=== PATIENT | female | born 1975 | race Caucasian/White ===

== ENCOUNTER 2017-11-05 05:19 | Emergency (ER) | payer OTHER ==
[~2017-11-05] VITALS: Ht 162.6 cm; Wt 57.6 kg
[~2017-11-05 05:19] MED LIST: AUGMENTIN 500-500 MG PO; LEVOFLOXACIN500 MG PO; LISINOPRIL-HCT1 EAC1 PO; METOPROLOL SUCC25 MG PO; OMEPRAZOLE20 MG PO; ZOFRAN ODT4 MG PO
--- NOTE | 2017-11-05 11:31 | EKG ---
[facility] [address] [facility] [place] [address] Signed Sinus tachycardia Otherwise normal ECG No previous ECGs available Confirmed by GOGO HILL MD ([id number]) on 11/05/2017 11:30:45 AM Electronically Signed By: GOGO HILL MD 11/05/17 1131 PATIENT NAME: RIVERA CAMILO CANDACE Electrocardiogram DATE OF : 75 PHYSICIAN: GOGO HILL MD REPORT #: [id number] REPORT IS CONFIDENTIAL AND NOT TO BE RELEASED WITHOUT AUTHORIZATION
== END 2017-11-05 09:49 | disposition short-term general hospital (02) ==
LOC: ED 05:19
PROC: 0T9B70Z Drainage of Bladder with Drainage Device, Via Natural or Artificial Opening (ICD-10-PCS; principal; 2017-11-05)
DX: S72.011A Unspecified intracapsular fracture of right femur, initial encounter for closed fracture (principal); F10.129 Alcohol abuse with intoxication, unspecified; I10 Essential (primary) hypertension; F17.200 Nicotine dependence, unspecified, uncomplicated; Z79.899 Other long term (current) drug therapy; W18.30XA Fall on same level, unspecified, initial encounter; Y90.8 Blood alcohol level of 240 mg/100 ml or more
CPT/HCPCS: 51702; 70450; 71045; 72125; 73501; 73502; 74177; 80053; 81001; 83690; 85025; 85610; 85730; 93005; 93010; 96374; 96375; 99285; G0480; J1170; J2060; J2405; J7030; Q9967

== ENCOUNTER 2019-03-06 06:15 | Day surgery (SDC) | payer OTHER ==
[~2019-03-06] VITALS: Ht 162.6 cm; Wt 62.1 kg
--- NOTE | ~2019-03-06 | OR ---
[facility] [address] [place], [place] [address] Draft DATE OF OPERATION: 03/06/2019 SURGEON: Antony Mathew MD PREOPERATIVE DIAGNOSIS: Bony mallet finger, right 5th. POSTOPERATIVE DIAGNOSIS: Bony mallet finger, right 5th. PROCEDURE: Open reduction and internal fixation of bony mallet finger, right 5th. ANESTHESIA: Michael block with some sedation. SPECIMENS AND COMPLICATIONS: There were no specimens or complications. WHAT WAS DONE: The patient was taken to the operating room. After Michael block was administered by the Anesthesia Service and the patient sedated, the right upper extremity was positioned, prepped and draped in a routine sterile fashion. Under biplanar fluoroscopic control, a single-ended 1.25 K-wire was drilled through the distal phalanx across the DIP joint and into the middle phalanx. This held the finger in good alignment and full extension. We then cut off the redundant part of the pin, bended over but left it outside the skin. We then made a zigzag incision over the dorsal aspect of the DIP joint. Skin was divided sharply. Subcutaneous tissue was bluntly spread. We elevated the extensor tendon off the bony fragment. We made sure the bony fragment was well reduced and then placed a single 1.8 mm anchor into the base of the distal phalanx and used the suture to advance the extensor tendon into the tip of the bone, which we had scarified with a small rongeur and a small curette. We then gently irrigated the wound and closed the wound in a standard fashion. Sterile dressings were applied, over which a bulky dressing was placed. The patient was awakened, taken to recovery room where she arrived in stable condition. Counts were correct and antibiotic protocols were followed. Antony Mathew MD PATIENT NAME: RIVERA CAMILO OPERATIVE REPORT DATE OF : 75 REPORT #: [id number] PHYSICIAN: ANTONY MATHEW MD PCP: JOURDAN MALHOTRA MD REPORT IS CONFIDENTIAL AND NOT TO BE RELEASED WITHOUT AUTHORIZATION [address] [place] [address] Draft [facility]/VLAD /[id number] Copies: ~ PATIENT NAME: RIVERA CAMILO OPERATIVE REPORT DATE OF : 75 REPORT #: [id number] PHYSICIAN: ANTONY MATHEW MD PCP: JOURDAN MALHOTRA MD REPORT IS CONFIDENTIAL AND NOT TO BE RELEASED WITHOUT AUTHORIZATION
[~2019-03-06 06:15] MED LIST changes: +ADVIL200 MG PO; +ATENOLOL50 MG PO; +CALCIUM500 MG PO; +ESCITALOPRAM OX10 MG PO; +FAMOTIDINE20 MG PO; +FOLIC ACID1 MG PO; +MULTIVITAMINS1 EAC8 PO; +OXYCODONE HCL5 MG PO; +VITAMIN B-1100 MG PO; +VITAMIN D32000 UNIT PO
--- NOTE | 2019-03-06 10:38 | NUR ---
03/06/19 Maureen ChapmanLupe 1029-PATIENT ARRIVED TO PACU ON 6L MASK AWAKE RR EVEN. PATIENT ABLE TO MOVE RIGHT HAND. RIGHT HAND ELEVATED ON PILLOW ICE APPLIED. PATIENTS FINGERS COOL PALPABLE RADIAL PULSE. PATIENT REPORTS HAS REYNAUDS DISEASE. DRESSING CDI TO 5TH FINGER 1035-PATIENT AWAKE ON RA 94% DENIES PAIN OR NAUSEA.
== END 2019-03-06 11:15 | disposition home or self-care (01) ==
LOC: DS 06:15 → OPS 06:15 → DS 09:00 → OPS 09:00
PROVIDERS: Orthopaedic Surgery
PROC: 0PHT34Z Insertion of Internal Fixation Device into Right Finger Phalanx, Percutaneous Approach (ICD-10-PCS; 2019-03-06)
PROC: 0LQ70ZZ Repair Right Hand Tendon, Open Approach (ICD-10-PCS; principal; 2019-03-06 09:00)
DX: M20.011 Mallet finger of right finger(s) (principal); F17.210 Nicotine dependence, cigarettes, uncomplicated; F32.9 Major depressive disorder, single episode, unspecified; F41.0 Panic disorder [episodic paroxysmal anxiety]; K21.9 Gastro-esophageal reflux disease without esophagitis; F41.9 Anxiety disorder, unspecified; I65.8 Occlusion and stenosis of other precerebral arteries; Z79.899 Other long term (current) drug therapy
CPT/HCPCS: 73140; C1713; J0690; J2405; J2704; J3010; J7120

== ENCOUNTER 2019-04-04 08:07 | Observation (INO) | payer OTHER ==
[~2019-04-04] VITALS: Ht 162.6 cm; Wt 62.1 kg
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
--- OUTSIDE RECORDS SUMMARY | ~2019-04-04 | XMS | Clinical Summary ---
Demographics + + + | Address | [address] | | | [place] [address] | + + + | Home Phone | | + + + | Preferred Language | Unknown | + + + | Marital Status | | + + + | Roman Catholic Affiliation | Unknown | + + + [...] Providers + +------+ + | Care Commercial Finance Manager Name | Role | Phone | + +------+ + PCP | Unavailable | + +------+ + Source Comments SAMUEL is fully live on both [facility] and [facility] Allergies Not on File Medications + + [...] | BCBS | [phone] | 09/26/19 | [phone] | [address] | PPO | | SHIELD | OUT OF | x | 06-Pre | 8 | [address] | | | | STATE | | sent | | [place], | | | | | | | | [place] | | | | | | | | [address] | | + +--------+ +--------+ + +------+ + +--------+ +--------+ + + | Guarantor Name | Accoun | Relation to | Date | Phone | Billing Address | | | t Type | Patient | of | | | | | | | | | | + +--------+ +--------+ + + | Ethel Gomez | Person | Self [birth year] | [address] | | | al/Fam | | 1976 | [phone] | [place] [address] | | | [place] | | | 4 (Home) | | | | | | | [phone] | | | | | | | [phone] | | | | | | | (Work) | | + +--------+ +--------+ + +
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
--- OUTSIDE RECORDS SUMMARY | ~2019-04-04 | XMS | Encounter Summary ---
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 She lives in [place], [place]. Family History: Notable for breast cancer [...] event of any recurrences. Sarina Chan M.D. [facility] / [id number] / [id number] / [phone] / cc: Antony Cowan M.D. [facility] [address] [place] [address] [address] [place], [place] [id number] signed by Interface, Care Transition Coordinator In at 12/12/2005 3:05 AM PDTdocumented in this encounter Plan of Treatment Not on filedocumented as of this encounter Visit Diagnoses Not on filedocumented in this encounter"
--- OUTSIDE RECORDS SUMMARY | ~2019-04-04 | XMS | Clinical Summary ---
Demographics + + + | Address | [address] | | | [place] [address] | + + + | Home Phone | | + + + | Preferred Language | Unknown | + + + | Marital Status | | + + + | Sabianist Affiliation | Unknown | + + + | Race | Unknown | + + + | Ethnic Group | Unknown | + + + Author + + + | Author | [facility] | | | and [place] | + + + | Organization | [facility] | | | and [place] | + + + | Address | Unknown | + + + | Phone | Unavailable | + + + Support + + + + + | Name | Relationship | Address | Phone | + + + + + | Ailyn Velasquez | ECON | [address] | | | | | [place] | | | | | [address] | | + + + + + | Venkatesh Gomez | ECON | Unknown | | + + + + + Care Team Providers + +------+ + | Care Technical Training Specialist Name | Role | Phone | [...] | JORGE - | | 10/18/ | [id number] | | Sn/AImplanted: Qty: 1 on | c | Hip | ZIMM | | 2027 | 662 | | 11/06/2017 by Bernabe, | | | | | | /N/A | | Ryan Rios MD | | | | | | /[id number] | | | | | | | | 08 | + +--------+--------+ +--------+--------+--------+ | Liner Cocr Dl Mob 40mm D - | Generi | Right: | JORGE - | | 07/25/ | [id number] | | Sn/AImplanted: Qty: 1 on | c | Hip | ZIMM | | 2027 | 462 | | 11/06/2017 by Bernabe, | | | | | | /N/A | | Ryan Rios MD | | | | | | /[id number] | | | | | | | | 0 | + +--------+--------+ +--------+--------+--------+ | Imp Hip Acet Lnr E-Ply | Generi | Right: | JORGE - | | 09/22/ | EP-200 | | [id number] - Sn/AImplanted: Qty: | c | Hip | ZIMM | | 2022 | 146 | | 1 on 11/06/2017 by | | | | | | /N/A | | Ryan Kidd MD | | | | | | /[id number] | | | | | | | [...] MD | | | | | | /[id number] | | | | | | | | 37 | + +--------+--------+ +--------+--------+--------+ | Imp Hip Fem Stem Actis Std | Generi | Right: | JJHCS DEPUY | | 10/24/ | [id number] | | [id number] - Sn/AImplanted: Qty: 1 [...] | [employer] | MODA | [id number] | | [phone] | | Medica | | MEDICAID HMO [...] Person | Self | [birth year] | [address] | | | al/Fam | | 1976 | [phone] | [place] [address] | | | [place] | | | 4 (Home) | | + +--------+ +--------+ + + Advance Directives Patient has advance care planning documents, and code status on file. For more information, please contact:[facility] [place] [address] + + + + + | Code [...]
--- OUTSIDE RECORDS SUMMARY | ~2019-04-04 | XMS | Clinical Summary ---
Demographics + + + | Address | [address] | | | [place] [address] | + + + | Home Phone | | + + + | Preferred Language | Unknown | + + + | Marital Status | | + + + | Latter Day Affiliation | Unknown | + + + | Race | Unknown | + + + | Ethnic Group | Unknown | + + + Author + + + | Author | [facility] | | | and [place] | + + + | Organization | [facility] | | | and [place] [...] [place] | | | | | [address] | | + + + + + | Venkatesh Gomez | ECON | Unknown | | + + + + + Care Team Providers + +------+ + | Care Photo Mask Inspector Name | Role | Phone | + [...] | JORGE - | | 10/18/ | [id number] | | Sn/AImplanted: Qty: 1 on | c | Hip | ZIMM | | 2027 | 662 | | 11/06/2017 by Bernabe, | | | | | | /N/A | | Ryan Rios MD | | | | | | /[id number] | | | | | | | | 08 | + +--------+--------+ +--------+--------+--------+ | Liner Cocr Dl Mob 40mm D - | Generi | Right: | JORGE - | | 07/25/ | [id number] | | Sn/AImplanted: Qty: 1 on | c | Hip | ZIMM | | 2027 | 462 | | 11/06/2017 by Bernabe, | | | | | | /N/A | | Ryan Rios MD | | | | | | /[id number] | | | | | | | | 0 | + +--------+--------+ +--------+--------+--------+ | Imp Hip Acet Lnr E-Ply | Generi | Right: | JORGE - | | 09/22/ | EP-200 | | [id number] - Sn/AImplanted: Qty: | c | Hip | ZIMM | | 2022 | 146 | | 1 on 11/06/2017 by | | | | | | /N/A | | Ryan Kidd MD | | | | | | /[id number] | | | | | | | [...] MD | | | | | | /[id number] | | | | | | | | 37 | + +--------+--------+ +--------+--------+--------+ | Imp Hip Fem Stem Actis Std | Generi | Right: | JJHCS DEPUY | | 10/24/ | [id number] | | Sz4 - Sn/AImplanted: Qty: 1 [...] | [employer] | [employer] | [id number] | | [phone] | | [employer] | | MEDICAID HMO [...] Person | Self | [birth year] | [address] | | | al/Fam | | 1976 | [phone] | [place] [address] | | | [place] | | | 4 (Home) | | + +--------+ +--------+ + + Advance Directives Patient has advance care planning documents, and code status on file. For more information, please contact:[facility] [place] [address] + + + + + | Code [...]
--- OUTSIDE RECORDS SUMMARY | ~2019-04-04 | XMS | Clinical Summary ---
Demographics + + + | Address | [address] | | | [place] [address] | + + + | Home Phone | | + + + | Preferred Language | Unknown | + + + | Marital Status | | + + + | Hinduism Affiliation | Unknown | + + + [...] Team Providers + +------+ + | Care Senior Net Engineer Name | Role | Phone | + +------+ + PCP | Unavailable | + +------+ + Source Comments SAMUEL is fully live on both [facility] and [facility] InPatient.[facility] Allergies Not on File Medications + + [...] | BCBS | xxxxxxxxxxx | 09/26/19 | [phone] | [address] | PPO | | SHIELD | OUT OF | x | 06-Pre | 8 | [address] | | | | STATE | | sent | | [place], | | | | | | | | [place] | | | | | | | | [phone] | | + +--------+ +--------+ + +------+ + +--------+ +--------+ + + | Guarantor Name | Accoun | Relation to | Date | Phone | Billing Address | | | t Type | Patient | of | | | | | | | | | | + +--------+ +--------+ + + | Ethel Gomez | Person | Self | [birth year] | [address] | | | al/Fam | | 1976 | [phone] | [place] [address] | | | [place] | | | 4 (Home) | | | | | | | [phone] | | | | | | | [phone] | | | | | | | (Work) | | + +--------+ +--------+ + +
--- OUTSIDE RECORDS SUMMARY | ~2019-04-04 | XMS | Encounter Summary ---
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 She lives in [place], [place]. Family History: Notable for breast cancer [...] event of any recurrences. Sarina Chan M.D. [facility] / [id number] / [id number] / [id number] / cc: Antony Cowan M.D. [facility], [facility] [address] [place] [address] [address] [place], [place] [id number] signed by Interface, Teaching Assistant In at 12/12/2005 3:05 AM PDTdocumented in this encounter Plan of Treatment Not on filedocumented as of this encounter Visit Diagnoses Not on filedocumented in this encounter"
--- OUTSIDE RECORDS SUMMARY | ~2019-04-04 | XMS | Encounter Summary ---
Demographics + + + | Address | [address] | | | [place] [address] | + + + | Home Phone | | + + + | Preferred Language | Unknown | + + + | Marital Status | | + + + | Nondenominational Affiliation | Unknown | + + + | Race | White | + + + | Ethnic Group | Not or | + + + Author + + + | Author | [facility] | + + + | Organization | [facility] | + + + | Address | Unknown | + + + | Phone | Unavailable | + + + Support + + +---------+ + | Name | Relationship | Address | Phone | + + +---------+ + | Missy Quinonez | ECON | Unknown | | + + +---------+ + Care Team Providers + +------+ + | Care Gameplay Engineer Name | Role | Phone | [...] | 2005 | Visit | [facility] | [address] | (Primary Dx) | | | | [address] [place], | | | | | [address] | [place] [address] | | | | | [facility] | [phone] | | | | | [place], [place] | | | | | | [address] | | | | | | [phone] | | | +--------+---------+ + + + [...] Griffin - 03/18/2006 11:50 AM PDT NEW ELEVATOR ATTENDANT VISIT Ethel Gomez is a 30 y.o. [...] This was performed by Dr. Delaney in [place]. She has had pain for 10 years. 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 She does exercise. She drinks 1 alcoholic [...]
--- OUTSIDE RECORDS SUMMARY | ~2019-04-04 | XMS | Encounter Summary ---
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 She lives in [place], [place]. Family History: Notable for breast cancer [...] event of any recurrences. Sarina Chan M.D. [facility] / [id number] / [id number] / [id number] / cc: Antony Cowan M.D. [facility], [place] [facility] [address] [place] [address] [address] [place], [place] [id number] signed by Interface, Retort Condenser Attendant In at 12/12/2005 3:05 AM PDTdocumented in this encounter Plan of Treatment Not on filedocumented as of this encounter Visit Diagnoses Not on filedocumented in this encounter"
--- OUTSIDE RECORDS SUMMARY | ~2019-04-04 | XMS | Clinical Summary ---
Demographics + + + | Address | [address] | | | [place] [address] | + + + | Home Phone | | + + + | Preferred Language | Unknown | + + + | Marital Status | | + + + | Sikh Affiliation | Unknown | + + + [...] Team Providers + +------+ + | Care Certified Meeting Professional Name | Role | Phone | + +------+ + PCP | Unavailable | + +------+ + Source Comments SAMUEL is fully live on both [facility] and [facility] InPatient.[facility] Allergies Not on File Medications + + [...] | BCBS | xxxxxxxxxxx | 09/26/19 | [phone] | [address] | PPO | | SHIELD | OUT OF | x | 06-Pre | 8 | [phone] | | | | STATE | | sent | | [place], | | | | | | | | [place] | | | | | | | | [phone] | | + +--------+ +--------+ + +------+ + +--------+ +--------+ + + | Guarantor Name | Accoun | Relation to | Date | Phone | Billing Address | | | t Type | Patient | of | | | | | | | | | | + +--------+ +--------+ + + | Ethel Gomez | Person | Self | [birth year] | [address] | | | al/Fam | | 1976 | [phone] | [place] [address] | | | [place] | | | 4 (Home) | | | | | | | [phone] | | | | | | | [phone] | | | | | | | (Work) | | + +--------+ +--------+ + +
--- OUTSIDE RECORDS SUMMARY | ~2019-04-04 | XMS | Encounter Summary ---
Demographics + + + | Address | [address] | | | [place] [address] | + + + | Home Phone [...] + + + | Author | [facility] | + + + | Organization | [facility] | + + + | Address | Unknown | + + + | Phone | Unavailable | + + + Support + + +---------+ + | Name | Relationship | Address | Phone | + + +---------+ + | Missy Qunionez | ECON | Unknown | | + + +---------+ + Care Team Providers + +------+ + | Care Schedule Announcer Name | Role | Phone | + [...] | 2005 | Visit | [facility] | [address] | (Primary Dx) | | | | [address] [place], | | | | | [address] | [place] [address] | | | | | [facility] | [phone] | | | | | [place], [place] | | | | | | [address] | | | | | | [phone] | | | +--------+---------+ + + + [...] Griffin - 03/18/2006 11:50 AM PDT NEW EARLY CHILDHOOD EDUCATOR AIDE VISIT Ethel Gomez is a 30 y.o. [...] This was performed by Dr. Delaney in [place]. She has had pain for 10 years. 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 She does exercise. She drinks 1 alcoholic [...]
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
--- NOTE | 2019-04-04 11:35 | NUR ---
IVF STARTED. DILAUDID 0.6MG IV GIVEN FOR PAIN, SBA INTO BATHROOM TO VOID 400ML DARK YELLOW URINE. BACK TO BED WITH CALL LIGHT IN EASY REACH. FRIEND AT BEDSIDE.
--- NOTE | 2019-04-04 16:51 | NUR ---
patient has been complaining of a painful neck, especially when turning head to the left. Up to the restroom with help from daughter and myself. Some dizzyness when up, plan to use bedside commode next time.
--- NOTE | 2019-04-04 16:54 | NUR ---
recently awoke from a long nap, about 2 hours. caregiver in room in the bed with patient. vital signs done. tv on.
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
--- NOTE | 2019-04-04 17:59 | EKG ---
[facility] [address] [facility] [place] [address] Signed Normal sinus rhythm Normal ECG When compared with ECG of 27-FEB-2019 08:42, Vent. rate has increased BY 44 BPM Nonspecific T wave abnormality now evident in Inferior leads QT has lengthened Confirmed by GOGO HILL MD ([id number]) on 04/04/2019 5:59:15 PM Electronically Signed By: GOGO HILL MD 04/04/19 1759 PATIENT NAME: RIVERA CAMILO CANDACE Electrocardiogram DATE OF : 75 PHYSICIAN: GOGO HILL MD REPORT #: [id number] REPORT IS CONFIDENTIAL AND NOT TO BE RELEASED WITHOUT AUTHORIZATION
--- NOTE | 2019-04-04 18:16 | NUR ---
VITALS/I&Os RECORDED, GOT PT FRESH HOT BROTH
--- NOTE | 2019-04-04 18:22 | NUR ---
Has been very painful and hurts more with deep breathing. Has been walking to bathroom with help but now more unsteady, bedside commode next to bed now. calls when needs to get up. Alert and oriented.
--- NOTE | 2019-04-04 19:19 | NUR ---
CHARGE NURSE REPORT RECEIVED FROM ROSA. PT IN BED, TV ON.
--- NOTE | 2019-04-04 19:30 | NUR ---
RECEIVED REPORT FROM DAY SHIFT RN. PATIENT IS RESTING IN BED WATCHING TV. PATIENT RATES PAIN AT A 6/10. PATIENT IS REQUESTING PRN PAIN MEDICATION WHEN AVAILABLE. NO FURTHER NEEDS NOTED. CALL LIGHT IN REACH.
--- NOTE | 2019-04-04 20:15 | NUR ---
PATIENT ASSESMENT COMPLETED. PATIENT RATES PAIN AT A 6/10. PATIENT GIVEN PRN PAIN MEDICATION PER ORDER. PATIENTS IV INFUSING PER ORDER. BROTH GIVEN PER REQUEST. NO FURTHER NEEDS NOTED. CALL LIGHT IN REACH.
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
--- NOTE | 2019-04-05 00:34 | NUR ---
PT CALLED. WITH MIMINAL ASSISTANCE, PT AMBULATE TO BATHROOM, C/O RIGHT RIB PAIN. MOVED VERY SLOWLY, REMINDED TO TAKE DEEP BREATHS, NOT TO HOLD HER BREATH D/T PAIN. LIFTED LEGS BACK INTO BED, SHE ADJUSTED SELF ONCE IN BED, WITH INCREASED PAIN COMPLAINTS. IV INFUSING PER ORDER.
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
--- NOTE | 2019-04-05 03:01 | NUR ---
PATIENT CALLED IN TEARS AND REQUESTED PAIN MEDICATION. PATIENT RATES PAIN AT A 10/10 IN HER LEFT UPPER CHEST AND POINTS TO HER STERNAL AREA. PATIENT GIVEN PRN PAIN MEDICATION PER ORDER. PATIENT THEM BEGAN TO FEEL NAUSEOUS BUT DID NOT HAVE ANY EMESIS. PRN IV PAIN MEDICATION WAS RUN ON PUMP IN 20ML SALINE OVER 5 MINUTES. PATIENT GIVEN PRN NAUSEA MEDICATION. PATIENT IS NOWW RESTING IN BED COMFORTABLY. PATIENT DENIES ANY FURTHER NEEDS. CALL LIGHT IN REACH.
--- NOTE | 2019-04-05 03:59 | NUR ---
PATIENT IS RESTING IN BED WITH EYES CLOSED, RR 16. CALL LIGHT IN REACH.
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
--- NOTE | 2019-04-05 05:24 | NUR ---
PATIENT ASSISTED TO THE RESTROOM A SBA TO THE BR. PATIENT WAS ABLE TO VOID. PATIENT IS NOW BACK IN BED RESTING. PATIENT IS CRYING AND COMPLAINS OF 10/10 PAIN IN HER STERNAL AREA. PATIENT GIVEN PRN PAIN MEDICATION PER ORDER. PATIENT IS VERY ANXIOUS. PRN ANXIETY MEDICATION PER ORDER. PATIENTS VITALS TAKEN AND RECORDED. PATIENTS INTAKE AND OUPUT RECORDED. PATIENT IS AAOX3. NO FURTHER NEEDS NOTED. CALL LIGHT IN REACH.
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
--- NOTE | 2019-04-05 07:38 | NUR ---
DR AVILA IN EARLY THIS MORNING AND DISCHARGE ORDER NOTED. PT AWAKE AT THIS TIME, SBA INTO BATHROOM TO VOID, NEEDS CONSTANT REASSURANCE AND INSTRUCTION ON SPLINTING FOR PAIN IN R RIBS AND STERNUM. USING IS WELL, REMAINS ON ROOM AIR. GOOD FLUID INTAKE.
--- NOTE | 2019-04-05 08:00 | NUR ---
PATIENT RESTING IN BED. ICE WATER GIVEN. CALL LIGHT WITHIN REACH. NO OTHER NEEDS AT THIS TIME
[2019-04-05] MEDS ORDERED: ATENOLOL50 MG PO (08:24)
[2019-04-05] MEDS ORDERED: PEPCID20 MG PO (08:24)
--- NOTE | 2019-04-05 08:25 | NUR ---
MED REC COMPLETE
[2019-04-05] MEDS ORDERED: PERCOCET 10-321 EACH PO (08:54)
[2019-04-05] MEDS ORDERED: ADVIL200 MG PO (08:56)
[2019-04-05] MEDS ORDERED: MIRALAX17 GM PO (08:57)
--- NOTE | 2019-04-05 09:47 | NUR ---
PATIENT RESTING IN BED. VITAL SIGNS AND I&O DONE. CALL LIGHT WITHIN REACH. NO OTHER NEEDS AT THIS TIME
--- NOTE | 2019-04-05 10:01 | NUR ---
PT IS AWAKE, SBA INTO BATHROOM TO VOID, BREAKFAST ORDERED, A CUP OF PUDDING WITH PAIN MEDICATION JUST NOW, DOING WELL USING INCENTIVE SPIROMETER WITH ENCOURAGEMENT. PHARMACY IN AND SPOKE WITH PT ABOUT MEDICATIONS, AGAIN STATES TO ME SHE HAS NO QUESTIONS. SHE IS CALLING FRIEND FOR RIDE HOME AFTER BREAKFAST.
--- NOTE | 2019-04-05 11:54 | NUR ---
PT IS MORE AWAKE NOW, MEDICATED FOR PAIN WITH PERCOCET. USING IS. HAS A FRIEND COMING TO [facility]PUTY [facility] [employer] PERSCRIPTION BEFORE PICKING HER UP TO GO HOME. REVIEWED DISCHARGE INSTRUCTIONS FOR FOR MEDS AND FOLLOWUP APPOINTMENT. VERBALIZES UNDERSTANDING. DENIES ANY QUESTIONS OR FURTHER CONCERNS.
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
--- NOTE | 2019-04-05 13:00 | NUR ---
SPOKE WITH PATIENT IN THE ROOM. PT LIVES WITH , HE IS ON HIS WAY HOME FROM [place]. SHE STATES SHE HAS GOOD FRIENDS WHO WILL TAKE HER HOME AND HELP HER. OFFERED A VISIT FROM [facility] FOR A[facility]D SERVICES. PATIENT DOES NOT FEEL SHE NEEDS THIS. DISCUSSED TO UNDERSTAND DISCHARGE INSTRUCTIONS SUCH MEDS AND SIDE EFFECTS, FOLLOW UP APPOINTMENTS AND DIAGNOSIS. DISCUSSED TO UNDERSTAND WHAT SHE IS SUPPOSED TO WATCH FOR AND WHO TO CALL IF SHE HAS PROBLEMS. SHE UNDERSTANDS TO CALL HER PCP OR COME TO CLINIC OR ED IF IT IS SERIOUS. WE DISCUSSED IMPORTANCE OF USING IS AND CDB. DISCUSSED CONSTIPATING EFFECTS OF PAIN MEDICATIONS AND TO BE AWARE OF BOWEL FUNCTION. PATIENT STATES UNDERSTANDING AND DENIES FUTHER QUESTIONS.
--- NOTE | 2019-04-05 13:15 | NUR ---
PATIENT SITTING UP IN BED. VITAL SIGNS AND I&O DONE. BODY LOTION PROVIDED. CALL LIGHT WITHIN REACH. NO OTHER NEEDS AT THIS TIME
--- NOTE | 2019-04-05 14:33 | NUR ---
MADE A QUICK VISIT WITH PT-SHE WAS DEFINATELY IN SOMED DISCOMFORT. GAVE ENCOURAGEMENT AND A BLESSING. WILL FOLLOW NEEDED
--- NOTE | 2019-04-05 14:49 | NUR ---
PT IS FEELING MUCH BETTER, UP TO SINK TO WASH FACE, MINIMAL ASSIST, USING IS INSTRUCTED, ANXIETY MUCH IMPROVED, MEDICATED AT THIS TIME FOR PAIN. STATES IS LEAVING [place] AND WILL BE HERE TO PICK HER UP.
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
--- NOTE | 2019-04-05 16:40 | NUR ---
PT IN BETTER SPIRITS, HERE TO TAKE PT HOME. AGAIN STATES SHE UNDERSTANDS MEDS AND FOLLOWUP APPOINTMENT. DC HOME AT THIS TIME.
== END 2019-04-05 16:30 | disposition home or self-care (01) ==
LOC: ED 08:07 → MS 08:08
PROVIDERS: ADMIT Colon & Rectal Surgery
DX: S22.41XA Multiple fractures of ribs, right side, initial encounter for closed fracture (principal); S22.21XA Fracture of manubrium, initial encounter for closed fracture; V48.5XXA Car driver injured in noncollision transport accident in traffic accident, initial encounter; I10 Essential (primary) hypertension; F17.200 Nicotine dependence, unspecified, uncomplicated; R56.9 Unspecified convulsions; F10.10 Alcohol abuse, uncomplicated; Z98.890 Other specified postprocedural states; Y92.410 Unspecified street and highway as the place of occurrence of the external cause
CPT/HCPCS: 29130; 36415; 70450; 71045; 71260; 72125; 73130; 74177; 80053; 81001; 82150; 82550; 83690; 83735; 84100; 85025; 86850; 86900; 86901; 93005; 93010; 94760; 96375; 96376; 99285-25; G0378; G0480; J1170; J1885; J2405; J2550; J3010; J7030; J7121; Q9967

== ENCOUNTER → 2019-04-17 | Emergency (ER) | payer OTHER ==
[~2019-04-17] VITALS: Ht 162.6 cm; Wt 62.1 kg
[~2019-04-17] MED LIST changes: +MIRALAX17 GM PO; +PEPCID20 MG PO; +PERCOCET 10-321 EACH PO
--- OUTSIDE RECORDS SUMMARY | ~2019-04-17 | XMS | Clinical Summary ---
Demographics + + + | Address | [address] | | | [place] [address] | + + + | Home Phone | | + + + | Preferred Language | Unknown | + + + | Marital Status | | + + + | Worship Affiliation | Unknown | + + + | Race | White | + + + | Ethnic Group | Not or | + + + Author + + + | Author | [facility] | + + + | Organization | [facility] | + + + | Address | Unknown | + + + | Phone | Unavailable | + + + Support + + +---------+ + | Name | Relationship | Address | Phone | + + +---------+ + | Missy Quinonez | ECON | Unknown | | + + +---------+ + Care Team Providers + +------+ + | Care Peoplesoft Business Analyst Name | Role | Phone | + +------+ + PCP | Unavailable | + +------+ + Source Comments SAMUEL is fully live on both [facility] and [facility] Allergies Not on File Medications + + + +---------+------+------+-------+ | Medication | Sig | Dispensed | Refills | Star | End | Statu | | | | | | t | Date | s | | | | | | Date | | | + + + +---------+------+------+-------+ | RESTORIL OR | 1 tab per bed hour | | 0 | | | Activ | | | pm | | | | | e | + + + +---------+------+------+-------+ | VICODIN OR | 360mg 1-2 tab every | | 0 | | | Activ | | | 4 hours prn | | | | | e | + + + +---------+------+------+-------+ | DEPO-PROVERA 150 | inject 1 milliliter | 4 | 0 | 02/26 | | Activ | | MG/ML IM | (150mg) by | | | 08/16 | | e | | SYRINGEIndications: | intramuscular route | | | 06 | | | | Endometriosis | every 3 months | | | | | | + + + +---------+------+------+-------+ | | None Entered | | 0 | | | Activ | | MEDROXYPROGESTERONE | | | | | | e | | (CONTRACEPTIVE) 150 | | | | | | | | MG/ML IM SUSP | | | | | | | + + + +---------+------+------+-------+ Active Problems Not on file Immunizations + + + + | Name | Administration Dates | Next Due | + + + + | Medroxyprogesterone | 03/18/2006 | 06/03/2006 | | Acetate | | | | (depo-provera) | | | + + + + Social History + [...] recent travel history available. | + + Last Filed Vital Signs + + + [...] | | + + + + + Plan of Treatment + + + + + | Health Maintenance | Due Date | Last Done | Comments | + + + + + | Influenza (Flu) | | | | | vaccination (#1) | 9 | | | + + + + + | Pneumococcal | Aged Out | | No longer eligible | | vaccination | | | based on patient's | | | | | age to complete this | | | | | topic | + + + + + Results Not on filefrom Last 3 Months Insurance + +--------+ +--------+ + +------+ | Payer | Benefi | Subscriber | Effect | Phone | Address | Type | | | t Plan | ID | fátima | | | | | | / | | Dates | | | | | | Group | | | | | | + +--------+ +--------+ + +------+ | BLUE CROSS BLUE | BCBS | [phone] | 09/26/19 | [phone] | [address] | PPO | | SHIELD | OUT OF | x | 06-Pre | 8 | [address] | | | | STATE | | sent | | [place], | | | | | | | | [place] | | | | | | | | [address] | | + +--------+ +--------+ + +------+ + +--------+ +--------+ + + | Guarantor Name | Accoun | Relation to | Date | Phone | Billing Address | | | t Type | Patient | of | | | | | | | | | | + +--------+ +--------+ + + | Ethel Gomez | Person | Self | [birth year] | [address] | | | al/Fam | | 1976 | [phone] | [place] [address] | | | [place] | | | 4 (Home) | | | | | | | [phone] | | | | | | | [phone] | | | | | | | (Work) | | + +--------+ +--------+ + +
--- OUTSIDE RECORDS SUMMARY | ~2019-04-17 | XMS | Encounter Summary ---
Demographics + + + | Address | [address] | | | [place] [address] | + + + | Home Phone | | + + + | Preferred Language | Unknown | + + + | Marital Status | | + + + | Druze Affiliation | Unknown | + + + | Race | White | + + + | Ethnic Group | Not or | + + + Author + + + | Author | [facility] | + + + | Organization | [facility] | + + + | Address | Unknown | + + + | Phone | Unavailable | + + + Support + + +---------+ + | Name | Relationship | Address | Phone | + + +---------+ + | Missy Quinonez | ECON | Unknown | | + + +---------+ + Care Team Providers + +------+ + | Care Threading Machine Setter Name | Role | Phone | + [...] Anthony Hoff MD | Endometriosis | | 2005 | Visit | [facility] | [address] | (Primary Dx) | | | | [address] | [address] [place], | | | | | [address] | [place] [address] | | | | | [facility] | [phone] | | | | | [place], [place] | | | | | | [address] | | | | | | [phone] | | | +--------+---------+ + + + [...] Reeves - 03/18/2006 11:50 AM PDT NEW THREADING MACHINE SETTER VISIT Ethel Gomez is a 30 y.o. [...] This was performed by Dr. Delaney in [place]. She has had pain for 10 years. [...] with children. 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 She does exercise. She drinks 1 alcoholic [...]
--- OUTSIDE RECORDS SUMMARY | ~2019-04-17 | XMS | Encounter Summary ---
Demographics + + + | Address | [address] | | | [place] [address] | + + + | Home Phone | | + + + | Preferred Language | Unknown | + + + | Marital Status | | + + + | Restorationism Affiliation | Unknown | + + + | Race | White | + + + | Ethnic Group | Not or | + + + Author + + + | Author | [facility] | + + + | Organization | [facility] | + + + | Address | Unknown | + + + | Phone | Unavailable | + + + Support + + +---------+ + | Name | Relationship | Address | Phone | + + +---------+ + | Missy Quinonez | ECON | Unknown | | + + +---------+ + Care Team Providers + +------+ + | Care Filler Feeder Name | Role | Phone | + [...] | 2005 | Visit | [facility] | [address] | (Primary Dx) | | | | [address] | [address] [place], | | | | | [address] | [place] [address] | | | | | [facility] | [phone] | | | | | [place], [place] | | | | | | [address] | | | | | | [phone] | | | +--------+---------+ + + + [...] Reeves - 03/18/2006 11:50 AM PDT NEW ENGINE REPAIRER SERVICE VISIT Ethel Gomez is a 30 y.o. [...] This was performed by Dr. Delaney in [place]. She has had pain for 10 years. 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 She does exercise. She drinks 1 alcoholic [...]
--- OUTSIDE RECORDS SUMMARY | ~2019-04-17 | XMS | Encounter Summary ---
Demographics + + + | Address | [address] | | | [place] [address] | + + + | Home Phone | | + + + | Preferred Language | Unknown | + + + | Marital Status | | + + + | Scientologist Affiliation | Unknown | + + + | Race | White | + + + | Ethnic Group | Not or | + + + Author + + + | Organization | Unknown | + + + | Address | Unknown | + + + | Phone | Unavailable | + + + Support + + +---------+ + | Name | Relationship | Address | Phone | + + +---------+ + | Missy Quinonez | ECON | Unknown | | + + +---------+ + Care Team Providers + +------+ + | Care Data Modeling Specialist Name | Role | Phone | + +------+ + PCP | Unavailable | + +------+ + Encounter Details +--------+ + + + + | Date | Type | Department | Care Team | Description | +--------+ + + + + | 03/06/ | Office | | Note, Outpatient | Progress Note | | 2002 | Visit-Trans | | Clinic | | | | cribed | | | | +--------+ + + + [...] documented as of this encounter Progress Notes Interface, Dry Wall Plasterer In - 12/12/2005 3:05 AM PDTClinic Date: 03/06/2003 Clinic: Referring Physician: Antony Cowan M.D. CONSULT NOTE Identification/Chief Complaint: This is a 27-year-old with chronic recurrent breast cysts. History of Present Illness: Ethel was referred by Dr. Antony Cowan for evaluation of possible infections after breast augmentation. Ethel underwent a breast augmentation with saline implants placed in submuscular plane in September 2001. She has had chronic problem since that time with development of cyst which developed in a very superficial plane progressing to the point of bleeding and draining serosanguinous fluid. She has had cysts removed. She has undergone ultrasound and aspiration of cysts. No infections have ever been documented. She complains currently of pain around the area of a prior cyst, though she denies any open wounds at this time. Past Medical History: Noncontributory. Past Surgical History: Significant for a skin graft to her left knee, foot trauma in 1992, biopsy of a cyst in 1995 which was benign, and a breast augmentation in 2001. Review of Systems: Positive for headaches, difficulty sleeping, and significant stress and anxiety. Negative in all other systems questioned. Allergies: She has no known drug allergies. Medications: She takes Tylenol and Motrin as needed for pain. Social History: She is a nonsmoker and does drink alcohol 1 to 2 times per week. 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 She lives in [place], [place]. Family History: Notable for breast cancer in maternal grandmother diagnosed 6 months ago and currently being treated with radiation. Lupus in her aunt, and fibrocystic disease in her mother. Physical Examination General: Ethel is attractive and well-appearing young woman. Chest: Breasts: Focused examination of the chest reveals an excellent result after submuscular breast augmentation with well healed incisions. There are no open wounds on the breast at this time. There is a slight area of hyperpigmentation on the right breast at the 3 o'clock position just medial to the areola. On the left breast, is an area of slight concavity in the skin at the 9 o'clock position just medial to the left areola. The implants are soft and mobile. Limon class I bilaterally. Palpation reveals no discrete masses. Her scars are perioral incisions which are well healed. There is no inframammary crease, rashes, or skin lesions. The axilla are free from skin lesions. The groin is free from skin lesions. Assessment and Plan: Ethel has an interesting problem of recurrent skin cyst after breast augmentation. It does not appear that these are representing an infection of the implant. In fact at this time, she has an excellent aesthetic result with no evidence of infection whatsoever. She does have a family history of fibrocystic disease. Her mother having a history of this. She also has a significant history of breast cancer. Finally, she herself has a history of benign cyst having been excised prior to her breast augmentation. It seems most likely that Ethel is continuing to have fibrocystic disease which is presenting in a very superficial manner. It is also possible that she has endometriosis, so she denies any outbreaks corresponding to her menstrual periods. The fact that she has bloody drainage is suggestive of this possibility. I have recommended to Ethel that we obtain a biopsy of one of her cysts when she does have an outbreak as she has not had any pathology done on her cyst since 1995. She will contact me immediately if she does develop a new lesion on her breast so that we can schedule her to come in and undergo a local biopsy. Meanwhile, I have reassured her that she does not appear to have an implant infection and in fact the 2 diagnoses are probably unrelated. I think it is highly unlikely that she has any sort of allergic reaction to her implants, and we did not discuss this as a possibility. She will contact me for followup in the event of any recurrences. Sarina Chan M.D. [facility] / [id number] / [id number] / [id number] / cc: Antony Cowan M.D. [facility], [facility] [address] [place] [address] [address] [place], [place] [id number] signed by Interface, Dry Wall Plasterer In at 12/12/2005 3:05 AM PDTdocumented in this encounter Plan of Treatment Not on filedocumented as of this encounter Visit Diagnoses Not on filedocumented in this encounter"
--- OUTSIDE RECORDS SUMMARY | ~2019-04-17 | XMS | Clinical Summary ---
Demographics + + + | Address | [address] | | | [place] [address] | + + + | Home Phone | | + + + | Preferred Language | Unknown | + + + | Marital Status | | + + + | Adventist Affiliation | Unknown | + + + | Race | Unknown | + + + | Ethnic Group | Unknown | + + + Author + + + | Author | [facility] | | | and Shawn[place] | + + + | Organization | [facility] | | | and [...] [place] | | | | | [address] | | + + + + + | Venkatesh Gomez | ECON | Unknown | | + + + + + Care Team Providers + +------+ + | Care News Video Editor Name | Role | Phone | + [...] | JORGE - | | 10/18/ | [id number] | | Sn/AImplanted: Qty: 1 on | c | Hip | ZIMM | | 2027 | 662 | | 11/06/2017 by Bernabe, | | | | | | /N/A | | Ryan Rios MD | | | | | | /[id number] | | | | | | | | 08 | + +--------+--------+ +--------+--------+--------+ | Liner Cocr Dl Mob 40mm D - | Generi | Right: | JORGE - | | 07/25/ | [id number] | | Sn/AImplanted: Qty: 1 on | c | Hip | ZIMM | | 2027 | 462 | | 11/06/2017 by Bernabe, | | | | | | /N/A | | Ryan Rios MD | | | | | | /[id number] | | | | | | | | 0 | + +--------+--------+ +--------+--------+--------+ | Imp Hip Acet Lnr E-Ply | Generi | Right: | JORGE - | | 09/22/ | EP-200 | | [id number] - Sn/AImplanted: Qty: | c | Hip | ZIMM | | 2022 | 146 | | 1 on 11/06/2017 by | | | | | | /N/A | | Ryan Kidd MD | | | | | | /[id number] | | | | | | | [...] MD | | | | | | /[id number] | | | | | | | | 37 | + +--------+--------+ +--------+--------+--------+ | Imp Hip Fem Stem Actis Std | Generi | Right: | JJHCS DEPUY | | 10/24/ | [id number] | | [id number] - Sn/AImplanted: Qty: 1 [...] | [employer] | MODA | [id number] | | [phone] | | Medica | | MEDICAID HMO [...] Person | Self | [birth year] | [address] | | | al/Fam | | 1976 | [phone] | [place] [address] | | | [place] | | | 4 (Home) | | + +--------+ +--------+ + + Advance Directives Patient has advance care planning documents, and code status on file. For more information, please contact:[facility] [place] [address] + + + + + | Code [...]
--- OUTSIDE RECORDS SUMMARY | ~2019-04-17 | XMS | Encounter Summary ---
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 She lives in [place], [place]. Family History: Notable for breast cancer [...] event of any recurrences. Sarina Chan M.D. [facility] / [id number] / [id number] / [id number] / cc: Antony Cowan M.D. [facility], [facility] [address] [place] [address] [address] [place], [place] [id number] signed by Interface, Clinic Licensed Practical Nurse In at 12/12/2005 3:05 AM PDTdocumented in this encounter Plan of Treatment Not on filedocumented as of this encounter Visit Diagnoses Not on filedocumented in this encounter"
--- OUTSIDE RECORDS SUMMARY | ~2019-04-17 | XMS | Clinical Summary ---
Demographics + + + | Address | [address] | | | [place] [address] | + + + | Home Phone | | + + + | Preferred Language | Unknown | + + + | Marital Status | | + + + | Hindu Affiliation | Unknown | + + + | Race | Unknown | + + + | Ethnic Group | Unknown | + + + Author + + + | Author | [facility] | | | and [place] | + + + | Organization | [facility] | | | and [place] [...] [place] | | | | | [address] | | + + + + + | Venkatesh Gomez | ECON | Unknown | | + + + + + Care Team Providers + +------+ + | Care Pull Over Name | Role | Phone | + [...] | JORGE - | | 10/18/ | [id number] | | Sn/AImplanted: Qty: 1 on | c | Hip | ZIMM | | 2027 | 662 | | 11/06/2017 by Bernabe, | | | | | | /N/A | | Ryan Rios MD | | | | | | /[id number] | | | | | | | | 08 | + +--------+--------+ +--------+--------+--------+ | Liner Cocr Dl Mob 40mm D - | Generi | Right: | JORGE - | | 07/25/ | [id number] | | Sn/AImplanted: Qty: 1 on | c | Hip | ZIMM | | 2027 | 462 | | 11/06/2017 by Bernabe, | | | | | | /N/A | | Ryan Rios MD | | | | | | /[id number] | | | | | | | | 0 | + +--------+--------+ +--------+--------+--------+ | Imp Hip Acet Lnr E-Ply | Generi | Right: | JORGE - | | 09/22/ | EP-200 | | [id number] - Sn/AImplanted: Qty: | c | Hip | ZIMM | | 2022 | 146 | | 1 on 11/06/2017 by | | | | | | /N/A | | Ryan Kidd MD | | | | | | /[id number] | | | | | | | [...] MD | | | | | | /[id number] | | | | | | | | 37 | + +--------+--------+ +--------+--------+--------+ | Imp Hip Fem Stem Actis Std | Generi | Right: | JJHCS DEPUY | | 10/24/ | [id number] | | [id number] - Sn/AImplanted: Qty: 1 [...] | [employer] | MODA | [id number] | | [phone] | | Medica | | MEDICAID HMO [...] Person | Self | [birth year] | | [address] [address] | | | al/Fam | | 1976 | [phone] | [place] [address] | | | [place] | | | 4 (Home) | | + +--------+ +--------+ + + Advance Directives Patient has advance care planning documents, and code status on file. For more information, please contact:[facility] [place] [address] + + + + + | Code [...]
--- OUTSIDE RECORDS SUMMARY | ~2019-04-17 | XMS | Clinical Summary ---
Demographics + + + | Address | [address] | | | [place] [address] | + + + | Home Phone | | + + + | Preferred Language | Unknown | + + + | Marital Status | | + + + | Voodoo Affiliation | Unknown | + + + [...] Team Providers + +------+ + | Care Rough Rice Tender Name | Role | Phone | + +------+ + PCP | Unavailable | + +------+ + Source Comments SAMUEL is fully live on both [facility] and [facility] Allergies Not on File Medications + + [...] | BCBS | xxxxxxxxxxx | 09/26/19 | [phone] | [address] | PPO | | SHIELD | OUT OF | x | 06-Pre | 8 | [address] | | | | STATE | | sent | | [place], | | | | | | | | [place] | | | | | | | | [address] | | + +--------+ +--------+ + +------+ + +--------+ +--------+ + + | Guarantor Name | Accoun | Relation to | Date | Phone | Billing Address | | | t Type | Patient | of | | | | | | | | | | + +--------+ +--------+ + + | Ethel Gomez | Person | Self | [birth year] | | [address] | | | al/Fam | | 1976 | [phone] | [place] [address] | | | elmer | | | 4 (Home) | | | | | | | [phone] | | | | | | | [phone] | | | | | | | (Work) | | + +--------+ +--------+ + +
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
== END ==
LOC: ED 03:21
PROC: 0HQEXZZ Repair Left Lower Arm Skin, External Approach (ICD-10-PCS; principal; 2019-04-17)
DX: S51.812A Laceration without foreign body of left forearm, initial encounter (principal); I10 Essential (primary) hypertension; F17.200 Nicotine dependence, unspecified, uncomplicated; Z79.899 Other long term (current) drug therapy; W26.0XXA Contact with knife, initial encounter
CPT/HCPCS: 12002; 99283-25

== ENCOUNTER 2019-11-19 18:30 | Emergency (ER) | payer OTHER ==
[~2019-11-19] VITALS: Ht 162.6 cm; Wt 62.1 kg
--- OUTSIDE RECORDS SUMMARY | ~2019-11-19 | XMS | Encounter Summary ---
Demographics + + + | Address | [address] | | | [place] [address] | + + + | Home Phone | | + + + | Preferred Language | Unknown | + + + | Marital Status | | + + + | Denominational Affiliation | Unknown | + + + | Race | Unknown | + + + | Ethnic Group | Unknown | + + + Author + + + | Author | [facility] [place] | | | and [place] | + + + | Organization | [facility] | | | and [place] | + + + | Address | Unknown | + + + | Phone | Unavailable | + + + Support + + +---------+ + | Name | Relationship | Address | Phone | + + +---------+ + | Venkatesh Gomez | ECON | Unknown | | + + +---------+ + Care Team Providers + +------+ + | Care Commercial Attache Name | Role | Phone | + +------+ + | Yoandy Resendez MD | PCP | | + +------+ + Encounter Details +--------+ + + + + | Date | Type | Department | Care Team | Description | +--------+ + + + + | 11/07/ | Imaging | [facility] | Provider, | | | 2018 | Exam | [facility] | [address] | | | | | IMAGING [address] | [address] | | | | | [place] | [place] [address] | | | | | [place] [address] | | | | | | [phone] | | | +--------+ + + + + Social History + +-------+ +--------+------+ | Tobacco Use | Types | Packs/Day | Years | Date | | | | | Used | | + +-------+ +--------+------+ | Current Every Day | | | | | | Smoker | | | | | + +-------+ +--------+------+ + + +---------+ + | Alcohol Use | Drinks/Week | oz/Week | Comments | + + +---------+ + | Yes | | | alcohol abuse | + + +---------+ + + + + | Sex Assigned at | Date Recorded | | | | + + + | Not on file | | + + + + + + + | Job Start Date | Occupation | Industry | + + + + | Not on file | Not on file | Not on file | + + + + + + + + | Travel History | Travel Start | Travel End | + + + + + + | No recent travel history available. | + + documented as of this encounter Plan of Treatment Not on filedocumented as of this encounter Procedures + +--------+ + + + | Procedure Name | Priori | Date/Time | Associated Diagnosis | Comments | | | ty | | | | + +--------+ + + + | CT ABDOMEN PELVIS W | Routin | 11/05/2017 | | Results for this | | CONTRAST | e | 7:05 AM | | procedure are in the | | | | PDT | | results section. | + +--------+ + + + documented in this encounter Results CT Abdomen Pelvis w Contrast (11/05/2017 7:05 AM PDT) + + | Specimen | + + | | + + + + + | Narrative | Performed At | + + + | External films for comparison only | [facility] | | | | | No results will be in the chart. | | + + + + +---------+ + + | Performing | Address | City/State/Zipcode | Phone Number | | Organization | | | | + +---------+ + + | [facility] | | | | + +---------+ + + documented in this encounter Visit Diagnoses Not on filedocumented in this encounter"
--- OUTSIDE RECORDS SUMMARY | ~2019-11-19 | XMS | Encounter Summary ---
Demographics + + + | Address | [address] | | | [place] [address] | + + + | Home Phone | | + + + | Preferred Language | Unknown | + + + | Marital Status | | + + + | Anabaptism Affiliation | Unknown | + + + | Race | Unknown | + + + | Ethnic Group | Unknown | + + + Author + + + | Author | [facility] [place] | | | and [place] | + + + | Organization | [facility] [place] | | | and [place] | [...] Team Providers + +------+ + | Care Research Coordinator Name | Role | Phone | + +------+ + | Yoandy Resendez MD | PCP | | + +------+ + Encounter Details +--------+ + + + + | Date | Type | Department | Care Team | Description | +--------+ + + + + | 09/24/ | Hospital | [facility] | Leonard Jean Baptiste | Right hip pain; | | 2019 | Encounter | [facility] | [address] | Status post total | | | | [address] | [address] [place] | hip replacement, | | | | [place] | [place] [address] | right | | | | [address] | [phone] | | | | | [phone] | | | +--------+ + + + + Social History + +-------+ +--------+------+ | Tobacco Use | Types | Packs/Day | Years | Date | | | | | Used | | + +-------+ +--------+------+ | Current Every Day | | | | | | Smoker | | | | | + +-------+ +--------+------+ + +---+---+---+ | Smokeless Tobacco: | | | | | Current User | | | | + +---+---+---+ + + +---------+ + | Alcohol Use [...] + + documented as of this encounter Functional Status + + + + | Functional Status | Response | Date of Assessment | + + + + | Are you deaf or do you have serious | No | 11/11/2017 | | difficulty hearing? | | | + + + + | Are you blind or do you have serious | No | 11/11/2017 | | difficulty seeing, even when wearing | | | | glasses? | | | + + + + | Do you have serious difficulty walking or | No | 11/11/2017 | | climbing stairs? (5 years old or older) | | | + + + + | Do you have difficulty dressing or bathing? | No | 11/11/2017 | | (5 years old or older) | | | + + + + | Because of a physical, mental, or emotional | No | 11/11/2017 | | condition, do you have difficulty doing | | | | errands alone such as visiting a doctor's | | | | office or shopping? [15 years old or | | | | older)] | | | + + + + + + + + | Cognitive Status | Response | Date of Assessment | + + + + | Because of a physical, mental, or emotional | No | 11/11/2017 | | condition, do you have serious difficulty | | | | concentrating, remembering, or making | | | | decisions? (5 years old or older) | | | + + + + documented as of this encounter Medications at Time of Discharge + + + +---------+ + + | Medication | Sig | Dispensed | Refills | Start | End Date | | | | | | Date | | + + + +---------+ + + | acetaminophen | Take 2 tablets by | 120 | 1 | 11/12/19 | | | (TYLENOL) 325 mg | mouth every 4 hours | tablet | | 18 | | | tablet | as needed for Pain | | | | | | | or Fever. | | | | | + + + +---------+ + + | cefadroxil | TAKE 1 TABLE IN THE | 2 | 0 | 12/30/19 | | | (DURICEF) 500 mg | MORNING AND 1 TABLET | capsule | | 18 | | | capsule | IN THE EVENING. (12 | | | | | | | HOURS APART | | | | | + + + +---------+ + + | MELOXICAM PO | Take by mouth. | | 0 | | | + + + +---------+ + + | omeprazole | Take 10 mg by mouth | | 0 | | | | (PRILOSEC) 10 mg | every morning | | | | | | capsule | (before breakfast). | | | | | + + + +---------+ + + | traMADol (ULTRAM) | Take 1 tablet by | 50 | 0 | 09/25/19 | | | 50 mg tablet | mouth every 6 hours | tablet | | 20 | 0 | | | as needed for Pain. | | | | | + + + +---------+ + + documented as of this encounter Plan of Treatment Not on filedocumented as of this encounter Procedures + +--------+ + + + | Procedure Name | Priori | Date/Time | Associated Diagnosis | Comments | | | ty | | | | + +--------+ + + + | XR HIP RIGHT 2-3 | Routin | 09/25/2019 | Right hip pain | Results for this | | VIEWS | e | 1:20 PM | Status post total | procedure are in the | | | | PDT | hip replacement, | results section. | | | | | right | | + +--------+ + + + documented in this encounter Results XR Hip Right 2-3 Views (09/25/2019 1:20 PM PDT) + + | Specimen | + + | | + + + + + | Impressions | Performed At | + + + | Intact right hip arthroplasty. Dictated and Signed by: Venkatesh Wheeler [facility] | | MD Justin Electronically signed: 09/25/2019 1:53 PM | | + + + + + + | Narrative | Performed At | + + + | XR HIP RIGHT 2-3 VIEWS 09/25/2019 1:20 PM HISTORY: RIGHT HIP | [facility] | | PAIN- H/O OF RIGHT TOTAL HIP ARTHROPLASTY DOS 11/06/17. COMPARISON: | | | Multiple priors. FINDINGS: There is hardware for right hip | | | arthroplasty that is intact with no evidence for loosening. Bone | | | mineralization is normal. Visualized pelvis demonstrates no acute | | | findings. Soft tissue structures are unremarkable. | | + + + + + | Procedure Note | + + | Caleb, Rad Results In - 09/25/2019 1:57 PM PDT XR HIP RIGHT 2-3 VIEWS 09/25/2019 1:20 | | PMHISTORY: RIGHT HIP PAIN- H/O OF RIGHT TOTAL HIP ARTHROPLASTY DOS 11/06/17.COMPARISON: | | Multiple priors.FINDINGS:There is hardware for right hip arthroplasty that is intact | | with no evidence forloosening. Bone mineralization is normal. Visualized pelvis | | demonstrates noacute findings. Soft tissue structures are unremarkable.IMPRESSION: | | Intact right hip arthroplasty. Dictated and Signed by: Venkatesh Anderson MD Electronically | | signed: 09/25/2019 1:53 PM | |There is hardware for right hip arthroplasty that is intact with no evidence for | |loosening. Bone mineralization is normal. Visualized pelvis demonstrates no | |acute findings. Soft tissue structures are unremarkable. | | | |IMPRESSION: | |Intact right hip arthroplasty. | | | |Dictated and Signed by: Venkatesh Anderson MD | | Electronically signed: 09/25/2019 1:53 PM | + + + +---------+ + + | Performing | Address | City/State/Zipcode | Phone Number | | Organization | | | | + +---------+ + + | [facility] | | | | + +---------+ + + documented in this encounter Visit Diagnoses + + | Diagnosis | + + | Right hip pain Pain in joint, pelvic region and thigh | + + | Status post total hip replacement, right | + + documented in this encounter"
--- OUTSIDE RECORDS SUMMARY | ~2019-11-19 | XMS | Encounter Summary ---
Demographics + + + | Address | [address] | | | [place] [address] | + + + | Home Phone | | + + + | Preferred Language | Unknown | + + + | Marital Status | | + + + | Orthodox Affiliation | Unknown | + + + | Race | Unknown | + + + | Ethnic Group | Unknown | + + + Author + + + | Author | [facility] [place] | | | and [place] | + + + | Organization | [facility] | | | and [place] [...] Team Providers + +------+ + | Care Patron Attendant Name | Role | Phone | + [...] | | [address] | [place] [address] | | | | | [place] [address] | | | | | | [phone] | | | +--------+ + + + [...] XR HIP RIGHT 2-3 | Routin | 11/05/2017 | | Results for this | | VIEWS | e | 6:30 AM | | procedure are in the | | | | PDT | | results section. | + +--------+ + + + documented in this encounter Results XR Hip Right 2-3 Views (11/05/2017 6:30 AM PDT) + + | Specimen | [...]
--- OUTSIDE RECORDS SUMMARY | ~2019-11-19 | XMS | Encounter Summary ---
Demographics + + + | Address | [address] | | | [place] [address] | + + + | Home Phone | | + + + | Preferred Language | Unknown | + + + | Marital Status | | + + + | Jehovah'S Witness Affiliation | Unknown | + + + | Race | White | + + + | Ethnic Group | Not or | + + + Author + + + | Author | [facility] | + + + | Organization | [facility] | + + + | Address | Unknown | + + + | Phone | Unavailable | + + + Support + + +---------+ + | Name | Relationship | Address | Phone | + + +---------+ + | Missy Quinonez | ECON | Unknown | | + + +---------+ + Care Team Providers + +------+ + | Care Otr Driver Name | Role | Phone | + +------+ + | Dina Alvarez MD | PCP | | + +------+ + Reason for Visit + + + | Reason | Comments | + + + | Consultation | endometriosis surgery 2004/ 2004 Pt. had a | | | hysterectomy Pt. has left sided pelvis pain | + + + Encounter Details +--------+---------+ + + + | Date | Type | Department | Care Team | Description | +--------+---------+ + + + | 03/18/ | Office | [facility] | Anthony Hoff MD | Endometriosis | | 2006 | Visit | [facility] | [address] | (Primary Dx) | | | | [facility] [place], | | | | | [address] | [place] [address] | | | | | [facility], [facility] floor | [phone] | | | | | [place], [place] | | | | | | [address] | | | | | | [phone] | | | +--------+---------+ + + + Social History + +-------+ +--------+------+ | Tobacco Use | Types | Packs/Day | Years | Date | | | | | Used | | + +-------+ +--------+------+ | Never Assessed | | | | | + +-------+ +--------+------+ + + + | Sex Assigned at [...] + + documented as of this encounter Last Filed Vital Signs + + + + + | Vital Sign | Reading | Time Taken | Comments | + + + + + | Blood Pressure | 92/58 | 03/18/2006 11:10 AM | | | | | PDT | | + + + + + | Pulse | - | - | | + + + + + | Temperature | - | - | | + + + + + | Respiratory Rate | - | - | | + + + + + | Oxygen Saturation | - | - | | + + + + + | Inhaled Oxygen | - | - | | | Concentration | | | | + + + + + | Weight | 54.9 kg (121 lb) | 03/18/2006 11:10 AM | | | | | PDT | | + + + + + | Height | 165.1 cm (5' 5") | 03/18/2006 11:10 AM | | | | | PDT | | + + + + + | Body Mass Index | 20.14 | 03/18/2006 11:10 AM | | | | | PDT | | + + + + + documented in this encounter Anthony Reeves - 03/18/2006 11:50 AM PDT NEW VICE PRESIDENT OF HUMAN RESOURCES VISIT Ethel Gomez is a 30 y.o. female T1 P0 SAB1 TAB1 L1 Mult0 Ect0 who presents for ev aluation of pelvic pain and history of endometriosis. In 01/29 had a laparoscopy for pelvic pain. In the right cul-de-sac, endometriosis was found . SHe experienced little improvement in pain with the treatment of this area of endometriosi s. In 05/01 she was advised to undergo a TVH for adenomyosis. This diagnosis was confirmed by pathology, according to the patient. She has not had a significant improvement in pain since that surgery. This was performed by Dr. Delaney in [place]. She has had pain for 10 years. Initially her pain was mostly dysmenorrhea and dyspareunia. It then became constant, which is what is happening currently. Now, pain is worse with sex a nd for a short period of time afterwards. No increase with bowel movement or urination. Wors e in last 2 months. Radiates down left leg. She was placed on combined oral contraceptives in past with no response. She is taking 2 vi codin tablets daily to manage. She is unsure if is still ovulating. DMPA in past caused some depression, but she understands the rationale for elimination of s timulation of endometriosis tissue as a therapeutic goal. Referring Provider: Dina Alvarez Primary Care Provider: DINA ALVAREZ MD, MD No past medical history on file. Past Surgical History: HX BREAST AUGMENTATION 1982 HX PELVIC LAPAROSCOPY 2004 Comment: cautery of endo HX TOTAL VAGINAL HYSTERECTOMY 2004 Comment: adenomyosis No family history on file GYNECOLOGIC HISTORY: No LMP date recorded. Reason: Hysterectomy. Age at Menarche: 10 years old. Menses: N/A Menopause: N/A Sexual Activity: Patient is sexually active with a male partner. She has not had a new sex ual partner in the last year. Number of lifetime sexual partners is more than 5. Contraception: nothing. Pap Smear History: Date of last pap smear was uncertain. Positive history of abnormal pap smears. Sexually Transmitted Infections: No history. Sexual/Physical Abuse: No history of abuse Obstetric History: Number of NSVDs is 1. Number of C-Sections is 0. Current outpatient prescriptions: RESTORIL OR 1 tab per bed hour pm VICODIN OR 360mg 1-2 tab every 4 hours prn DEPO-PROVERA 150 MG/ML IM SYRINGE inject 1 milliliter (150mg) by intramuscular route every 3 months MEDROXYPROGESTERONE (CONTRACEPTIVE) 150 MG/ML IM SUSP None Entered ALLERGIES: Review of patient's allergies indicates not on file. SOCIAL HISTORY AND HABITS: Patient is , and lives with partner and with children. 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 She does exercise. She drinks 1 alcoholic beverages per day. She does not use tobacco. She does not use illicit drugs. REVIEW OF SYSTEMS: Abdominal or pelvic pain: yes as above Constipation / diarrhea / blood in stool: no Heartburn / trouble swallowing: no Urine leakage: no Vaginal / vulvar itching, irritation, discharge: no Breast lumps / nipple discharge: no Chest pain: no Shortness of breath: no Pain with sexual intercourse: no Visual / hearing problems: no Weight loss, fever, chills sweats: no Headaches- migraine or tension: no Numbness / tingling / weakness of extremities: no Joint / muscle pain: no Depression, anxiety, irritability, trouble sleeping: no Hot flashes / vaginal dryness: no Other concerns: none PHYSICAL EXAM: BP 92/58 | Ht 5' 5" (1.65m) | Wt 121 lbs (54.9kg) | LMP Hysterectomy Body Mass Index is 20.14 kg/(m^2). GENERAL PHYSICAL EXAM: General: This is a well appearing, white female in no apparent distress. Skin: Warm, dry and no rashes or lesions. HEENT: Normocephalic. Sclera anicteric. Extraocular muscles intact. Neck: Supple. No thyromegaly. No cervical or supraclavicular lymphadenopathy. Heart: Regular rate. No murmur, gallops, rubs. Lungs: Clear to auscultation bilaterally. Abdomen: Soft. Non-tender. No mass. No hepatosplenomegaly. Musculoskeletal: Normal. Extremities: No edema. No inguinal lymphadenopathy. Neurological: Normal PELVIC EXAM: External Genitalia: Normal contour. No lesions. Urethral Meatus: Normal in appearance. Vagina: Well estrogenized. Well rugated. No lesions. Cervix: absent Uterus: absent Adnexa/Parametria: No mass. Tender in left lower quadrant. No parametrial thickening. Rectum: No rectal or posterior cul de sac mass. Anus and Perineum: No lesions. Other Exam Findings: None. IN OFFICE LABORATORY FINDINGS: N/A ASSESSMENT: This is a 30 y.o. female T1 P0 SAB1 TAB1 L1 Mult0 Ect0 who presents toda y for pelvic pain with a history of endometriosis. Because of the failure to respond to surgery in the past, I strongly recommended avoiding s urgery. Depo Provera ordered. I also reviewed the distinct possibility of other sources of pain (gut, bladder, abdominal wall, etc.) Patient was agreeable to a trial of medical management. Will return to clinic in 2 months to review response. PLAN: (See orders smartset) Orders Placed This Encounter: RESTORIL OR VICODIN OR DEPO-PROVERA 150 MG/ML IM SYRINGE MEDROXYPROGESTERONE (CONTRACEPTIVE) 150 MG/ML IM SUSP. documented in this encounte r Plan of Treatment Not on filedocumented as of this encounter Visit Diagnoses + + | Diagnosis | + + | Endometriosis - Primary Endometriosis, site unspecified | + + documented in this encounter
--- OUTSIDE RECORDS SUMMARY | ~2019-11-19 | XMS | Encounter Summary ---
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 [facility] | | | | | | [facility] | | | | | | CENTER - | | | | | | LABORATORY | | + + + + + + | Globulin | 3.7 | 2.1 - 3.8 g/dL | [facility] | | | | | | [facility] | | | | | | [facility] | | | | | | CENTER - | | | | | | LABORATORY | | + + + + + + | Albumin/Ludy | 0.9 | 0.8 - 2.0 | [facility] | | | bulin Ratio | | | [facility] | | | | | | [facility] | | | | | | CENTER - | | | | | | LABORATORY | | + + + + + + | BUN/Creatin | 10.2 | | [facility] | | | ine Ratio | | | [facility] | | | | | | [facility] | | | | | | CENTER - | | | | | | LABORATORY | | + + + + + + + + | Specimen | + + | Blood | + + + + + + + | Performing | Address | City/State/Zipcode | Phone Number | | Organization | | | | + + + + + | [facility] | [address] | [place] | [phone] | | [facility] | | [address] | | | - LABORATORY | | | | + + + + + Extra Lavender Top Tube (11/09/2017 6:29 AM PDT) + +-------+ + + + | Component | Value | Ref Range | Performed | Pathologist | | | | | At | Signature | + +-------+ + + + | Extra | Done | | [facility] | | | Lavender | | | [facility] | | | Top Tube | | | MEDICAL | | | | | | CENTER - | | | | | | LABORATORY | | + +-------+ + + + + + | Specimen | + + | Blood | + + + + + + + | Performing | Address | City/State/Zipcode | Phone Number | | Organization | | | | + + + + + | [facility] | [address] | [place] | [phone] | | [facility] | | [address] | | | - LABORATORY | | | | + + + + + Phosphorus (11/09/2017 6:29 AM PDT) + +-------+ + + + | Component | Value | Ref Range | Performed | Pathologist | | | | | At | Signature | + +-------+ + + + | Phosphorus | 3.5 | 2.5 - 4.6 mg/dL | [facility] | | | | | | [facility] | | | | | | MEDICAL | | | | | | CENTER - | | | | | | LABORATORY | | + +-------+ + + + + + | Specimen | + + | Blood | + + + + + + + | Performing | Address | City/State/Zipcode | Phone Number | | Organization | | | | + + + + + | [facility] | [address] | [place] | [phone] | | [facility] | | [address] | | | - LABORATORY | | | | + + + + + Magnesium (11/09/2017 6:29 AM PDT) + +-------+ + + + | Component | Value | Ref Range | Performed | Pathologist | | | | | At | Signature | + +-------+ + + + | Magnesium | 1.9 | 1.8 - 2.5 mg/dL | [facility] | | | | | | [facility] | | | | | | MEDICAL | | | | | | CENTER - | | | | | | LABORATORY | | + +-------+ + + + + + | Specimen | + + | Blood | + + + + + + + | Performing | Address | City/State/Zipcode | Phone Number | | Organization | | | | + + + + + | [facility] | [address] | [place] | [phone] | | [facility] | | [address] | | | - LABORATORY | | | | + + + + + Comprehensive Metabolic Panel (11/09/2017 6:29 AM PDT) + + + + + + | Component | Value | Ref Range | Performed | Pathologist | | | | | At | Signature | + + + + + + | Na | 133 (L) | 136 - 149 | [facility] | | | | | mmol/L | [facility] | | | | | | MEDICAL | | | | | | CENTER - | | | | | | LABORATORY | | + + + + + + | K | 3.1 (L) | 3.5 - 5.1 | [facility] | | | | | mmol/L | [facility] | | | | | | MEDICAL | | | | | | CENTER - | | | | | | LABORATORY | | + + + + + + | Cl | 97 (L) | 98 - 109 mmol/L | [facility] | | | | | | [facility] | | | | | | MEDICAL | | | | | | CENTER - | | | | | | LABORATORY | | + + + + + + | CO2 | 28 | 24 - 31 mmol/L | [facility] | | | | | | [facility] | | | | | | MEDICAL | | | | | | CENTER - | | | | | | LABORATORY | | + + + + + + | Anion Gap | 8 | 3 - 16 mmol/L | [facility] | | | | | | [facility] | | | | | | MEDICAL | | | | | | CENTER - | | | | | | LABORATORY | | + + + + + + | Glucose | 114 (H) | 70 - 109 mg/dL | [facility] | | | | | | [facility] | | | | | | MEDICAL | | | | | | CENTER - | | | | | | LABORATORY | | + + + + + + | BUN | 8 | 7 - 18 mg/dL | [facility] | | | | | | [facility] | | | | | | [facility]ICAL | | | | | | CENTER - | | | | | | LABORATORY | | + + + + + + | Creatinine | 0.51 (L) | 0.60 - 1.30 | [facility] | | | | | mg/dL | [facility] | | | | | | MEDICAL | | | | | | CENTER - | | | | | | LABORATORY | | + + + + + + | eGFR if not | >60Comment: GLOMERULAR | >=60 | [facility] | | | | FILTRATION | mL/min/1.73m2 | [facility] | | | MONEGASQUE | RATE,ESTIMATED | | MEDICAL | | | | mL/min/1.75k8Pamw than | | CENTER - | | | | 60 Chronic kidney | | LABORATORY | | | | disease,if found over a | | | | | | 3-month period.Less than | | | | | | 15 Kidney failureFor | | | | | | | | | | | | Americans,multiply the | | | | | | calculated GFR by 1.21. | | | | | | | | | | + + + + + + | Calcium | 9.4 | 8.3 - 10.5 | [facility] | | | | | mg/dL | [facility] | | [facility] | | | [facility] | | | | | | C[facility] - | | | | | | LABORATORY | | + + + + + + | Albumin | 3.8 | 3.2 - 5.0 g/dL | [facility] | | | | | | [facility] | | | | | | MEDICAL | | | | | | CENTER - | | | | | | LABORATORY | | + + + + + + | Bilirubin | 0.7 | 0.1 - 1.5 mg/dL | [facility] | | | Total | | | [facility] | | | | | | MEDICAL | | | | | | CENTER - | | | | | | LABORATORY | | + + + + + + | Total | 7.5 | 6.0 - 7.8 g/dL | [facility] | | | Protein | | | [facility] | | | | | | MEDICAL | | | | | | CENTER - | | | | | | LABORATORY | | + + + + + + | AST | 50 (H) | 10 - 42 U/L | [facility] | | | | | | [facility] | | | | | | MEDICAL | | | | | | CENTER - | | | | | | LABORATORY | | + + + + + + | ALT | 30 | 6 - 45 U/L | [facility] | | | | | | [facility] | | | | | | MEDICAL | | | | | | CENTER - | | | | | | LABORATORY | | + + + + + + | Alkaline | 98 | 40 - 110 U/L | [facility] | | | Phosphatase | | | [facility] | | | | | | MEDICAL | | | | | | CENTER - | | | | | | LABORATORY | | + + + + + + | Globulin | 3.7 | 2.1 - 3.8 g/dL | [facility] | | | | | | [facility] | | | | | | MEDICAL | | | | | | CENTER - | | | | | | LABORATORY | | + + + + + + | Albumin/Ludy | 1.0 | 0.8 - 2.0 | [facility] | | | bulin Ratio | | | [facility] | | | | | | MEDICAL | | | | | | CENTER - | | | | | | LABORATORY | | + + + + + + | BUN/Creatin | 15.7 | | [facility] | | | ine Ratio | | | [facility] | | | | | | MEDICAL | | | | | | CENTER - | | | | | | LABORATORY | | + + + + + + + + | Specimen | + + | Blood | + + + + + + + | Performing | Address | City/State/Zipcode | Phone Number | | Organization | | | | + + + + + | [facility] | [address] | [place] | [phone] | | [facility] | | [address] | | | - LABORATORY | | | | + + + + + Phosphorus (11/08/2017 5:23 AM PDT) + +---------+ + + + | Component | Value | Ref Range | Performed | Pathologist | | | | | At | Signature | + +---------+ + + + | Phosphorus | 1.2 (L) | 2.5 - 4.6 mg/dL | [facility] | | | | | | [facility] | | | | | [facility] | | | | | | C[facility] - | | | | | | LABORATORY | | + +---------+ + + + + + | Specimen | + + | Blood | + + + + + + + | Performing | Address | City/State/Zipcode | Phone Number | | Organization | | | | + + + + + | [facility] | [address] | [place] | [phone] | | [facility] | | [address] | | | - LABORATORY | | | | + + + + + Magnesium (11/08/2017 5:23 AM PDT) + +---------+ + + + | Component | Value | Ref Range | Performed | Pathologist | | | | | At | Signature | + +---------+ + + + | Magnesium | 1.5 (L) | 1.8 - 2.5 mg/dL | [facility] | | | | | | [facility] | | | | | | MEDICAL | | | | | | CENTER - | | | | | | LABORATORY | | + +---------+ + + + + + | Specimen | + + | Blood | + + + + + + + | Performing | Address | City/State/Zipcode | Phone Number | | Organization | | | | + + + + + | [facility] | [address] | [place] | [phone] | | [facility] | | [address] | | | - LABORATORY | | | | + + + + + TSH (11/08/2017 5:23 AM PDT) + + + + + + | Component | Value | Ref Range | Performed | Pathologist | | | | | At | Signature | + + + + + + | TSH | 2.58Comment: This is a | 0.45 - 5.33 | [facility] | | | | third generation TSH | uIU/mL | [facility] | | | | test. | | MEDICAL | | | | | | CENTER - | | | | | | LABORATORY | | + + + + + + + + | Specimen | + + | Blood | + + + + + + + | Performing | Address | City/State/Zipcode | Phone Number | | Organization | | | | + + + + + | [facility] | [address] | [place] | [phone] | | [facility] | | [address] | | | - LABORATORY | | | | + + + + + Ferritin (11/08/2017 5:23 AM PDT) + +---------+ + + + | Component | Value | Ref Range | Performed | Pathologist | | | | | At | Signature | + +---------+ + + + | FERRITIN | 453 (H) | 11 - 307 ng/mL | [facility] | | | | | [facility] | | | | | | MEDICAL | | | | | | CENTER - | | | | | | LABORATORY | | + +---------+ + + + + + | Specimen | + + | Blood | + + + + + + + | Performing | Address | City/State/Zipcode | Phone Number | | Organization | | | | + + + + + | [facility] | [address] | [place] | [phone] | | [facility] | | [address] | | | - LABORATORY | | | | + + + + + Iron and Transferrin (11/08/2017 5:23 AM PDT) + + + + + + | Component | Value | Ref Range | Performed | Pathologist | | | | | At | Signature | + + + + + + | Iron | 13 (L) | 40 - 150 ug/dL | [facility] | | | | | | [facility] | | | | | | MEDICAL | | | | | | CENTER - | | | | | | LABORATORY | | + + + + + + | TRANSFERRIN | 182.2 (L) | 240.0 - 480.0 | [facility] | | | | | mg/dL | [facility] | | | | | | MEDICAL | | | | | | CENTER - | | | | | | LABORATORY | | + + + + + + | TIBC | 255 | 235 - 425 ug/dL | [facility] | | | | | | [facility] | | | | | | MEDICAL | | | | | | CENTER - | | | | | | LABORATORY | | + + + + + + | % | 5.1 (L) | 20.0 - 55.0 % | [facility] | | | SATURATION | | | [facility] | | | | | | MEDICAL | | | | | | CENTER - | | | | | | LABORATORY | | + + + + + + + + | Specimen | + + | Blood | + + + + + + + | Performing | Address | City/State/Zipcode | Phone Number | | Organization | | | | + + + + + | [facility] | [address] | [place] | [phone] | | [facility] | | [address] | | | - LABORATORY | | | | + + + + + CBC with Differential (11/08/2017 5:23 AM PDT) + + + + + + | Component | Value | Ref Range | Performed | Pathologist | | | | | At | Signature | + + + + + + | WBC | 7.4 | 4.0 - 11.0 K/uL | [facility] | | | | | | [facility] | | | | | | MEDICAL | | | | | | CENTER - | | | | | | LABORATORY | | + + + + + + | RBC | 2.87 (L) | 3.70 - 5.20 | [facility] | | | | | M/uL | [facility] | | | | | | MEDICAL | | | | | | CENTER - | | | | | | LABORATORY | | + + + + + + | Hemoglobin | 10.1 (L) | 11.5 - 16.0 | [facility] | | | | | g/dL | [facility] | | | | | | MEDICAL | | | | | | CENTER - | | | | | | LABORATORY | | + + + + + + | Hematocrit | 29.4 (L) | 34.0 - 47.0 % | [facility] | | | | | | [facility] | | | | | | MEDICAL | | | | | | CENTER - | | | | | | LABORATORY | | + + + + + + | MCV | 102.1 (H) | 83.0 - 101.0 fL | [facility] | | | | | | [facility] | | | | | | MEDICAL | | | | | | CENTER - | | | | | | LABORATORY | | + + + + + + | MCH | 35.0 | 28.0 - 35.0 pg | [facility] | | | | | | [facility] | | | | | | MEDICAL | | | | | | CENTER - | | | | | | LABORATORY | | + + + + + + | MCHC | 34.3 | 32.0 - 36.0 | [facility] | | | | | g/dL | [facility] | | | | | | MEDICAL | | | | | | CENTER - | | | | | | LABORATORY | | + + + + + + | RDW-CV | 15.1 (H) | <15.0 % | [facility] | | | | | | [facility] | | | | | | MEDICAL | | | | | | CENTER - | | | | | | LABORATORY | | + + + + + + | Platelet | 105 (L) | 140 - 440 K/uL | [facility] | | | Count | | | [facility] | | | | | | MEDICAL | | | | | | CENTER - | | | | | | LABORATORY | | + + + + + + | MPV | 8.8 | fL | [facility] | | | | | | [facility] | | | | | | MEDICAL | | | | | | CENTER - | | | | | | LABORATORY | | + + + + + + | % | 72.3 | 45.0 - 82.0 % | [facility] | | | Neutrophils | | | [facility] | | | | | | MEDICAL | | | | | | CENTER - | | | | | | LABORATORY | | + + + + + + | % | 18.4 (L) | 20.0 - 45.0 % | [facility] | | | Lymphocytes | | | [facility] | | | | | | MEDICAL | | | | | | CENTER - | | | | | | LABORATORY | | + + + + + + | % Monocytes | 8.4 | 4.0 - 12.0 % | [facility] | | | | | | [facility] | | | | | | MEDICAL | | | | | | CENTER - | | | | | | LABORATORY | | + + + + + + | % | 0.7 | 0.0 - 5.0 % | [facility] | | | Eosinophils | | | [facility] | | | | | | MEDICAL | | | | | | CENTER - | | | | | | LABORATORY | | + + + + + + | % Basophils | 0.2 | 0.0 - 1.0 % | [facility] | | | | | | [facility] | | | | | | MEDICAL | | | | | | CENTER - | | | | | | LABORATORY | | + + + + + + | Absolute | 5.40 | 1.80 - 8.50 | [facility] | | | Neutrophils | | K/uL | [facility] | | | | | | MEDICAL | | | | | | CENTER - | | | | | | LABORATORY | | + + + + + + | Absolute | 1.40 | 0.60 - 3.20 | [facility] | | | Lymphocytes | | K/uL | [facility] | | | | | | MEDICAL | | | | | | CENTER - | | | | | | LABORATORY | | + + + + + + | Absolute | 0.60 | 0.00 - 1.00 | [facility] | | | Monocytes | | K/uL | [facility] | | | | | | MEDICAL | | | | | | CENTER - | | | | | | LABORATORY | | + + + + + + | Absolute | 0.10 | 0.00 - 0.40 | [facility] | | | Eosinophils | | K/uL | [facility] | | | | | | MEDICAL | | | | | | CENTER - | | | | | | LABORATORY | | + + + + + + | Absolute | 0.00 | 0.00 - 0.10 | [facility] | | | Basophils | | K/uL | [facility] | | | | | | MEDICAL | | | | | | CENTER - | | | | | | LABORATORY | | + + + + + + + + | Specimen | + + | Blood | + + + + + + + | Performing | Address | City/State/Zipcode | Phone Number | | Organization | | | | + + + + + | [facility] | [address] | [place] | [phone] | | [facility] | | [address] | | | - LABORATORY | | | | + + + + + Comprehensive Metabolic Panel (11/08/2017 5:23 AM PDT) + + + + + + | Component | Value | Ref Range | Performed | Pathologist | | | | | At | Signature | + + + + + + | Na | 136 | 136 - 149 | [facility] | | | | | mmol/L | [facility] | | | | | | MEDICAL | | | | | | CENTER - | | | | | | LABORATORY | | + + + + + + | K | 3.0 (L) | 3.5 - 5.1 | [facility] | | | | | mmol/L | [facility] | | | | | | MEDICAL | | | | | | CENTER - | | | | | | LABORATORY | | + + + + + + | Cl | 97 (L) | 98 - 109 mmol/L | [facility] | | | | | | [facility] | | | | | | MEDICAL | | | | | | CENTER - | | | | | | LABORATORY | | + + + + + + | CO2 | 29 | 24 - 31 mmol/L | [facility] | | | | | | [facility] | | | | | | MEDICAL | | | | | | CENTER - | | | | | | LABORATORY | | + + + + + + | Anion Gap | 10 | 3 - 16 mmol/L | [facility] | | | | | | [facility] | | | | | | MEDICAL | | | | | | CENTER - | | | | | | LABORATORY | | + + + + + + | Glucose | 114 (H) | 70 - 109 mg/dL | [facility] | | | | | | [facility] | | | | | | MEDICAL | | | | | | CENTER - | | | | | | LABORATORY | | + + + + + + | BUN | 5 (L) | 7 - 18 mg/dL | [facility] | | | | | | [facility] | | | | | | MEDICAL | | | | | | CENTER - | | | | | | LABORATORY | | + + + + + + | Creatinine | 0.50 (L) | 0.60 - 1.30 | [facility] | | | | | mg/dL | [facility] | | | | | | MEDICAL | | | | | | CENTER - | | | | | | LABORATORY | | + + + + + + | eGFR if not | >60Comment: GLOMERULAR | >=60 | [facility] | | | | FILTRATION | mL/min/1.73m2 | [facility] | | | MONEGASQUE | RATE,ESTIMATED | | MEDICAL | | | | mL/min/1.13c9Valc than | | CENTER - | | | | 60 Chronic kidney | | LABORATORY | | | | disease,if found over a | | | | | | 3-month period.Less than | | | | | | 15 Kidney failureFor | | | | | | | | | | | | Americans,multiply the | | | | | | calculated GFR by 1.21. | | | | | | | | | | + + + + + + | Calcium | 8.7 | 8.3 - 10.5 | [facility] | | | | | mg/dL | [facility] | | | | | | MEDICAL | | | | | | CENTER - | | | | | | LABORATORY | | + + + + + + | Albumin | 3.8 | 3.2 - 5.0 g/dL | [facility] | | | | | | [facility] | | | | | | MEDICAL | | | | | | CENTER - | | | | | | LABORATORY | | + + + + + + | Bilirubin | 0.7 | 0.1 - 1.5 mg/dL | [facility] | | | Total | | | [facility] | | | | | | MEDICAL | | | | | | CENTER - | | | | | | LABORATORY | | + + + + + + | Total | 7.3 | 6.0 - 7.8 g/dL | [facility] | | | Protein | | | [facility] | | | | | | MEDICAL | | | | | | CENTER - | | | | | | LABORATORY | | + + + + + + | AST | 54 (H) | 10 - 42 U/L | [facility] | | | | | | [facility] | | | | | | MEDICAL | | | | | | CENTER - | | | | | | LABORATORY | | + + + + + + | ALT | 29 | 6 - 45 U/L | [facility] | | | | | | [facility] | | | | | | [facility]ICAL | | | | | | CENTER - | | | | | | LABORATORY | | + + + + + + | Alkaline | 93 | 40 - 110 U/L | [facility] | | | Phosphatase | | | [facility] | | | | | | MEDICAL | | | | | | CENTER - | | | | | | LABORATORY | | + + + + + + | Globulin | 3.5 | 2.1 - 3.8 g/dL | [facility] | | | | | | [facility] | | | | | | MEDICAL | | | | | | CENTER - | | | | | | LABORATORY | | + + + + + + | Albumin/Ludy | 1.1 | 0.8 - 2.0 | [facility] | | | bulin Ratio | | | [facility] | | | | | | MEDICAL | | | | | | CENTER - | | | | | | LABORATORY | | + + + + + + | BUN/Creatin | 10.0 | | [facility] | | | ine Ratio | | | [facility] | | | | | | MEDICAL | | | | | | CENTER - | | | | | | LABORATORY | | + + + + + + + + | Specimen | + + | Blood | + + + + + + + | Performing | Address | City/State/Zipcode | Phone Number | | Organization | | | | + + + + + | [facility] | [address] | [place] | [phone] | | [facility] | | [address] | | | - LABORATORY | | | | + + + + + Phosphorus (11/07/2017 5:46 AM PDT) + + + + + + | Component | Value | Ref Range | Performed | Pathologist | | | | | At | Signature | + + + + + + | Phosphorus | 0.9 (LL)Comment: | 2.5 - 4.6 mg/dL | [facility] | | | | Critical Result called | | [facility] | | | | to and read back by William | | [facility] | | | | Luis Armando on 11/07/2017 at | | CENTER - | | | | 6:43 by Gisella Grady | | LABORATORY | | | | [place]. | | | | + + + + + + + + | Specimen | + + | Blood | + + + + + + + | Performing | Address | City/State/Zipcode | Phone Number | | Organization | | | | + + + + + | [facility] | [address] | [place] | [phone] | | [facility] | | [address] | | | - LABORATORY | | | | + + + + + CBC with Differential (11/07/2017 5:46 AM PDT) + + + + + + | Component | Value | Ref Range | Performed | Pathologist | | | | | At | Signature | + + + + + + | WBC | 5.5 | 4.0 - 11.0 K/uL | [facility] | | | | | | [facility] | | | | | | MEDICAL | | | | | | CENTER - | | | | | | LABORATORY | | + + + + + + | RBC | 3.00 (L) | 3.70 - 5.20 | [facility] | | | | | M/uL | [facility] | | | | | | MEDICAL | | | | | | CENTER - | | | | | | LABORATORY | | + + + + + + | Hemoglobin | 10.0 (L) | 11.5 - 16.0 | [facility] | | | | | g/dL | [facility] | | | | | | MEDICAL | | | | | | CENTER - | | | | | | LABORATORY | | + + + + + + | Hematocrit | 30.3 (L) | 34.0 - 47.0 % | [facility] | | | | | | [facility] | | | | | | MEDICAL | | | | | | CENTER - | | | | | | LABORATORY | | + + + + + + | MCV | 101.0 | 83.0 - 101.0 fL | [facility] | | | | | | [facility] | | | | | | MEDICAL | | | | | | CENTER - | | | | | | LABORATORY | | + + + + + + | MCH | 33.3 | 28.0 - 35.0 pg | [facility] | | | | | | [facility] | | | | | | MEDICAL | | | | | | CENTER - | | | | | | LABORATORY | | + + + + + + | MCHC | 32.9 | 32.0 - 36.0 | [facility] | | | | | g/dL | [facility] | | | | | | [facility] | | | | | | [facility] - | | | | | | LABORATORY | | + + + + + + | RDW-CV | 15.1 (H) | <15.0 % | [facility] | | | | | | [facility] | | | | | | [facility] | | | | [facility] | [facility] - | | | | | | LABORATORY | | + + + + + + | Platelet | 76 (L) | 140 - 440 K/uL | [facility] | | | Count | | | [facility] | | | | | | [facility] | | | | | | [facility] - | | | | | | LABORATORY | | + + + + + + | MPV | 8.4 | fL | [facility] | | | | | | [facility] | | | | | | [facility] | | | | | | [facility] - | | | | | | LABORATORY | | + + + + + + | % | 79.6 | 45.0 - 82.0 % | [facility] | | | Neutrophils | | | [facility] | | | | | | [facility] | | | | | | [facility] - | | | | | | LABORATORY | | + + + + + + | % | 13.3 (L) | 20.0 - 45.0 % | [facility] | | | Lymphocytes | | | [facility] | | | | | | [facility] | | | | | | [facility] - | | | | | | LABORATORY | | + + + + + + | % Monocytes | 6.7 | 4.0 - 12.0 % | [facility] | | | | | | [facility] | | | | | | [facility] | | | | | | [facility] - | | | | | | LABORATORY | | + + + + + + | % | 0.2 | 0.0 - 5.0 % | [facility] | | | Eosinophils | | | [facility] | | | | | | [facility] | | | | | | [facility] - | | | | | | LABORATORY | | + + + + + + | % Basophils | 0.2 | 0.0 - 1.0 % | [facility] | | | | | | [facility] | | | | | | [facility] | | | | | | [facility] - | | | | | | LABORATORY | | + + + + + + | Absolute | 4.40 | 1.80 - 8.50 | [facility] | | | Neutrophils | | K/uL | [facility] | | | | | | [facility] | | | | | | CENTER - | | | | | | LABORATORY | | + + + + + + | Absolute | 0.70 | 0.60 - 3.20 | [facility] | | | Lymphocytes | | K/uL | [facility] | | | | | | [facility] | | | | | | CENTER - | | | | | | LABORATORY | | + + + + + + | Absolute | 0.40 | 0.00 - 1.00 | [facility] | | | Monocytes | | K/uL | [facility] | | | | | | [facility] | | | | | | CENTER - | | | | | | LABORATORY | | + + + + + + | Absolute | 0.00 | 0.00 - 0.40 | [facility] | | | Eosinophils | | K/uL | [facility] | | | | | | [facility] | | | | | | [facility] - | | | | | | LABORATORY | | + + + + + + | Absolute | 0.00 | 0.00 - 0.10 | [facility] | | | Basophils | | K/uL | [facility] | | | | | | [facility] | | | | | | [facility] - | | | | | | LABORATORY | | + + + + + + + + | Specimen | + + | Blood | + + + + + + + | Performing | Address | City/State/Zipcode | Phone Number | | Organization | | | | + + + + + | [facility] | [address] | [place] | [phone] | | [facility] | | [id number] | | | - LABORATORY | | | | + + + + + Comprehensive Metabolic Panel (11/07/2017 5:46 AM PDT) + + + + + + | Component | Value | Ref Range | Performed | Pathologist | | | | | At | Signature | + + + + + + | Na | 134 (L) | 136 - 149 | [facility] | | | | | mmol/L | [facility] | | | | | | [facility] | | | | | | CENTER - | | | | | | LABORATORY | | + + + + + + | K | 3.6 | 3.5 - 5.1 | [facility] | | | | | mmol/L | [facility] | | | | | | [facility] | | | | | | [facility] - | | | | | | LABORATORY | | + + + + + + | Cl | 97 (L) | 98 - 109 mmol/L | [facility] | | | | | | [facility] | | | | | | [facility] | | | | | | [facility] - | | | | | | LABORATORY | | + + + + + + | CO2 | 29 | 24 - 31 mmol/L | [facility] | | | | | | [facility] | | | | | | [facility] | | | | | | [facility] - | | | | | | LABORATORY | | + + + + + + | Anion Gap | 8 | 3 - 16 mmol/L | [facility] | | | | | | [facility] | | | | | | [facility] | | | | | | [facility] - | | | | | | LABORATORY | | + + + + + + | Glucose | 124 (H) | 70 - 109 mg/dL | [facility] | | | | | | [facility] | | | | | | [facility] | | | | | | [facility] - | | | | | | LABORATORY | | + + + + + + | BUN | 4 (L) | 7 - 18 mg/dL | [facility] | | | [facility] | [facility] | | | | [facility] - | | | | | | LAB[facility]ATORY | | + + + + + + | Creatinine | 0.50 (L) | 0.60 - 1.30 | [facility] | | | | | mg/dL | [facility] | | | | | | [facility] | | | | | | [facility] - | | | | | | LABORATORY | | + + + + + + | eGFR if not | >60Comment: GLOMERULAR | >=60 | [facility] | | | | FILTRATION | mL/min/1.73m2 | [facility] | | | MONEGASQUE | RATE,ESTIMATED | | MEDICAL | | | | mL/min/1.00q1Xyer than | | CENTER - | | | | 60 Chronic kidney | | LABORATORY | | | | disease,if found over a | | | | | | 3-month period.Less than | | | | | | 15 Kidney failureFor | | | | | | | | | | | | Americans,multiply the | | | | | | calculated GFR by 1.21. | | | | | | | | | | + + + + + + | Calcium | 8.2 (L) | 8.3 - 10.5 | [facility] | | | | | mg/dL | [facility] | | | | | | MEDICAL | | | | | | CENTER - | | | | | | LABORATORY | | + + + + + + | Albumin | 3.5 | 3.2 - 5.0 g/dL | [facility] | | | | | | [facility] | | | | | | [facility] | | | | | | [facility] - | | | | | | LABORATORY | | + + + + + + | Bilirubin | 0.7 | 0.1 - 1.5 mg/dL | [facility] | | | Total | | | [facility] | | | | | | [facility] | | | | | | [facility] - | | | | | | LABORATORY | | + + + + + + | Total | 6.3 | 6.0 - 7.8 g/dL | [facility] | | | Protein | | | [facility] | | | | | | [facility] | | | | | | [facility] - | | | | | | LABORATORY | | + + + + + + | AST | 54 (H) | 10 - 42 U/L | [facility] | | | | | | [facility] | | [facility] | | | [facility] | | | | | | [facility] - | | | | | | LABORATORY | | + + + + + + | ALT | 29 | 6 - 45 U/L | [facility] | | | | | | [facility] | | | | | | [facility] | | | | | | [facility] - | | | | | | LABORATORY | | + + + + + + | Alkaline | 82 | 40 - 110 U/L | [facility] | | | Phosphatase | | | [facility] | | | | | | [facility] | | | | | | CENTER - | | | | | | LABORATORY | | + + + + + + | Globulin | 2.8 | 2.1 - 3.8 g/dL | [facility] | | | | | | [facility] | | | | | | [facility] | | | | | | [facility] - | | | | | | LABORATORY | | + + + + + + | Albumin/Ludy | 1.3 | 0.8 - 2.0 | [facility] | | | bulin Ratio | | | [facility] | | | | | | [facility] | | | | | | CENTER - | | | | | | LABORATORY | | + + + + + + | BUN/Creatin | 8.0 | | [facility] | | | ine Ratio | | | [facility] | | | | | | [facility] | | | | | | CENTER - | | | | | | LABORATORY | | + + + + + + + + | Specimen | + + | Blood | + + + + + + + | Performing | Address | City/State/Zipcode | Phone Number | | Organization | | | | + + + + + | [facility] | [address] | [place] | [phone] | | [facility] | | [address] | | | - LABORATORY | | | | + + + + + Extra Lavender Top Tube (11/06/2017 2:06 PM PDT) + +-------+ + + + | Component | Value | Ref Range | Performed | Pathologist | | | | | At | Signature | + +-------+ + + + | Extra | Done | | [facility] | | | Lavender | | | [facility] | | | Top Tube | | | MEDICAL | | | | | | CENTER - | | | | | | LABORATORY | | + +-------+ + + + + + | Specimen | + + | Blood | + + + + + + + | Performing | Address | City/State/Zipcode | Phone Number | | Organization | | | | + + + + + | [facility] | [address] | [place] | [phone] | | [facility] | | [address] | | | - LABORATORY | | | | + + + + + Phosphorus (11/06/2017 2:06 PM PDT) + +---------+ + + + | Component | Value | Ref Range | Performed | Pathologist | | | | | At | Signature | + +---------+ + + + | Phosphorus | 2.0 (L) | 2.5 - 4.6 mg/dL | [facility] | | | [facility] | | [facility] | | | | | | [facility] - | | | | | | LABORATORY | | + +---------+ + + + + + | Specimen | + + | Blood | + + + + + + + | Performing | Address | City/State/Zipcode | Phone Number | | Organization | | | | + + + + + | [facility] | [address] | [place] | [phone] | | [facility] | | [address] | | | - LABORATORY | | | | + + + + + Basic Metabolic Panel (11/06/2017 2:06 PM PDT) + + + + + + | Component | Value | Ref Range | Performed | Pathologist | | | | | At | Signature | + + + + + + | Na | 127 (L) | 136 - 149 | [facility] | | | | | mmol/L | [facility] | | | | | | MEDICAL | | | | | | CENTER - | | | | | | LABORATORY | | + + + + + + | K | 3.3 (L) | 3.5 - 5.1 | [facility] | | | | | mmol/L | [facility] | | | | | | MEDICAL | | | | | | CENTER - | | | | | | LABORATORY | | + + + + + + | Cl | 89 (L) | 98 - 109 mmol/L | [facility] | | | | | | [facility] | | | | | | MEDICAL | | | | | | CENTER - | | | | | | LABORATORY | | + + + + + + | CO2 | 28 | 24 - 31 mmol/L | [facility] | | | | | | [facility] | | | | | | MEDICAL | | | | | | CENTER - | | | | | | LABORATORY | | + + + + + + | Anion Gap | 10 | 3 - 16 mmol/L | [facility] | | | | | | [facility] | | | | | | [facility] | | | | | | CENTER - | | | | | | LABORATORY | | + + + + + + | Glucose | 159 (H) | 70 - 109 mg/dL | [facility] | | | | | | [facility] | | | | | | [facility] | | | | | | CENTER - | | | | | | LABORATORY | | + + + + + + | BUN | 5 (L) | 7 - 18 mg/dL | [facility] | | | | | | [facility] | | | | | | [facility] | | | | | | CENTER - | | | | | | LABORATORY | | + + + + + + | Creatinine | 0.47 (L) | 0.60 - 1.30 | [facility] | | | | | mg/dL | [facility] | | | | | | MEDICAL | | | | | | CENTER - | | | | | | LABORATORY | | + + + + + + | eGFR if not | >60Comment: GLOMERULAR | >=60 | [facility] | | | | FILTRATION | mL/min/1.73m2 | [facility] | | | MONEGASQUE | RATE,ESTIMATED | | MEDICAL | | | | mL/min/1.41g9Mzea than | | CENTER - | | | | 60 Chronic kidney | | LABORATORY | | | | disease,if found over a | | | | | | 3-month period.Less than | | | | | | 15 Kidney failureFor | | | | | | | | | | | | Americans,multiply the | | | | | | calculated GFR by 1.21. | | | | | | | | | | + + + + + + | Calcium | 8.0 (L) | 8.3 - 10.5 | [facility] | | | | | mg/dL | [facility] | | | | | | MEDICAL | | | | | | CENTER - | | | | | | LABORATORY | | + + + + + + | BUN/Creatin | 10.6 | | [facility] | | | ine Ratio | | | [facility] | | | | | | [facility]ICAL | | | | | | CENTER - | | | | | | LABORATORY | | + + + + + + + + | Specimen | + + | Blood | + + + + + + + | Performing | Address | City/State/Zipcode | Phone Number | | Organization | | | | + + + + + | [facility] | [address] | [place] | [phone] | | [facility] | | [address] | | | - LABORATORY | | | | + + + + + XR Pelvis 1 or 2 Vw (11/06/2017 12:24 PM PDT) + + | Specimen | + + | | + + + + + | Narrative | Performed At | + + + | SINGLE AP PELVIS 11/06/2017 12:06 PM CLINICAL HISTORY: R DRU for | [facility] | | fracture COMPARISON: RADIOGRAPHY FROM THE PREVIOUS DAY | | | FINDINGS: Right total hip arthroplasty hardware is now present, and | | | appears well seated. No fracture or subluxation is evident. The | | | left hip joint, pubic symphysis and SI joints are maintained. Skin | | | chris project lateral to the right hip. IMPRESSION - 1. | | | SATISFACTORY APPEARANCE STATUS POST RIGHT TOTAL HIP ARTHROPLASTY. | | | Dictated and Signed by: Melecio Chaudhry MD Electronically signed: | | | 11/06/2017 1:12 PM | | + + + + + | Procedure Note | + + | Caleb, Rad Results In - 11/06/2017 1:15 PM PDT SINGLE AP PELVIS 11/06/2017 12:06 PM | | | | CLINICAL HISTORY: R DRU for fracture | | | | COMPARISON: RADIOGRAPHY FROM THE PREVIOUS DAY | | | | FINDINGS: Right total hip arthroplasty hardware is now present, and appears well | | seated. No fracture or subluxation is evident. The left hip joint, pubic | | symphysis and SI joints are maintained. Skin chris project lateral to the | | right hip. | | | | IMPRESSION - | | 1. SATISFACTORY APPEARANCE STATUS POST RIGHT TOTAL HIP ARTHROPLASTY. | | | | Dictated and Signed by: Melecio Chaudhry MD | | Electronically signed: 11/06/2017 1:12 PM | + + + +---------+ + + | Performing | Address | City/State/Zipcode | Phone Number | | Organization | | | | + +---------+ + + | [facility] | | | | + +---------+ + + LIAT Regan Sunil Meagan Ceja (11/06/2017 11:29 AM PDT) + + | Specimen | + + | | + + + + + | Narrative | Performed At | + + + | This exam has been auto-finalized and the interpretation may exist | [facility] | | elsewhere in the chart. | | + + + + +---------+ + + | Performing | Address | City/State/Zipcode | Phone Number | | Organization | | | | + +---------+ + + | [facility] | | | | + +---------+ + + Magnesium (11/06/2017 6:19 AM PDT) + +---------+ + + + | Component | Value | Ref Range | Performed | Pathologist | | | | | At | Signature | + +---------+ + + + | Magnesium | 1.2 (L) | 1.8 - 2.5 mg/dL | [facility] | | | | | | [facility] | | | | | | [facility]ICAL | | | | | | CENTER - | | | | | | LABORATORY | | + +---------+ + + + + + | Specimen | + + | Blood | + + + + + + + | Performing | Address | City/State/Zipcode | Phone Number | | Organization | | | | + + + + + | [facility] | [address] | [place] | [phone] | | [facility] | | [address] | | | - LABORATORY | | | | + + + + + Protime LORRIE (11/06/2017 6:19 AM PDT) + + + + + + | Component | Value | Ref Range | Performed | Pathologist | | | | | At | Signature | + + + + + + | Prothrombin | 11.1 (L) | 11.3 - 13.9 | [facility] | | | Time | | seconds | [facility] | | | | | | MEDICAL | | | | | | CENTER - | | | | | | LABORATORY | | + + + + + + | INR | 0.81 (L)Comment: Usual | 0.90 - 1.10 | [facility] | | | | Oral Anticoagulation | | [facility] | | | | Range: 2.0 - | | MEDICAL | | | | 3.0High Level Oral | | CENTER - | | | | Anticoagulation Range: | | LABORATORY | | | | 2.5 - 3.5 | | | | + + + + + + + + | Specimen | + + | Blood | + + + + + + + | Performing | Address | City/State/Zipcode | Phone Number | | Organization | | | | + + + + + | [facility] | [address] | [place] | [phone] | | [facility] | | [address] | | | - LABORATORY | | | | + + + + + CBC with Differential (11/06/2017 6:19 AM PDT) + + + + + + | Component | Value | Ref Range | Performed | Pathologist | | | | | At | Signature | + + + + + + | WBC | 4.3 | 4.0 - 11.0 K/uL | [facility] | | | | | | [facility] | | | | | | [facility] | | | | | | CENTER - | | | | | | LABORATORY | | + + + + + + | RBC | 3.54 (L) | 3.70 - 5.20 | [facility] | | | | | M/uL | [facility] | | | | | | MEDICAL | | | | | | CENTER - | | | | | | LABORATORY | | + + + + + + | Hemoglobin | 11.9 | 11.5 - 16.0 | [facility] | | | | | g/dL | [facility] | | | | | | MEDICAL | | | | | | CENTER - | | | | | | LABORATORY | | + + + + + + | Hematocrit | 35.7 | 34.0 - 47.0 % | [facility] | | | | | | [facility] | | | | | | [facility]ICAL | | | | | | CENTER - | | | | | | LABORATORY | | + + + + + + | MCV | 100.8 | 83.0 - 101.0 fL | [facility] | | | | | | [facility] | | | | | | [facility]ICAL | | | | | | CENTER - | | | | | | LABORATORY | | + + + + + + | MCH | 33.6 | 28.0 - 35.0 pg | [facility] | | | | | | [facility] | | | | | | MEDICAL | | | | | | CENTER - | | | | | | LABORATORY | | + + + + + + | MCHC | 33.3 | 32.0 - 36.0 | [facility] | | | | | g/dL | [facility] | | | | | | MEDICAL | | | | | | CENTER - | | | | | | LABORATORY | | + + + + + + | RDW-CV | 15.3 (H) | <15.0 % | [facility] | | | | | | [facility] | | | | | | [facility]ICAL | | | | | | CENTER - | | | | | | LABORATORY | | + + + + + + | Platelet | 101 (L) | 140 - 440 K/uL | [facility] | | | Count | | | [facility] | | | | | | MEDICAL | | | | | | CENTER - | | | | | | LABORATORY | | + + + + + + | MPV | 7.2 | fL | [facility] | | | | | | [facility] | | | | | | [facility]ICAL | | | | | | CENTER - | | | | | | LABORATORY | | + + + + + + | % | 64.5 | 45.0 - 82.0 % | [facility] | | | Neutrophils | | | [facility] | | | | | | MEDICAL | | | | | | CENTER - | | | | | | LABORATORY | | + + + + + + | % | 25.9 | 20.0 - 45.0 % | [facility] | | | Lymphocytes | | | [facility] | | | | | | MEDICAL | | | | | | CENTER - | | | | | | LABORATORY | | + + + + + + | % Monocytes | 8.1 | 4.0 - 12.0 % | [facility] | | | | | | [facility] | | | | | | [facility]ICAL | | | | | | CENTER - | | | | | | LABORATORY | | + + + + + + | % | 1.0 | 0.0 - 5.0 % | [facility] | | | Eosinophils | | | [facility] | | | | | | MEDICAL | | | | | | CENTER - | | | | | | LABORATORY | | + + + + + + | % Basophils | 0.5 | 0.0 - 1.0 % | [facility] | | | | | | [facility] | | | | | | MEDICAL | | | | | | CENTER - | | | | | | LABORATORY | | + + + + + + | Absolute | 2.70 | 1.80 - 8.50 | [facility] | | | Neutrophils | | K/uL | [facility] | | | | | | MEDICAL | | | | | | CENTER - | | | | | | LABORATORY | | + + + + + + | Absolute | 1.10 | 0.60 - 3.20 | [facility] | | | Lymphocytes | | K/uL | [facility] | | | | | | MEDICAL | | | | | | CENTER - | | | | | | LABORATORY | | + + + + + + | Absolute | 0.30 | 0.00 - 1.00 | [facility] | | | Monocytes | | K/uL | [facility] | | | | | | MEDICAL | | | | | | CENTER - | | | | | | LABORATORY | | + + + + + + | Absolute | 0.00 | 0.00 - 0.40 | [facility] | | | Eosinophils | | K/uL | [facility] | | | | | | MEDICAL | | | | | | CENTER - | | | | | | LABORATORY | | + + + + + + | Absolute | 0.00 | 0.00 - 0.10 | [facility] | | | Basophils | | K/uL | [facility] | | | | | | MEDICAL | | | | | | CENTER - | | | | | | LABORATORY | | + + + + + + + + | Specimen | + + | Blood | + + + + + + + | Performing | Address | City/State/Zipcode | Phone Number | | Organization | | | | + + + + + | [facility] | [address] | [place] | [phone] | | [facility] | | [address] | | | - LABORATORY | | | | + + + + + Comprehensive Metabolic Panel (11/06/2017 6:19 AM PDT) + + + + + + | Component | Value | Ref Range | Performed | Pathologist | | | | | At | Signature | + + + + + + | Na | 129 (L) | 136 - 149 | [facility] | | | | | mmol/L | [facility] | | | | | | MEDICAL | | | | | | CENTER - | | | | | | LABORATORY | | + + + + + + | K | 3.4 (L) | 3.5 - 5.1 | [facility] | | | | | mmol/L | [facility] | | | | | | MEDICAL | | | | | | CENTER - | | | | | | LABORATORY | | + + + + + + | Cl | 87 (L) | 98 - 109 mmol/L | [facility] | | | | | | [facility] | | | | | | MEDICAL | | | | | | CENTER - | | | | | | LABORATORY | | + + + + + + | CO2 | 30 | 24 - 31 mmol/L | [facility] | | | | | | [facility] | | | | | | MEDICAL | | | | | | CENTER - | | | | | | LABORATORY | | + + + + + + | Anion Gap | 12 | 3 - 16 mmol/L | [facility] | | | | | | [facility] | | | | | | [facility]ICAL | | | | | | CENTER - | | | | | | LABORATORY | | + + + + + + | Glucose | 111 (H) | 70 - 109 mg/dL | [facility] | | | | | | [facility] | | | | | | [facility]ICAL | | | | | | CENTER - | | | | | | LABORATORY | | + + + + + + | BUN | 5 (L) | 7 - 18 mg/dL | [facility] | | | | | | [facility] | | | | | | [facility]ICAL | | | | | | CENTER - | | | | | | LABORATORY | | + + + + + + | Creatinine | 0.53 (L) | 0.60 - 1.30 | [facility] | | | | | mg/dL | [facility] | | | | | | MEDICAL | | | | | | CENTER - | | | | | | LABORATORY | | + + + + + + | eGFR if not | >60Comment: GLOMERULAR | >=60 | [facility] | | | | FILTRATION | mL/min/1.73m2 | [facility] | | | MONEGASQUE | RATE,ESTIMATED | | MEDICAL | | | | mL/min/1.26f6Ufat than | | CENTER - | | | | 60 Chronic kidney | | LABORATORY | | | | disease,if found over a | | | | | | 3-month period.Less than | | | | | | 15 Kidney failureFor | | | | | | | | | | | | Americans,multiply the | | | | | | calculated GFR by 1.21. | | | | | | | | | | + + + + + + | Calcium | 8.5 | 8.3 - 10.5 | [facility] | | | | | mg/dL | [facility] | | | | | | MEDICAL | | | | | | CENTER - | | | | | | LABORATORY | | + + + + + + | Albumin | 4.1 | 3.2 - 5.0 g/dL | [facility] | | | | | | [facility] | | | | | | MEDICAL | | | | | | CENTER - | | | | | | LABORATORY | | + + + + + + | Bilirubin | 1.0 | 0.1 - 1.5 mg/dL | [facility] | | | Total | | | [facility] | | | | | | MEDICAL | | | | | | CENTER - | | | | | | LABORATORY | | + + + + + + | Total | 7.3 | 6.0 - 7.8 g/dL | [facility] | | | Protein | | | [facility] | | | | | | [facility]ICAL | | | | | | CENTER - | | | | | | LABORATORY | | + + + + + + | AST | 62 (H) | 10 - 42 U/L | [facility] | | | | | | [facility] | | | | | | MEDICAL | | | | | | CENTER - | | | | | | LABORATORY | | + + + + + + | ALT | 32 | 6 - 45 U/L | [facility] | | | | | | [facility] | | | | | | MEDICAL | | | | | | CENTER - | | | | | | LABORATORY | | + + + + + + | Alkaline | 107 | 40 - 110 U/L | [facility] | | | Phosphatase | | | [facility] | | | | | | MEDICAL | | | | | | CENTER - | | | | | | LABORATORY | | + + + + + + | Globulin | 3.2 | 2.1 - 3.8 g/dL | [facility] | | | | | | [facility] | | | | | | MEDICAL | | | | | | CENTER - | | | | | | LABORATORY | | + + + + + + | Albumin/Ludy | 1.3 | 0.8 - 2.0 | [facility] | | | bulin Ratio | | | [facility] | | | | | | MEDICAL | | | | | | CENTER - | | | | | | LABORATORY | | + + + + + + | BUN/Creatin | 9.4 | | [facility] | | | ine Ratio | | | [facility] | | | | | | MEDICAL | | | | | | CENTER - | | | | | | LABORATORY | | + + + + + + + + | Specimen | + + | Blood | + + + + + + + | Performing | Address | City/State/Zipcode | Phone Number | | Organization | | | | + + + + + | [facility] | [address] | [place], [place] | [phone] | | [facility] | | [address] | | | - LABORATORY | | | | + + + + + CT Chest wo Contrast (11/05/2017 4:29 PM PDT) + + | Specimen | + + | | + + + + + | Narrative | Performed At | + + + | UNENHANCED CHEST CT 11/05/2017 4:18 PM CLINICAL HISTORY: broken | [facility] | | ribs and difficulty breathing COMPARISON: Chest radiography and | | | abdominal CT from earlier in the day TECHNIQUE: Axial unenhanced | | | images are performed through the chest, along with multiplanar | | | reformations. FINDINGS: The mediastinum has an unremarkable | | | unenhanced appearance. No pathologic lymph node enlargement is | | | evident. There is no pleural or pericardial effusion or | | | pneumothorax. Mild dependent density and bandlike opacity in the | | | lower lungs is consistent with atelectasis. No consolidation, | | | nodule or airway abnormality is evident. Bilateral breast implants | | | are present and demonstrate smooth contour without overt evidence of | | | rupture. Several healed/healing bilateral rib fractures are | | | present. A nondisplaced left posterior 10th rib fracture | | | demonstrates early changes of healing. Healed fracture of the | | | sternal body is suggested as well. Vertebral height and alignment | | | are maintained. There is high attenuation material throughout the | | | imaged gallbladder, potentially reflecting vicarious excretion of | | | previously administered IV contrast. Hypoattenuation of the imaged | | | liver suggests fatty infiltration. Imaged upper abdomen is | | | otherwise unremarkable. IMPRESSION - 1. HEALING/HEALED RIB | | | FRACTURES WITHOUT PNEUMOTHORAX, PLEURAL EFFUSION OR OTHER EVIDENCE OF | | | ACUTE INTRATHORACIC DISEASE. 2. PROBABLE VICARIOUS EXCRETION OF | | | IV CONTRAST INTO THE GALLBLADDER. 3. HYPOATTENUATION OF THE | | | IMAGED LIVER SUGGESTING FATTY INFILTRATION. Preliminary results of | | | this study were reported by the [facility] radiologist on October | | | 2017 at 1718 hours. Dictated and Signed by: Melecio Chaudhry MD | | | Electronically signed: 11/05/2017 9:28 PM | | + + + + + | Procedure Note | + + | Caleb, Rad Results In - 11/05/2017 9:31 PM PDT UNENHANCED CHEST CT 11/05/2017 4:18 PM | | | | CLINICAL HISTORY: broken ribs and difficulty breathing | | | | COMPARISON: Chest radiography and abdominal CT from earlier in the day | | | | TECHNIQUE: Axial unenhanced images are performed through the chest, along with | | multiplanar reformations. | | | | FINDINGS: The mediastinum has an unremarkable unenhanced appearance. No | | pathologic lymph node enlargement is evident. There is no pleural or | | pericardial effusion or pneumothorax. Mild dependent density and bandlike | | opacity in the lower lungs is consistent with atelectasis. No consolidation, | | nodule or airway abnormality is evident. Bilateral breast implants are present | | and demonstrate smooth contour without overt evidence of rupture. Several | | healed/healing bilateral rib fractures are present. A nondisplaced left | | posterior 10th rib fracture demonstrates early changes of healing. Healed | | fracture of the sternal body is suggested as well. Vertebral height and | | alignment are maintained. There is high attenuation material throughout the | | imaged gallbladder, potentially reflecting vicarious excretion of previously | | administered IV contrast. Hypoattenuation of the imaged liver suggests fatty | | infiltration. Imaged upper abdomen is otherwise unremarkable. | | | | IMPRESSION - | | 1. HEALING/HEALED RIB FRACTURES WITHOUT PNEUMOTHORAX, PLEURAL EFFUSION OR OTHER | | EVIDENCE OF ACUTE INTRATHORACIC DISEASE. | | | | 2. PROBABLE VICARIOUS EXCRETION OF IV CONTRAST INTO THE GALLBLADDER. | | | | 3. HYPOATTENUATION OF THE IMAGED LIVER SUGGESTING FATTY INFILTRATION. | | | | Preliminary results of this study were reported by the [facility] | | radiologist on November 05, 2017 at 1718 hours. | | | | Dictated and Signed by: Melecio Chaudhry MD | | Electronically signed: 11/05/2017 9:28 PM | + + + +---------+ + + | Performing | Address | City/State/Zipcode | Phone Number | | Organization | | | | + +---------+ + + | [facility] | | | | + +---------+ + + Urinalysis with Microscopic with Culture if Indicated (11/05/2017 1:20 PM PDT) + + + + + + | Component | Value | Ref Range | Performed | Pathologist | | | | | At | Signature | + + + + + + | Color, | Straw | Light Yellow, | [facility] | | | Urine | | Yellow, Straw | [facility] | | | | | | MEDICAL | | | | | | CENTER - | | | | | | LABORATORY | | + + + + + + | Clarity | Clear | Clear | [facility] | | | | | | [facility] | | | | | | MEDICAL | | | | | | CENTER - | | | | | | LABORATORY | | + + + + + + | pH, Urine | 6.0 | 5.0 - 8.0 | [facility] | | | | | | [facility] | | | | | | MEDICAL | | | | | | CENTER - | | | | | | LABORATORY | | + + + + + + | Specific | 1.021 | 1.001 - 1.030 | [facility] | | | [place], | | | [facility] | | | Urine | | | MEDICAL | | | | | | CENTER - | | | | | | LABORATORY | | + + + + + + | Protein, | Negative | Negative | [facility] | | | Urine | | | [facility] | | | | | | MEDICAL | | | | | | CENTER - | | | | | | LABORATORY | | + + + + + + | Blood, | Negative | Negative | [facility] | | | Urine | | | [facility] | | | | | | MEDICAL | | | | | | CENTER - | | | | | | LABORATORY | | + + + + + + | Glucose, | Negative | Negative | [facility] | | | Urine | | | [facility] | | | | | | MEDICAL | | | | | | CENTER - | | | | | | LABORATORY | | + + + + + + | Ketones, | 20 mg/dL (A) | Negative | [facility] | | | Urine | | | [facility] | | | | | | MEDICAL | | | | | | CENTER - | | | | | | LABORATORY | | + + + + + + | Bilirubin, | Negative | Negative | [facility] | | | Urine | | | [facility] | | | | | | [facility] | | | | | | [facility] - | | | | | | LABORATORY | | + + + + + + | Nitrite, | Negative | Negative | [facility] | | | Urine | | | [facility] | | | | | | [facility] | | | | | | CENTER - | | | | | | LABORATORY | | + + + + + + | Leukocyte | Negative | Negative | [facility] | | | Esterase, | | | [facility] | | | Urine | | | MEDICAL | | | | | | CENTER - | | | | | | LABORATORY | | + + + + + + | Urobilinoge | Negative | 0.2 mg/dL, 1.0 | [facility] | | | n, Urine | | mg/dL, Negative | [facility] | | | | | | [facility]ICAL | | | | | | CENTER - | | | | | | LABORATORY | | + + + + + + | White Blood | 0-2 | 0 - 2 /HPF | [facility] | | | Cells, | | | [facility] | | | Urine | | | MEDICAL | | | | | | CENTER - | | | | | | LABORATORY | | + + + + + + | Red Blood | 0-2 | 0 - 2 /HPF | [facility] | | | Cells, | | | [facility] | | | Urine | | | MEDICAL | | | | | | CENTER - | | | | | | LABORATORY | | + + + + + + | Squamous | 0-2 | 0 - 2 /LPF | [facility] | | | Epithelial | | | [facility] | | | Cells, | | | MEDICAL | | | Urine | | | CENTER - | | | | | | LABORATORY | | + + + + + + | Bacteria, | Negative | Negative /HPF | [facility] | | | Urine | | | [facility] | | | | | | MEDICAL | | | | | | CENTER - | | | | | | LABORATORY | | + + + + + + | Amorphous | Few (A) | None Seen /HPF | [facility] | | | Crystals, | | | [facility] | | | Urine | | | MEDICAL | | | | | | CENTER - | | | | | | LABORATORY | | + + + + + + | Urine | Urine Culture Not | | [facility] | | | Comment | Indicated | | [facility] | | | | | | MEDICAL | | | | | | CENTER - | | | | | | LABORATORY | | + + + + + + + + | Specimen | + + | Urine - Urine | | specimen obtained by | | single | | catheterization of | | bladder (specimen) | + + + + + + + | Performing | Address | City/State/Zipcode | Phone Number | | Organization | | | | + + + + + | [facility] | [address] | [place] | [phone] | | [facility] | | [id number] | | | - LABORATORY | | | | + + + + + Drugs of Abuse, Screen, Urine (11/05/2017 1:20 PM PDT) + + + + + + | Component | Value | Ref Range | Performed | Pathologist | | | | | At | Signature | + + + + + + | Amphetamine | Negative | Negative | [facility] | | | Screen, | | | [facility] | | | [facility] | | | | | | CENTER - | | | | | | LABORATORY | | + + + + + + | Barbiturate | Negative | Negative | [facility] | | | s Screen, | | | [facility] | | | Urine | | | MEDICAL | | | | | | CENTER - | | | | | | LABORATORY | | + + + + + + | Benzodiazep | Negative | Negative | [facility] | | | rober | | | [facility] | | | Screen, | | | MEDICAL | | | Urine | | | CENTER - | | | | | | LABORATORY | | + + + + + + | Cannabinoid | Negative | Negative | [facility] | | | s Screen, | | | [facility] | | | Urine | | | MEDICAL | | | | | | CENTER - | | | | | | LABORATORY | | + + + + + + | Cocaine | Negative | Negative | [facility] | | | Screen, | | | [facility] | | | Urine | | | MEDICAL | | | | | | CENTER - | | | | | | LABORATORY | | + + + + + + | Methadone | Negative | Negative | [facility] | | | Screen, | | | [facility] | | | Urine | | | MEDICAL | | | | | | CENTER - | | | | | | LABORATORY | | + + + + + + | Opiates | Positive (A) | Negative | [facility] | | | Screen, | | | [facility] | | | Urine | | | MEDICAL | | | | | | CENTER - | | | | | | LABORATORY | | + + + + + + + + | Specimen | + + | Urine - Urine | | specimen obtained by | | single | | catheterization of | | bladder (specimen) | + + + + + + + | Performing | Address | City/State/Zipcode | Phone Number | | Organization | | | | + + + + + | [facility] | [address] | [place] | [phone] | | [facility] | | [address] | | | - LABORATORY | | | | + + + + + , Urine, Qual (11/05/2017 1:20 PM PDT) + + + + + + | Component | Value | Ref Range | Performed | Pathologist | | | | | At | Signature | + + + + + + | HCG | Negative | Negative | [facility] | | | Qualitative | | | [facility] | | | , Urine | | | MEDICAL | | | | | | CENTER - | | | | | | LABORATORY | | + + + + + + + + | Specimen | + + | Urine - Urine | | specimen obtained by | | single | | catheterization of | | bladder (specimen) | + + + + + + + | Performing | Address | City/State/Zipcode | Phone Number | | Organization | | | | + + + + + | [facility] | [address] | [place] | [phone] | | [facility] | | [address] | | | - LABORATORY | | | | + + + + + ECG 12 lead (11/05/2017 12:44 PM PDT) + + + + + + | Component | Value | Ref Range | Performed | Pathologist | | | | | At | Signature | + + + + + + | VENTRICULAR | 105 | BPM | [facility] | | | RATE EKG | | | | | + + + + + + | ATRIAL RATE | 105 | BPM | [facility] | | + + + + + + | P-R | 194 | ms | [facility] | | | INTERVAL | | | | | + + + + + + | QRS | 86 | ms | [facility] | | | DURATION | | | | | + + + + + + | Q-T | 350 | ms | [facility] | | | INTERVAL | | | | | + + + + + + | Q-T | 462 | ms | [facility] | | | INTERVAL | | | | | | (CORRECTED) | | | | | + + + + + + | P WAVE AXIS | 78 | degrees | [facility] | | + + + + + + | QRS AXIS | 77 | degrees | [facility] | | + + + + + + | T AXIS | 78 | degrees | [facility] | | + + + + + + | INTERPRETAT | Sinus | | [facility] | | | ION TEXT | tachycardiaOtherwise | | | | | | normal ECGNo previous | | | | | | ECGs availableConfirmed | | | | | | by FARRUKH FINN MD | | | | | | ([id number]) on 11/06/2017 | | | | | | 8:53:18 AM | | | | + + + + + + + + | Specimen | + + | | + + + + + | Narrative | Performed At | + + + | | | + + + + +---------+ + + | Performing | Address | City/State/Zipcode | Phone Number | | Organization | | | | + +---------+ + + | [facility] | | | | + +---------+ + + Extra Lavender Top Tube (11/05/2017 12:34 PM PDT) + +-------+ + + + | Component | Value | Ref Range | Performed | Pathologist | | | | | At | Signature | + +-------+ + + + | Extra | Done | | [facility] | | | Lavender | | | [facility] | | | Top Tube | | | MEDICAL | | | | | | CENTER - | | | | | | LABORATORY | | + +-------+ + + + + + | Specimen | + + | Blood | + + + + + + + | Performing | Address | City/State/Zipcode | Phone Number | | Organization | | | | + + + + + | [facility] | [address] | [place] | [phone] | | [facility] | | [address] | | | - LABORATORY | | | | + + + + + Ethanol (11/05/2017 12:34 PM PDT) + +-------+ + + + | Component | Value | Ref Range | Performed | Pathologist | | | | | At | Signature | + +-------+ + + + | ALCOHOL, | 151 | <400 mg/dL | [facility] | | | SERUM/PLASM | | | [facility] | | | A | | | MEDICAL | | | | | | CENTER - | | | | | | LABORATORY | | + +-------+ + + + + + | Specimen | + + | Blood | + + + + + + + | Performing | Address | City/State/Zipcode | Phone Number | | Organization | | | | + + + + + | [facility] | [address] | [place] | [phone] | | [facility] | | [address] | | | - LABORATORY | | | | + + + + + Troponin I (11/05/2017 12:34 PM PDT) + + + + + + | Component | Value | Ref Range | Performed | Pathologist | | | | | At | Signature | + + + + + + | Troponin I | 0.01Comment: Reference | <0.06 ng/mL | [facility] | | | | Ranges:0.00-0.06 = | | [facility] | | | | NORMAL>0.06 = | | MEDICAL | | | | SUSPICIOUS FOR | | CENTER - | | | | MYOCARDIAL DAMAGE NOTE: | | LABORATORY | | | | Values greater than 0.50 | | | | | | ng/mL have been shown | | | | | | to be strongly | | | | | | associated with acute | | | | | | myocardial infarction. | | | | | | The [employer] | | | | | | Cardiology (ACC) | | | | | | recommends a decision | | | | | | limit of 0.06 ng/mL for | | | | | | this assay. Results | | | | | | greater than 0.06 can | | | | | | reflect a pre-infarct | | | | | | acute coronary syndrome, | | | | | | but can also reflect | | | | | | myocardial necrosis or | | | | | | injury that is not due | | | | | | to coronary artery | | | | | | disease. Some of these | | | | | | causes are sepsis, | | | | | | hypocolemia, atrial | | | | | | fibrillation, heart | | | | | | failure, pulmonary | | | | | | embolism, myocarditis, | | | | | | myocardial contusion, | | | | | | and renal failure. The | | | | | | diagnosis of myocardial | | | | | | infarction should be | | | | | | based on a combination | | | | | | of the patient's | | | | | | clinical presentation | | | | | | and the clinical | | | | | | laboratory test results | | | | | | (especially serial | | | | | | troponin levels). | | | | + + + + + + + + | Specimen | + + | Blood | + + + + + + + | Performing | Address | City/State/Zipcode | Phone Number | | Organization | | | | + + + + + | [facility] | [address] | [place] | [phone] | | [facility] | | [address] | | | - LABORATORY | | | | + + + + + Type and Screen (11/05/2017 12:33 PM PDT) + + + + + + | Component | Value | Ref Range | Performed | Pathologist | | | | | At | Signature | + + + + + + | ABO | A | | [facility] | | | | | | [facility] | | | | | | MEDICAL | | | | | | CENTER - | | | | | | BLOOD BANK | | + + + + + + | Rh Type | Positive | | [facility] | | | | | | [facility] | | | | | | MEDICAL | | | | | | CENTER - | | | | | | BLOOD BANK | | + + + + + + | Antibody | Negative | | [facility] | | | Screen | | | [facility] | | | | | | MEDICAL | | | | | | CENTER - | | | | | | BLOOD BANK | | + + + + + + + + | Specimen | + + | Blood | + + + + + + + | Performing | Address | City/State/Zipcode | Phone Number | | Organization | | | | + + + + + | [facility] | [address] | [place] | | | [facility] | | [address] | | | - BLOOD BANK | | | | + + + + + XR Chest 1 Vw (11/05/2017 8:50 AM PDT) + + | Specimen | [...] | | | + +---------+ + + CT Abdomen Pelvis w Contrast (11/05/2017 7:05 [...] | | | + +---------+ + + CT Head wo Contrast (11/05/2017 7:00 AM PDT) + + | Specimen | [...] | | | + +---------+ + + CT Cervical Spine wo Contrast (11/05/2017 6:55 AM PDT) + + | Specimen | [...] | | | + +---------+ + + XR Hip Right 2-3 Views (11/05/2017 6:30 [...] | | | + +---------+ + + LABS - EXTERNAL SCAN (11/05/2017 12:00 AM PDT) + + + | Narrative | Performed At | + + + | Ordered by an | | | unspecified provider. | | + + + IMAGING REPORT - EXTERNAL SCAN (11/05/2017 12:00 AM PDT) + + + | Narrative | Performed At | + + + | Ordered by an | | | unspecified provider. | | + + + IMAGING REPORT - EXTERNAL SCAN (11/05/2017 12:00 AM PDT) + + + | Narrative | Performed At | + + + | Ordered by an | | | unspecified provider. | | + + + IMAGING REPORT - EXTERNAL SCAN (11/05/2017 12:00 AM PDT) + + + | Narrative | Performed At | + + + | Ordered by an | | | unspecified provider. | | + + + ECG - EXTERNAL SCAN (11/05/2017 12:00 AM PDT) + + + | Narrative | Performed At | + + + | Ordered by an | | | unspecified provider. | | + + + documented in this encounter Visit Diagnoses Not on filedocumented in this encounter Administered Medications + +--------+ +--------+------+------+ | Medication Order | MAR | Action | Dose | Rate | Site | | | Action | Date | | | | + +--------+ +--------+------+------+ | acetaminophen (TYLENOL) tablet | Given | 11/11/19 | 650 mg | | | | 650 mg 650 mg, Oral, EVERY 4 | | 18 9:03 | | | | | HOURS PRN, Pain, Fever, Starting | | AM PDT | | | | | 11/06/17 at 1300, | | | | | | | Post-op/Phase II | | | | | | + +--------+ +--------+------+------+ +---+---+ | | | +---+---+ + +-------+ +--------+---+---+ | aluminum & magnesium | Given | 11/11/19 | 30 mLs | | | | hydroxide-simethicone (MAALOX | | 18 8:14 | | | | | PLUS REGULAR STRENGTH) 200-200-20 | | PM PDT | | | | | mg/5 mL suspension 30 mL 30 mL, | | | | | | | Oral, EVERY 6 HOURS PRN, | | | | | | | Indigestion, Starting 11/06/17 | | | | | | | at 1300, Shake well., | | | | | | | Post-op/Phase II | | | | | | + +-------+ +--------+---+---+ +-------+ +--------+---+---+ | Given | 11/09/19 | 30 mLs | | | | | 18 12:43 | | | | | | PM PDT | | | | +-------+ +--------+---+---+ +---+---+ | | | +---+---+ + +-------+ +--------+---+---+ | aspirin tablet 325 mg 325 mg, | Given | 11/12/19 | 325 mg | | | | Oral, DAILY, First dose on Sun | | 18 8:04 | | | | | 11/06/17 at 1330 | | AM PDT | | | | + +-------+ +--------+---+---+ +-------+ +--------+---+---+ | Given | 11/11/19 | 325 mg | | | | | 18 9:03 | | | | | | AM PDT | | | | +-------+ +--------+---+---+ | Given | 11/10/19 | 325 mg | | | | | 18 9:05 | | | | | | AM PDT | | | | +-------+ +--------+---+---+ +---+---+ | | | +---+---+ + +-------+ +--------+---+ + | bupivacaine (liposomal) | Given | 11/07/19 | 20 mLs | | Hip-Righ | | (EXPAREL) 1.3% injection PRN, | | 18 11:20 | | | t | | Starting 11/06/17 at 1125, | | AM PDT | | | | | Intra-op | | | | | | + +-------+ +--------+---+ + +---+---+ | | | +---+---+ + +-------+ +--------+---+---+ | docusate sodium (COLACE) | Given | 11/09/19 | 100 mg | | | | capsule 100 mg 100 mg, Oral, 2 | | 18 12:44 | | | | | TIMES DAILY PRN, Constipation, | | PM PDT | | | | | Starting 11/06/17 at 1300, | | | | | | | First line agent for | | | | | | | constipation, Post-op/Phase II | | | | | | + +-------+ +--------+---+---+ +-------+ +--------+---+---+ | Given | 11/08/19 | 100 mg | | | | | 18 9:19 | | | | | | PM PDT | | | | +-------+ +--------+---+---+ | Given | 11/07/19 | 100 mg | | | | | 18 10:30 | | | | | | PM PDT | | | | +-------+ +--------+---+---+ +---+---+ | | | +---+---+ + +-------+ + +---+ + | ketorolac (TORADOL) 30 mg, | Given | 11/07/19 | 60.3 mLs | | Hip-Righ | | EPINEPHrine 0.3 mL in ropivacaine | | 18 10:50 | | | t | | (NAROPIN) 59 mL OpTesia mixture | | AM PDT | | | | | PRN, Starting 11/06/17 at | | | | | | | 1105, Intra-op | | | | | | + +-------+ + +---+ + +---+---+ | | | +---+---+ + +-------+ +-------+---+---+ | ketorolac (TORADOL) tablet 10 | Given | 11/12/19 | 10 mg | | | | mg 10 mg, Oral, EVERY 4 HOURS | | 18 6:11 | | | | | PRN, Pain, Starting Jyothi 11/10/17 | | AM PDT | | | | | at 1245, For 5 days | | | | | | + +-------+ +-------+---+---+ +-------+ +-------+---+---+ | Given | 11/12/19 | 10 mg | | | | | 18 2:04 | | | | | | AM PDT | | | | +-------+ +-------+---+---+ | Given | 11/11/19 | 10 mg | | | | | 18 8:13 | | | | | | PM PDT | | | | +-------+ +-------+---+---+ +---+---+ | | | +---+---+ + +-------+ +--------+---+---+ | lactulose liquid 30 mL 30 mL, | Given | 11/10/19 | 30 mLs | | | | Oral, DAILY PRN, Constipation, | | 18 5:07 | | | | | Starting 11/06/17 at 1300, If | | AM PDT | | | | | docusate, senna, and polyethylene | | | | | | | glycol ineffective x 24 hours or | | | | | | | not ordered, Post-op/Phase II | | | | | | + +-------+ +--------+---+---+ +---+---+ | | | +---+---+ + +-------+ +--------+---+---+ | magnesium oxide (MAG-OX) tablet | Given | 11/12/19 | 400 mg | | | | 400 mg 400 mg, Oral, DAILY, | | 18 8:03 | | | | | First dose on 11/07/17 at 1730 | | AM PDT | | | | + +-------+ +--------+---+---+ +-------+ +--------+---+---+ | Given | 11/11/19 | 400 mg | | | | | 18 9:03 | | | | | | AM PDT | | | | +-------+ +--------+---+---+ | Given | 11/10/19 | 400 mg | | | | | 18 9:05 | | | | | | AM PDT | | | | +-------+ +--------+---+---+ +---+---+ | | | +---+---+ + +-------+ +------+---+---+ | ondansetron (ZOFRAN ODT) | Given | 11/12/19 | 4 mg | | | | disintegrating tablet 4 mg 4 mg, | | 18 11:06 | | | | | Oral, EVERY 6 HOURS PRN, Nausea, | | AM PDT | | | | | Vomiting, Starting 11/06/17 | | | | | | | at 1300, First line agent, | | | | | | | Post-op/Phase II | | | | | | + +-------+ +------+---+---+ +-------+ +------+---+---+ | Given | 11/11/19 | 4 mg | | | | | 18 8:13 | | | | | | PM PDT | | | | +-------+ +------+---+---+ | Given | 11/11/19 | 4 mg | | | | | 18 4:59 | | | | | | AM PDT | | | | +-------+ +------+---+---+ +---+---+ | | | +---+---+ + +-------+ +-------+---+---+ | oxyCODONE (ROXICODONE) tablet | Given | 11/12/19 | 20 mg | | | | 5-20 mg 5-20 mg, Oral, EVERY 3 | | 18 11:01 | | | | | HOURS PRN, Pain, Starting Sun | | AM PDT | | | | | 11/06/17 at 1300, First dose must | | | | | | | be the lowest dose, can titrate | | | | | | | to effective dose by repeat of | | | | | | | lowest dose every 60 minutes prn | | | | | | | pain, may not exceed maximum dose | | | | | | | ordered per interval. Use Pasero | | | | | | | Sedation Scale., Post-op/Phase | | | | | | | II | | | | | | + +-------+ +-------+---+---+ +-------+ +-------+---+---+ | Given | 11/12/19 | 20 mg | | | | | 18 8:03 | | | | | | AM PDT | | | | +-------+ +-------+---+---+ | Given | 11/12/19 | 20 mg | | | | | 18 5:03 | | | | | | AM PDT | | | | +-------+ +-------+---+---+ +---+---+ | | | +---+---+ + +-------+ +-------+---+---+ | pantoprazole (PROTONIX) DR | Given | 11/12/19 | 40 mg | | | | tablet 40 mg 40 mg, Oral, DAILY | | 18 6:11 | | | | | BEFORE BREAKFAST, First dose on | | AM PDT | | | | | 11/06/17 at 1330, Do not cut | | | | | | | or crush., Post-op/Phase II | | | | | | + +-------+ +-------+---+---+ +-------+ +-------+---+---+ | Given | 11/11/19 | 40 mg | | | | | 18 6:04 | | | | | | AM PDT | | | | +-------+ +-------+---+---+ | Given | 11/10/19 | 40 mg | | | | | 18 5:04 | | | | | | AM PDT | | | | +-------+ +-------+---+---+ +---+---+ | | | +---+---+ + +-------+ +------+---+---+ | polyethylene glycol (MIRALAX) | Given | 11/09/19 | 17 g | | | | powder 17 g 17 g, Oral, DAILY | | 18 6:06 | | | | | PRN, Constipation, Starting Sun | | PM PDT | | | | | 11/06/17 at 1300, If docusate and | | | | | | | senna ineffective or not ordered, | | | | | | | Post-op/Phase II | | | | | | + +-------+ +------+---+---+ +---+---+ | | | +---+---+ + +-------+ +--------+---+---+ | senna (SENOKOT) tablet 8.6 mg | Given | 11/09/19 | 8.6 mg | | | | 8.6 mg, Oral, 2 TIMES DAILY PRN, | | 18 8:38 | | | | | Constipation, Starting Sun | | PM PDT | | | | | 11/06/17 at 1300, If docusate | | | | | | | ineffective or not ordered, | | | | | | | Post-op/Phase II | | | | | | + +-------+ +--------+---+---+ +-------+ +--------+---+---+ | Given | 11/09/19 | 8.6 mg | | | | | 18 12:43 | | | | | | PM PDT | | | | +-------+ +--------+---+---+ | Given | 11/08/19 | 8.6 mg | | | | | 18 9:19 | | | | | | PM PDT | | | | +-------+ +--------+---+---+ +---+---+ | | | +---+---+ + +-------+ +--------+---+ + | sodium chloride bacteriostatic | Given | 11/07/19 | 30 mLs | | Hip-Righ | | 0.9% injection PRN, Starting Sun | | 18 11:20 | | | t | | 11/06/17 at 1125, Intra-op | | AM PDT | | | | + +-------+ +--------+---+ + +---+---+ | | | +---+---+ + +-------+ +------+---+---+ | tiZANidine (ZANAFLEX) tablet 4 | Given | 11/12/19 | 4 mg | | | | mg 4 mg, Oral, EVERY 6 HOURS | | 18 11:01 | | | | | PRN, Muscle spasms, Starting Wed | | AM PDT | | | | | 11/09/17 at 1701 | | | | | | + +-------+ +------+---+---+ +-------+ +------+---+---+ | Given | 11/12/19 | 4 mg | | | | | 18 5:03 | | | | | | AM PDT | | | | +-------+ +------+---+---+ | Given | 11/11/19 | 4 mg | | | | | 18 10:56 | | | | | | PM PDT | | | | +-------+ +------+---+---+ +---+---+ | | | +---+---+ + +-------+ +-------+---+---+ | tobramycin powder PRN, | Given | 11/07/19 | 1.2 g | | | | Starting 11/06/17 at 1120, | | 18 11:20 | | | | | Intra-op | | AM PDT | | | | + +-------+ +-------+---+---+ +---+---+ | | | +---+---+ + +-------+ +-----+---+ + | vancomycin injection PRN, | Given | 11/07/19 | 1 g | | Hip-Righ | | Starting 11/06/17 at 1120, | | 18 11:20 | | | t | | Intra-op | | AM PDT | | | | + +-------+ +-----+---+ + +---+---+ | | | +---+---+ documented in this encounter
--- OUTSIDE RECORDS SUMMARY | ~2019-11-19 | XMS | Encounter Summary ---
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
--- OUTSIDE RECORDS SUMMARY | ~2019-11-19 | XMS | Encounter Summary ---
Demographics + + + | Address | [address] | | | [place] [address] | + + + | Home Phone | | + + + | Preferred Language | Unknown | + + + | Marital Status | | + + + | Baptist Affiliation | Unknown | + + + | Race | Unknown | + + + | Ethnic Group | Unknown | + + + Author + + + | Author | [facility] [place] | | | and [place] | + + + | Organization | [facility] [place] | | | and [place] [...] Providers + +------+ + | Care Research Geologist Name | Role | Phone | + +------+ + | Yoandy Resendez MD | PCP | | + +------+ + Reason for Visit + + + | Reason | Comments | + + + | Medication Refill | | + + + Encounter Details +--------+--------+ + + + | Date | Type | Department | Care Team | Description | +--------+--------+ + + + | 10/05/ | Refill | [facility] | Leonard Jean Baptiste | Medication Refill | | 2019 | | ORTHOPEDIC SURGERY | [address] | | | | | [address] [facility] | [facility] | | | | | [place], [place] | [place] [address] | | | | | [address] | [phone] | | | | | [phone] | | | +--------+--------+ + + + Social History + +-------+ [...] filedocumented as of this encounter Visit Diagnoses Not on filedocumented in this encounter"
--- OUTSIDE RECORDS SUMMARY | ~2019-11-19 | XMS | Encounter Summary ---
Demographics + + + | Address | [address] | | | [place] [address] | + + + | Home Phone | | + + + | Preferred Language | Unknown | + + + | Marital Status | | + + + | Amish Affiliation | Unknown | + + + | Race | Unknown | + + + | Ethnic Group | Unknown | + + + Author + + + | Author | [facility] [place] | | | and [place] | + + + | Organization | [facility] | | | and [place] | + + + | Address | Unknown | + + + | Phone | Unavailable | + + + Support + + +---------+ + | Name | Relationship | Address | Phone | + + +---------+ + | Venkaetsh Gomez | ECON | Unknown | | + + +---------+ + Care Team Providers + +------+ + | Care Heavy Forger Name | Role | Phone | + +------+ + | Yoandy Resendez MD | PCP | | + +------+ + Encounter Details +--------+ + + + + | Date | Type | Department | Care Team | Description | +--------+ + + + + | 09/24/ | Orders Only | [facility] | Leonard Jean Baptiste | Right hip pain | | 2019 | | ORTHOPEDIC SURGERY | [address] | (Primary Dx); Status | | | | [address] | [address] [place] | post total hip | | | | [place], [place] | [place] [address] | replacement, right | | | | [address] | [phone] | | | | | [phone] | | | +--------+ + + + [...] Not on filedocumented as of this encounter Results XR Hip Right 2-3 [...] | + + | Right hip pain - Primary Pain in joint, pelvic region and thigh | + + | Status post total hip replacement, right | + + documented in this encounter"
--- OUTSIDE RECORDS SUMMARY | ~2019-11-19 | XMS | Encounter Summary ---
Demographics + + + | Address | [address] | | | [place] [address] | + + + | Home Phone | | + + + | Preferred Language | Unknown | + + + | Marital Status | | + + + | Lutheran Affiliation | Unknown | + + + | Race | Unknown | + + + | Ethnic Group | Unknown | + + + Author + + + | Author | [facility] [place] | | | and [place] | + + + | Organization | [facility] [place] | | | and [place] [...] Team Providers + +------+ + | Care Inspector Fabric Name | Role | Phone | + [...] post total hip | | | | [place], [place] | [place] [address] | replacement, right | | | | [address] | [phone] | | | | | [phone] | | | +--------+ + + + [...]
--- OUTSIDE RECORDS SUMMARY | ~2019-11-19 | XMS | Encounter Summary ---
Demographics + + + | Address | [address] | | | [place] [address] | + + + | Home Phone | | + + + | Preferred Language | Unknown | + + + | Marital Status | | + + + | Latter-Day Affiliation | Unknown | + + + | Race | Unknown | + + + | Ethnic Group | Unknown | + + + Author + + + | Author | [facility] [place] | | | and [place] | + + + | Organization | [facility] [place] | | | and [...] Team Providers + +------+ + | Care Paper Cup Machine Operator Name | Role | Phone | [...] Description | +--------+--------+ + + + | 12/29/ | Refill | [facility] [place] | Leonard Jean Baptiste | Medication Refill | | 2018 | | ORTHOPEDIC SURGERY | [address] | | | | | [address] [facility] | [address] [place] | | | | | [place], [place] | [place] [address] | | | | | [address] | [phone] | | | | | [phone] | | | +--------+--------+ + + + [...]
--- OUTSIDE RECORDS SUMMARY | ~2019-11-19 | XMS | Encounter Summary ---
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 Post-op/Phase II | | | | | | + +-------+ +--------+---+---+ +-------+ +--------+---+---+ | Given | 11/09/19 | 100 mg | | | | | 18 8:38 | | | | | | PM PDT | | | | +-------+ +--------+---+---+ | Given | 11/09/19 | 100 mg | | | | | 18 2:38 | | | | | | PM PDT | | | | +-------+ +--------+---+---+ +---+---+ | | | +---+---+ + +-------+ +--------+---+ + | heparin 5,000 units/mL | Given | 11/06/19 | 5,000 | | Abdomen- | | injection 5,000 Units 5,000 | | 18 1:07 | Units | | LLQ | | Units, Subcutaneous, ONCE, Sat | | PM PDT | | | | | 11/05/17 at 1215, For 1 dose, | | | | | | | Pre-op | | | | | | + +-------+ +--------+---+ + +---+---+ | | | +---+---+ + +-------+ +--------+---+---+ | HYDROmorphone (DILAUDID) | Given | 11/08/19 | 0.4 mg | | | | injection 0.2-0.4 mg 0.2-0.4 mg, | | 18 1:37 | | | | | Intravenous, EVERY 1 HOUR PRN, | | AM PDT | | | | | Pain, Starting 11/06/17 at | | | | | | | 1300, If oral route not an | | | | | | | option. Slow IV push, not faster | | | | | | | than 0.3mg/minute. First dose | | | | | | | must be lowest dose, titrate to | | | | | | | effective dose by repeat of | | | | | | | lowest dose every 30 minutes prn | | | | | | | pain, may not exceed maximum dose | | | | | | | ordered per interval. Use Pasero | | | | | | | Sedation Scale., Post-op/Phase | | | | | | | II | | | | | | + +-------+ +--------+---+---+ +-------+ +--------+---+---+ | Given | 11/07/19 | 0.4 mg | | | | | 18 9:14 | | | | | | PM PDT | | | | +-------+ +--------+---+---+ | Given | 11/07/19 | 0.4 mg | | | | | 18 5:29 | | | | | | PM PDT | | | | +-------+ +--------+---+---+ +---+---+ | | | +---+---+ + +-------+ +------+---+---+ | HYDROmorphone (DILAUDID) | Given | 11/07/19 | 1 mg | | | | injection 0.25-1 mg 0.25-1 mg, | | 18 6:00 | | | | | Intravenous, EVERY 2 HOURS PRN, | | AM PDT | | | | | Pain, Starting 11/05/17 at | | | | | | | 1154, Use IV morphine first if | | | | | | | ordered. Slow IV push, not faster | | | | | | | than 0.25 mg/minute. If | | | | | | | ineffective or not tolerated and | | | | | | | unable to take oral opioid - | | | | | | | contact MD., Pre-op | | | | | | + +-------+ +------+---+---+ +-------+ +--------+---+---+ | Given | 11/07/19 | 1 mg | | | | | 18 3:38 | | | | | | AM PDT | | | | +-------+ +--------+---+---+ | Given | 11/07/19 | 0.5 mg | | | | | 18 12:57 | | | | | | AM PDT | | | | +-------+ +--------+---+---+ +---+---+ | | | +---+---+ + +-------+ +-------+---+---+ | ketorolac (TORADOL) injection | Given | 11/07/19 | 15 mg | | | | 15 mg 15 mg, Intravenous, ONCE, | | 18 2:23 | | | | | 11/06/17 at 1330, For 1 dose, | | PM PDT | | | | | If urine output is less than | | | | | | | 240ml/8 hours (30ml/hr) or if | | | | | | | signs of bleeding, contact MD and | | | | | | | hold., Post-op/Phase II | | | | | [...] +-------+---+---+ +---+---+ | | | +---+---+ + +---------+ +---+-------+---+ | lactated ringers (LR) infusion | New Bag | 11/07/19 | | 100 | | | at 100 mL/hr, Intravenous, | | 18 1:15 | | mL/hr | | | CONTINUOUS, Starting 11/06/17 | | PM PDT | | | | | at 1330, Post-op/Phase II | | | | | | + +---------+ +---+-------+---+ +---+---+ | | | +---+---+ + +-------+ [...] | | +---+---+ + +-------+ +------+---+---+ | LORazepam (ATIVAN) injection | Given | 11/07/19 | 1 mg | | | | 1-4 mg 1-4 mg, Intravenous, PRN, | | 18 6:22 | | | | | Withdrawal Symptoms, Starting | | AM PDT | | | | | 11/05/17 at 1805, CIWA less | | | | | | | than 9: No dose, reassess in 4 | | | | | | | hours CIWA 9-14: Give 1 mg, | | | | | | | reassess in 2 hours CIWA 15-20: | | | | | | | Give 2 mg, reassess in 1 hour | | | | | | | CIWA 21-25: Give 3 mg, reassess | | | | | | | in 30 minutes CIWA greater than | | | | | | | 25: 4 mg, reassess in 30 minutes, | | | | | | | | | | | | | + +-------+ +------+---+---+ +-------+ +------+---+---+ | Given | 11/07/19 | 1 mg | | | | | 18 2:10 | | | | | | AM PDT | | | | +-------+ +------+---+---+ | Given | 11/07/19 | 1 mg | | | | | 18 12:00 | | | | | | AM PDT | | | | +-------+ +------+---+---+ +---+---+ | | | +---+---+ + +-------+ +--------+---+---+ | magnesium oxide (MAG-OX) tablet | Given | 11/08/19 | 400 mg | | | | 400 mg 400 mg, Oral, DAILY, | | 18 8:50 | | | | | First dose on Tue11/07/17 at | | AM PDT | | | | | 0900, For 2 doses | | | | | | + +-------+ +--------+---+---+ +---+---+ | | | +---+---+ + +-------+ +--------+---+---+ | magnesium oxide (MAG-OX) tablet | Given | 11/12/19 | 400 mg | | | | 400 mg 400 mg, Oral, DAILY, | | 18 8:03 | | | | | First dose on Tue11/07/17 at 1730 | | AM PDT | [...] +--------+---+---+ +---+---+ | | | +---+---+ + +---------+ +-----+ +---+ | magnesium sulfate 2 g/50 mL | New Bag | 11/09/19 | 2 g | 25 mL/hr | | | IVPB 2 g 2 g, Intravenous, | | 18 3:07 | | | | | Administer over 120 Minutes, | | PM PDT | | | | | ONCE, 11/08/17 at 1500, For 1 | | | | | | | dose, Maximum recommended | | | | | | | infusion rate = 1 gram/hour., | | | | | | + +---------+ +-----+ +---+ +---+---+ | | | +---+---+ + +-------+ +-------+---+---+ | metoprolol succinate | Given | 11/07/19 | 25 mg | | | | (TOPROL-XL) ER tablet 25 mg 25 | | 18 8:21 | | | | | mg, Oral, DAILY, First dose on | | AM PDT | | | | | 11/05/17 at 1215, Tablet may | | | | | | | be cut where scored but do not | | | | | | | crush., Pre-op | | | | | | + +-------+ +-------+---+---+ +-------+ +-------+---+---+ | Given | 11/06/19 | 25 mg | | | | | 18 1:07 | | | | | | PM PDT | | | | +-------+ +-------+---+---+ +---+---+ | | | +---+---+ + +-------+ +------+---+---+ | ondansetron (ZOFRAN ODT) | Given | 11/06/19 | 4 mg | | | | disintegrating tablet 4 mg 4 mg, | | 18 12:48 | | | | | Oral, EVERY 6 HOURS PRN, Nausea, | | PM PDT | | | | | Vomiting, Starting 11/05/17 | | | | | | | at 1154, First line agent, Pre-op | | | | | | + [...] | oxyCODONE (ROXICODONE) tablet | Given | 11/06/19 | 15 mg | | | | 5-15 mg 5-15 mg, Oral, EVERY 3 | | 18 11:13 | | | | | HOURS PRN, Pain, Starting Sat | | PM PDT | | | | | 11/05/17 at 1154, If ineffective | | | | | | | or not tolerated, contact | | | | | | | prescriber, Pre-op | | | | | | + +-------+ +-------+---+---+ +-------+ +-------+---+---+ | Given | 11/06/19 | 10 mg | | | | | 18 5:56 | | | | | | PM PDT | | | | +-------+ +-------+---+---+ | Given | 11/06/19 | 5 mg | | | | | 18 3:28 | | | | | | PM [...] | pantoprazole (PROTONIX) DR | Given | 11/06/19 | 40 mg | | | | tablet 40 mg 40 mg, Oral, DAILY | | 18 1:07 | | | | | BEFORE BREAKFAST, First dose on | | PM PDT | | | | | 11/05/17 at 1215, Do not cut | | | | | | | or crush., Pre-op | | | | | | + [...] +------+---+---+ +---+---+ | | | +---+---+ + +---------+ +--------+-------+---+ | potassium chloride 30 mEq in | New Bag | 11/10/19 | 30 mEq | 88.3 | | | sodium chloride 0.9% 250 mL IVPB | | 18 9:06 | | mL/hr | | | 30 mEq, Intravenous, Administer | | AM PDT | | | | | over 3 Hours, ONCE, [facility] 11/09/17 | | | | | | | at 0815, For 1 dose | | | | | | + +---------+ +--------+-------+---+ +---+---+ | | | +---+---+ + +---------+ +---------+-------+---+ | potassium phosphate 30 mmol in | Bag | 11/09/19 | 30 mmol | 43.3 | | | sodium chloride 0.9% 250 mL IVPB | | 18 2:38 | | mL/hr | | | 30 mmol, Intravenous, Administer | | PM PDT | | | | | over 6 Hours, ONCE, 11/08/17 | | | | | | | at 1430, For 1 dose, For doses | | | | | | | greater than or equal to 33 mMol, | | | | | | | central line administration | | | | | | | preferred. If no central access, | | | | | | | administer peripherally into | | | | | | | large vein. Do not give in | | | | | | | hand/wrist or foot/ankle vein., | | | | | | + +---------+ +---------+-------+---+ +---+---+ | | | +---+---+ + +-------+ +---------+---+---+ | potassium phosphate-sodium | Given | 11/08/19 | 2 | | | | phosphate (K-PHOS NEUTRAL) tablet | | 18 6:56 | tablets | | | | 2 tablet 2 tablet, Oral, ONCE, | | AM PDT | | | | | 11/07/17 at 0715, For 1 dose, | | | | | | | Administer with a full glass of | | | | | | | water. Each tablet contains 250 | | | | | | | mg (8 mmol) elemental phosphorus, | | | | | | | 13 mEq sodium, 1.1 mEq | | | | | | | potassium. Dose in mg and mmol is | | | | | | | based on elemental phosphorous., | | | | | | | | | | | | | + +-------+ +---------+---+---+ +---+---+ | | | +---+---+ + +-------+ + +---+---+ | potassium phosphate-sodium | Given | 11/09/19 | 1 packet | | | | phosphate (PHOS-NAK) packet 1 | | 18 9:02 | | | | | packet 1 packet, Oral, 3 TIMES | | AM PDT | | | | | DAILY, First dose on 11/07/17 | | | | | | | at 2100, Mix with 75 mL water. | | | | | | | Each packet contains 250 mg (8 | | | | | | | mmol) elemental phosphorus, 6.9 | | | | | | | mEq sodium, 7.1 mEq potassium. | | | | | | | Dose in mg and mmol is based on | | | | | | | elemental phosphorous. For | | | | | | | partial doses, reconstitute as | | | | | | | directed, then administer the | | | | | | | dose ordered., | | | | | | + +-------+ + +---+---+ +-------+ + +---+---+ | Given | 11/08/19 | 1 packet | | | | | 18 9:19 | | | | | | PM PDT | | | | +-------+ + +---+---+ +---+---+ | | | +---+---+ + +-------+ [...] +--------+---+---+ +---+---+ | | | +---+---+ + +---------+ +---+-------+---+ | sodium chloride 0.9% (NS) 1,000 | New Bag | 11/06/19 | | 100 | | | mL with adult multivitamin 10 | | 18 1:02 | | mL/hr | | | mL, thiamine (VITAMIN B-1) 100 | | PM PDT | | | | | mg, folic acid 1 mg infusion at | | | | | | | 100 mL/hr, Intravenous, FIXED | | | | | | | VOLUME (see admin instruction), | | | | | | | Starting 11/05/17 at 1245, For | | | | | | | 10 hours, X 1000 ml, | | | | | | + +---------+ +---+-------+---+ +---+---+ | | | +---+---+ + +-------+ +--------+---+---+ | thiamine (VITAMIN B-1) tablet | Given | 11/08/19 | 100 mg | | | | 100 mg 100 mg, Oral, DAILY, | | 18 8:50 | | | | | First dose on 11/05/17 at | | AM PDT | | | | | 1230, For 3 doses | | | | | | + +-------+ +--------+---+---+ +-------+ +--------+---+---+ | Given | 11/07/19 | 100 mg | | | | | 18 2:28 | | | | | | PM PDT | | | | +-------+ +--------+---+---+ | Given | 11/06/19 | 100 mg | | | | | 18 1:08 | | | | | | PM [...] | | +---+---+ + +-------+ +--------+---+---+ | vitamin B-6 tablet 100 mg 100 | Given | 11/08/19 | 100 mg | | | | mg, Oral, DAILY, First dose on | | 18 8:50 | | | | | 11/05/17 at 1230, For 3 doses | | AM PDT | | | | + +-------+ +--------+---+---+ +-------+ +--------+---+---+ | Given | 11/07/19 | 100 mg | | | | | 18 2:29 | | | | | | PM PDT | | | | +-------+ +--------+---+---+ | Given | 11/06/19 | 100 mg | | | | | 18 1:07 | | | | | | PM PDT | | | | +-------+ +--------+---+---+ +---+---+ | | | +---+---+ documented in this encounter
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
--- OUTSIDE RECORDS SUMMARY | ~2019-11-19 | XMS | Encounter Summary ---
Demographics + + + | Address | [address] | | | [place] [address] | + + + | Home Phone | | + + + | Preferred Language | Unknown | + + + | Marital Status | | + + + | Gnosticism Affiliation | Unknown | + + + | Race | Unknown | + + + | Ethnic Group | Unknown | + + + Author + + + | Author | [facility] | | | and [place] | + + + | Organization | [facility] | | | and [place] [...] Team Providers + +------+ + | Care Pattern Stamper Name | Role | Phone | + [...] | | [place] | [place] [address] | | | | | [place] [address] | | | | | | [phone] | | | +--------+ + + + [...]
--- OUTSIDE RECORDS SUMMARY | ~2019-11-19 | XMS | Encounter Summary ---
Demographics + + + | Address | [address] | | | [place] [address] | + + + | Home Phone | | + + + | Preferred Language | Unknown | + + + | Marital Status | | + + + | Taoism Affiliation | Unknown | + + + | Race | Unknown | + + + | Ethnic Group | Unknown | + + + Author + + + | Author | [facility] | | | and [place] | + + + | Organization | [facility] | | | and [...] Team Providers + +------+ + | Care Marketing Segment Manager Name | Role | Phone | + +------+ + | Yoandy Resendez MD | PCP | | + +------+ + Reason for Referral Evaluate & Treat (Routine) +--------+ + + + + + | Status | Reason | Specialty | Diagnoses / | Referred By | Referred To | | | | | Procedures | Contact | Contact | +--------+ + + + + + | Closed | Specialty | Physical | Diagnoses | [facility] | [facility] | | | Services | Therapy | Right hip | [facility] | | | Required | | pain Status | MANA [place] | PHYSICAL | | | | | post total | [address] | [address]APY [address] | | | | | hip | [place] | [facility] | | | | | replacement, | [place], [place] | [place], [place] | | | | | right | [address] | [address] | | | | | | Phone: | Phone: | | | | | | [phone] | [phone] | | | | | | Fax: | Fax: | | | | | | [phone] | [phone] | +--------+ + + + + + Encounter Details +--------+ + + + + | Date | Type | Department | Care Team | Description | +--------+ + + + + | 09/25/ | Orders Only | [facility] | [facility] | Right hip pain | | 2020 | | ORTHOPEDIC SURGERY | [address] | (Primary Dx); Status | | | | [address] | [address] [place] | post total hip | | | | [place], [place] | [place] [address] | replacement, right | | | | [address] | [phone] | | | | | [phone] | | | +--------+ + + + [...] as of this encounter Plan of Treatment + + +--------+ + + | Name | Type | Priori | Associated Diagnoses | Order Schedule | | | | ty | | | + + +--------+ + + | Physical Therapy - | Outpatient | Routin | Right hip pain | Ordered: 09/26/2019 | | Ambulatory Referral | Referral | e | Status post total | | | | | | hip replacement, | | | | | | right | | + + +--------+ + + documented as of this encounter Visit Diagnoses + + | Diagnosis | + + | Right hip pain - Primary Pain in joint, pelvic region and thigh | + + | Status post total hip replacement, right | + + documented in this encounter"
--- OUTSIDE RECORDS SUMMARY | ~2019-11-19 | XMS | Encounter Summary ---
Demographics + + + | Address | [address] | | | [place] [address] | + + + | Home Phone | | + + + | Preferred Language | Unknown | + + + | Marital Status | | + + + | Islam Affiliation | Unknown | + + + | Race | Unknown | + + + | Ethnic Group | Unknown | + + + Author + + + | Author | [facility] | | | and [place] | + + + | Organization | [facility] | | | and [...] Team Providers + +------+ + | Care Molding Line Operator Name | Role | Phone | [...] [address] | | | | | [address] [facility] | [facility] | | | | | [place], [place] | [place] [address] | | | | | [address] | [phone] | | | | | [phone] | | | +--------+--------+ + + + [...]
--- OUTSIDE RECORDS SUMMARY | ~2019-11-19 | XMS | Encounter Summary ---
Demographics + + + | Address | [address] | | | [place] [address] | + + + | Home Phone | | + + + | Preferred Language | Unknown | + + + | Marital Status | | + + + | Baptist Affiliation | Unknown | + + + | Race | Unknown | + + + | Ethnic Group | Unknown | + + + Author + + + | Author | [facility] | | | and [place] | + + + | Organization | [facility] | | | and [place] | [...] Team Providers + +------+ + | Care Obstetrical Nurse Name | Role | Phone | + +------+ + | Yoandy Resendez MD | PCP | | + +------+ + Encounter Details +--------+ + + + + | Date | Type | Department | Care Team | Description | +--------+ + + + + | 11/05/ | Hospital | [facility] | Conversion | Arthralgia of hip, | | 2017 | Encounter | CONVERSION DEP [address] | Transaction, | unspecified | | | | YANNI MUNOZ | Provider Unknown | laterality | | | | [place] | [phone] | | | | | [address] | | | | | | [phone] | | | +--------+ + + + [...] +--------+ + + + | XR HIP LEFT 2-3 | Routin | 11/05/2017 | | Results for this | | VIEWS | e | 10:54 AM | | procedure are in the | | | | PDT | | results section. | + +--------+ + + + documented in this encounter Results XR Hip Left 2-3 Views (11/05/2017 10:54 AM PDT) + + | Specimen | + + | | + + + + + | Narrative | Performed At | + + + | This is a non-reportable procedure without a radiologist report and | | | is used for image storage only | | + + + + + | Procedure Note | + + | Braxton Ellis - 02/07/2019 4:36 PM PDT This is a non-reportable procedure | | without a radiologist report and isused for image storage only | + + documented in this encounter Visit Diagnoses + + | Diagnosis | + + | Arthralgia of hip, unspecified laterality | + + documented in this encounter"
--- OUTSIDE RECORDS SUMMARY | ~2019-11-19 | XMS | Encounter Summary ---
Demographics + + + | Address | [address] | | | [place] [address] | + + + | Home Phone | | + + + | Preferred Language | Unknown | + + + | Marital Status | | + + + | Jehovah'S Witness Affiliation | Unknown | + + + | Race | Unknown | + + + | Ethnic Group | Unknown | + + + Author + + + | Author | [facility] | | | and [place] | + + + | Organization | [facility] | | | and [place] [...] Team Providers + +------+ + | Care Reel Tender Name | Role | Phone | + +------+ + PCP | Unavailable | + +------+ + Encounter Details +--------+ + + + + | Date | Type | Department | Care Team | Description | +--------+ + + + + | 05/12/ | Hospital | [facility] | | | | 2005 | Encounter | [facility] | | | | | | [address] | | | | | | [place] | | | | | | [address] | | | | | | [phone] | | | +--------+ + + + [...]
--- OUTSIDE RECORDS SUMMARY | ~2019-11-19 | XMS | Clinical Summary ---
Demographics + + + | Address | [address] | | | [place] [address] | + + + | Home Phone [...] Team Providers + +------+ + | Care Fringing Machine Operator Name | Role | Phone | + +------+ + PCP | Unavailable | + +------+ + Source Comments SAMUEL is fully live on both [facility] and [facility] InPatient.[facility] Allergies Not on File Medications + [...] | BCBS | xxxxxxxxxxx | 09/26/19 | [phone] | [address] | PPO | | SHIELD | OUT OF | x | 06-Pre | 8 | [address] | | | | STATE | | sent | | [place], | | | | | | | | [place] | | | | | | | | [address] | | + +--------+ +--------+ + +------+ + +--------+ +--------+ + + | Guarantor Name | Accoun | Relation to | Date | Phone | Billing Address | | | t Type | Patient | of | | | | | | | | | | + +--------+ +--------+ + + | Ethel Gomez | Person | Self | [birth year] | [address] | | | al/Fam | | 1976 | [phone] | [place] [address] | | | [place] | | | 4 (Home) | | | | | | | [phone] | | | | | | | [phone] | | | | | | | (Work) | | + +--------+ +--------+ + +
--- OUTSIDE RECORDS SUMMARY | ~2019-11-19 | XMS | Encounter Summary ---
Demographics + + + | Address | [address] | | | [place] [address] | + + + | Home Phone | | + + + | Preferred Language | Unknown | + + + | Marital Status | | + + + | Adventist Affiliation | Unknown | + + + | Race | Unknown | + + + | Ethnic Group | Unknown | + + + Author + + + | Author | [facility] | | | and [place] | + + + | Organization | [facility] | | [...] Team Providers + +------+ + | Care Laboratory Supervisor Name | Role | Phone | + [...] | | IMAGING [address] | [place] | | | | | [place] | [place] [address] | | | | | [place] [address] | | | | | | [phone] | | | +--------+ + + + [...]
--- OUTSIDE RECORDS SUMMARY | ~2019-11-19 | XMS | Encounter Summary ---
Demographics + + + | Address | [address] | | | [place] [address] | + + + | Home Phone [...] | Author | [facility] | | | and [place] | + + + | Organization | [facility] | | | and [place] [...] Team Providers + +------+ + | Care Lawn Care Professional Name | Role | Phone | + +------+ + | Yoandy Resendez MD | PCP | | + +------+ + Encounter Details +--------+ + + + + | Date | Type | Department | Care Team | Description | +--------+ + + + + | 11/08/ | Imaging | [facility] | Provider, | | | 2018 | Exam | [facility] | [address] | | | | | IMAGING [address] | [address] | | | | | [place] | [place] [address] | | | | | [place] [address] | | | | | | [phone] | | | +--------+ + + + [...] + documented in this encounter Results XR Chest 1 Vw (11/05/2017 8:50 AM [...]
--- OUTSIDE RECORDS SUMMARY | ~2019-11-19 | XMS | Clinical Summary ---
Demographics + + + | Address | [address] | | | [place] [address] | + + + | Home Phone | | + + + | Preferred Language | Unknown | + + + | Marital Status | | + + + | Gnosticist Affiliation | Unknown | + + + [...] Team Providers + +------+ + | Care Quality Assurance Monitor Final Name | Role | Phone | + +------+ + PCP | Unavailable | + +------+ + Source Comments SAMUEL is fully live on both [facility] and [facility] InPatient.[facility] Allergies Not on File Medications [...] | BCBS | xxxxxxxxxxx | 09/26/19 | [phone] | [address] | PPO | | SHIELD | OUT OF | x | 06-Pre | 8 | [address] | | | | STATE | | sent | | [place], | | | | | | | | [place] | | | | | | | | [address] | | + +--------+ +--------+ + +------+ + +--------+ +--------+ + + | Guarantor Name | Accoun | Relation to | Date | Phone | Billing Address | | | t Type | Patient | of | | | | | | | | | | + +--------+ +--------+ + + | Ethel Gomez | Person | Self | [birth year] | [address] | | | al/Fam | | 1976 | [phone] | [place] [address] | | | [place] | | | 4 (Home) | | | | | | | [phone] | | | | | | | [phone] | | | | | | | (Work) | | + +--------+ +--------+ + +
--- OUTSIDE RECORDS SUMMARY | ~2019-11-19 | XMS | Encounter Summary ---
Demographics + + + | Address | [address] | | | [place] [address] | + + + | Home Phone | | + + + | Preferred Language | Unknown | + + + | Marital Status | | + + + | Scientology Affiliation | Unknown | + + + | Race | Unknown | + + + | Ethnic Group | Unknown | + + + Author + + + | Author | [facility] | | | and [place] | + + + | Organization | [facility] | | | and [place] [...] Team Providers + +------+ + | Care Repairer Art Objects Name | Role | Phone | + +------+ + | Yoandy Resendez MD | PCP | | + +------+ + Encounter Details +--------+ + + + + | Date | Type | Department | Care Team | Description | +--------+ + + + + | 01/13/ | Hospital | [facility] | Leonard Jean Baptiste | Status post total | | 2018 | Encounter | [facility] | [address] | hip replacement, | | | | [address] [place] | [address] [place] | right; Right hip | | | | [place], [place] | [place] [address] | pain | | | | [address] | [phone] | | | | | [phone] | | | +--------+ + + + [...] + + + +---------+ + + | ibuprofen (ADVIL, | Take by mouth. | | 0 | | | | MOTRIN) | | | | | 0 | + + + +---------+ [...] tablet by | 50 | 0 | 01/14/20 | | | 50 mg tablet | mouth every 6 hours | tablet | | 18 | 0 | | | as needed. | | | | | + + [...] XR HIP RIGHT 2-3 | Routin | 01/13/2018 | Status post total | Results for this | | VIEWS | e | 10:23 AM | hip replacement, | procedure are in the | | | | PDT | right Right hip | results section. | | | | | pain | | + +--------+ + + + documented in this encounter Results XR Hip Right 2-3 Views (01/13/2018 10:23 AM PDT) + + | Specimen | + + | | + + + + + | Narrative | Performed At | + + + | XR HIP RIGHT 2-3 VIEWS 01/13/2018 10:23 AM HISTORY: S/P RIGHT | [facility] | | TOTAL HIP ARTHROPLASTY DOS 11/06/17. COMPARISON: 11/05/2017. | | | FINDINGS: There is hardware for right hip arthroplasty that is intact | | | with no evidence for loosening. Bone mineralization is normal. | | | Visualized pelvis demonstrates no acute findings. Soft tissue | | | structures are unremarkable. IMPRESSION - Intact right hip | | | arthroplasty. Dictated and Signed by: Venkatesh Anderson MD | | | Electronically signed: 01/13/2018 10:47 AM | | + + + + + | Procedure Note | + + | Caleb, Rad Results In - 01/13/2018 10:50 AM PDT XR HIP RIGHT 2-3 VIEWS 01/13/2018 10:23 | | AMHISTORY: S/P RIGHT TOTAL HIP ARTHROPLASTY DOS 11/06/17.COMPARISON: | | 11/05/2017.FINDINGS:There is hardware for right hip arthroplasty that is intact with no | | evidence forloosening. Bone mineralization is normal. Visualized pelvis demonstrates | | noacute findings. Soft tissue structures are unremarkable.IMPRESSION -Intact right hip | | arthroplasty. Dictated and Signed by: Venkatesh Anderson MD Electronically signed: 01/13/2018 | | 10:47 AM | |There is hardware for right hip arthroplasty that is intact with no evidence for | |loosening. Bone mineralization is normal. Visualized pelvis demonstrates no | |acute findings. Soft tissue structures are unremarkable. | | | |IMPRESSION - | |Intact right hip arthroplasty. | | | |Dictated and Signed by: Venkatesh Anderson MD | | Electronically signed: 01/13/2018 10:47 AM | + + + +---------+ + + | Performing | Address | City/State/Zipcode | Phone Number | | Organization | | | | + +---------+ + + | [facility] | | | | + +---------+ + + documented in this encounter Visit Diagnoses + + | Diagnosis | + + | Status post total hip replacement, right | + + | Right hip pain Pain in joint, pelvic region and thigh | + + documented in this encounter"
--- OUTSIDE RECORDS SUMMARY | ~2019-11-19 | XMS | Encounter Summary ---
Demographics + + + | Address | [address] | | | [place] [address] | + + + | Home Phone | | + + + | Preferred Language | Unknown | + + + | Marital Status | | + + + | Roman Catholic Affiliation | Unknown | + + + | Race | Unknown | + + + | Ethnic Group | Unknown | + + + Author + + + | Author | [facility] | | | and [place] | + + + | Organization | [facility] | | | and [place] [...] Team Providers + +------+ + | Care Steam Brush Operator Name | Role | Phone | [...] | | [address] | [place] [address] | | | | | [place] [address] | | | | | | [phone] | | | +--------+ + + + [...]
--- OUTSIDE RECORDS SUMMARY | ~2019-11-19 | XMS | Clinical Summary ---
Demographics + + + | Address | [address] | | | [place] [address] | + + + | Home Phone | | + + + | Preferred Language | Unknown | + + + | Marital Status | | + + + | Sikhism Affiliation | Unknown | + + + | Race | Unknown | + + + | Ethnic Group | Unknown | + + + Author + + + | Author | [facility] | | | and [place] | + + + | Organization | [facility] | | | [...] Providers + +------+ + | Care Quality Coordinator Name | Role | Phone | [...] | | + + + +---------+------+------+-------+ | MELOXICAM PO | Take by mouth. | | 0 | | | Activ | | | | | | | | e | + + + +---------+------+------+-------+ | omeprazole | Take 10 mg by mouth | | 0 | | | Activ | | (PRILOSEC) 10 mg | every morning | | | | | e | | capsule | (before breakfast). | | | | | | + + + +---------+------+------+-------+ | traMADol (ULTRAM) | Take 1 tablet by | 50 | 0 | 09/25 | | Activ | | 50 mg tablet | mouth every 6 hours | tablet | | 09/13 | | e | | | as needed for Pain. | | | 20 | | | + + + +---------+------+------+-------+ [...] | 8 | + + + + Encounters +--------+ + + + + | Date | Type | Specialty | Care Team | Description | +--------+ + + + + | 10/05/ | Refill | Orthopedic Surgery | Leonard [facility] Baptiste | Medication Refill | | 2019 | | | [facility] [place] | | +--------+ + + + + | 09/25/ | Orders Only | Orthopedic Surgery | Leonard Jean Baptiste | Right hip pain | | 2019 | | | [place] | (Primary Dx); Status | | | | | | post total hip | | | | | | replacement, right | +--------+ + + + + | 09/24/ | Hospital | Radiology | Leonard Jean Baptiste | Right hip pain; | | 2019 | Encounter | | [address] | Status post total | | | | | | hip replacement, | | | | | | right | +--------+ + + + + | 09/24/ | Office | Orthopedic Surgery | Leonadr Jean Baptiste | Strain of lumbar | | 2019 | Visit | | [place] | region, initial | | | | | | encounter (Primary | | | | | | Dx); Greater | | | | | | trochanteric | | | | | | bursitis of right | | | | | | hip | +--------+ + + + + | 09/24/ | Orders Only | Orthopedic Surgery | Leonard [facility] Baptiste | Right hip pain | | 2019 | | | [address] | (Primary Dx); Status | | | | | | post total hip | | | | | | replacement, right | +--------+ + + + + from Last 3 Months Immunizations + + + + | Name | Administration Dates | Next Due | + + + + | INFLUENZA PF 4Y OR | 05/10/2019 | | | >,QUAD DERIVED FROM | | | | TISS-CULT | | | + + + + | INFLUENZA PF | 03/26/2018, 07/19/2017 | | | TRIVALENT(PED/ADOL/A | | | | DULT), PSKT | | | + + + + | INFLUENZA TRIV | 03/21/2013, 02/24/2012 | | | W/PRES(PED/ADOL/ADUL | | | | T),MULTIDOSE | | | + + + + | INFLUENZA, [id number], | 06/14/2009 | | | LIVE ATTENUATED | | | + + + + | INFLUENZA, | 03/20/2009, 04/23/2008 | | | UNSPECIFIED | | | | FORMULATION | | | + + + + | TD PF (2 LF TETANUS) | 02/05/2003 | | | (ADOL/ADULT) | | | + + + + | TDAP, (ADOL/ADULT) | 02/24/2012 | | + + + + Social [...] | | | | Pneumococcal 19-64 | 2 | | | | (1 of 1 - PPSV23) | | | | + + + + + | Cervical Cancer | | | | | Screening (Pap) | 6 | | | + + + + + | Urine Drug Screening | | 11/05/2017 | | | | 9 | | | + + + + + | Vaccine: | | 02/24/2012, 02/05/2003 | | | Dtap/Tdap/Td (2 - | 2 | | | | Td) | | | | + + + + + | Vaccine: Influenza | Completed | 05/10/2019, 03/26/2018, | | | | | 07/19/2017, Additional history | | | | | exists | | + + + + + [...] | JORGE - | | 10/18/ | | | Sn/AImplanted: Qty: 1 on | c | Hip | ZIMM | | 2027 | 662 | | 11/06/2017 by Bernabe, | | | | | | /N/A | | Ryan Rios MD at [facility] | | | | | | /[id number] | | [facility] | | | | | | 08 | | CENTER | | | | | | | + +--------+--------+ +--------+--------+--------+ | Liner Cocr Dl Mob 40mm D - | Generi | Right: | JORGE - | | 07/25/ | [id number] | | Sn/AImplanted: Qty: 1 on | c | Hip | ZIMM | | 2027 | 462 | | 11/06/2017 by Bernabe, | | | | | | /N/A | | Ryan Rios MD at [facility] | | | | | | /[id number] | | [facility] | | | | | | 0 | | CENTER | | | | | | | + +--------+--------+ +--------+--------+--------+ | Imp Hip Acet Lnr E-Ply | Generi | Right: | JORGE - | | 09/22/ | EP-[id number] | | [id number] - Sn/AImplanted: Qty: | c | Hip | ZIMM | | 2022 | 146 | | 1 on 11/06/2017 by | | | | | | /N/A | | Ryan Kidd MD at | | | | | | /[id number] | | [facility] | | | | | | 0 | | [facility] | | | | | | | + +--------+--------+ +--------+--------+--------+ | Imp Hip Fem Hd Crmx 28 Pls8.5 | Generi | Right: | JJHCS DEPUY | | 02/24/ | [id number] | | - Sn/AImplanted: Qty: 1 on | c | Hip | ORTHO - | | 2021 | 8-330 | | 11/06/2017 by Bernabe, | | | PAVANU | | | /N/A | | Ryan Rios MD at [facility] | | | | | | /[id number] | | [facility] | | | | | | 37 | | CENTER | | | | | | | + +--------+--------+ +--------+--------+--------+ | Imp Hip Fem Stem Actis Std | Generi | Right: | JJHCS DEPUY | | 10/24/ | [id number] | | Sz4 - Sn/AImplanted: Qty: 1 | c | Hip | ORTHO - | | 2026 | 040 | | on 11/06/2017 by Bernabe, | | | DEPU | | | /N/A | | Ryan Rios MD at [facility] | | | | | | /[id number] | | [facility] | | | | | | 8 | | CENTER | | | | | | | + +--------+--------+ +--------+--------+--------+ Procedures + +--------+ + + + | [...] | | + +--------+ + + + from Last 3 Months Results XR Hip Right 2-3 Views (09/25/2019 [...] | | | + +---------+ + + from Last 3 Months Insurance + +--------+ +--------+ [...] | [employer] | [employer] | [id number] | | [phone] | | [employer] | | MEDICAID HMO [...] Person | Self | [birth year] | | [address] | | | al/Fam | | 1976 | [phone] | [place] [address] | | | [place] | | | 4 (Home) | | + +--------+ +--------+ + + Advance Directives + + + + + | Type | Date Recorded | Patient | Explanation | | | | Configuration Management Specialist | | + + + + + | Power of | | | | | Photo Producer | | | | + + + + + | Advance | 11/06/2017 6:01 | | | | Directive | PM | | | + + + + + + + + + + | Code Status | Date | Date | Comments | | | Activated | Inactivated | | + + + + + | Full Code | 11/06/2017 | 11/11/2017 | | | | 1:44 PM | 2:02 PM | | + + + + + + + + +---+ | | | | | + + + +---+ | Full Code | 11/05/2017 | 11/06/2017 | | | | 11:54 AM | 12:59 PM | | + + + +---+
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
--- OUTSIDE RECORDS SUMMARY | ~2019-11-19 | XMS | Encounter Summary ---
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 | Radha, | | | 2018 | Event | MED [facility] OP | Tiesha Rios MD | | | | | [address] | [address] | | | | | [place] | [place] | | | | | [phone] | [id number] | | | | | [phone] | | | +--------+ + + + + Anesthesia Record + + + + + | Procedure Name | Responsible | Anesthesia Start | Anesthesia Stop Time | | | Anesthesiologist | Time | | + + + + + | RIGHT TOTAL HIP | Tiesha Rios | 11/06/17 0950 | 11/06/17 1202 | | ARTHROPLASTY, | MD Radha | | | | ANTERIOR APPROACH | | | | | (Right Hip) | | | | + + + + + +----+---+ + + | Da | T | Event | Comment | | te | i | | | | | m | | | | | e | | | +----+---+ + + | 05 | 0 | | | | /1 | 9 | | | | 3/ | 4 | | | | 20 | 2 | | | | 18 | | | | +----+---+ + + | | 0 | An Checkout | Pre-use anesthesia machine/equipment checkout. | | | 9 | | | | | 5 | | | | | 0 | | | +----+---+ + + | | 0 | An Start | Reassessment prior to anesthesia induction/procedure. | | | 9 | | | | | 5 | | | | | 0 | | | +----+---+ + + | | 0 | Preoxygenat | | | | 9 | ed | | | | 5 | | | | | 6 | | | +----+---+ + + | | 0 | An | | | | 9 | Induction | | | | 5 | | | | | 9 | | | +----+---+ + + | | 0 | An | | | | 9 | Intubation | | | | 5 | | | | | 9 | | | +----+---+ + + | | 1 | Block Start | | | | 0 | | | | | 0 | | | | | 3 | | | +----+---+ + + | | 1 | AN Block | | | | 0 | End | | | | 1 | | | | | 3 | | | +----+---+ + + | | 1 | Pre-Procedu | | | | 0 | ral Timeout | | | | 3 | Completed | | | | 0 | | | +----+---+ + + | | 1 | [place] | | | | 0 | 43-degrees | | | | 3 | | | | | 0 | | | +----+---+ + + | | 1 | First | | | | 0 | Inc/Proc St | | | | 3 | | | | | 0 | | | +----+---+ + + | | 1 | [place] off | | | | 1 | | | | | 4 | | | | | 0 | | | +----+---+ + + | | 1 | Breathing | | | | 1 | Spontaneous | | | | 4 | ly | | | | 0 | | | +----+---+ + + | | 1 | an stop | | | | 1 | data | | | | 4 | | | | | 0 | | | +----+---+ + + | | 1 | an tavia now | In pacu, with patient and full monitors. waiting for PACU nurses | | | 1 | | to arrive | | | 4 | | | | | 9 | | | +----+---+ + + | | 1 | Extubated | | | | 1 | Awake | | | | 5 | | | | | 8 | | | +----+---+ + + | | 1 | An Stop | Patient handed off to recovery nurse. | | | 0 | | | | | 2 | | | +----+---+ + + +------+ | Meds | +------+ + + + | Name | Total | + + + | midazolam | 2 mg | + + + | lidocaine 2% | 40 mg | + + + | fentaNYL | 100 mcg | + + + | propofol | 150 mg | + + + | propofol | 94.34 mg | + + + | ondansetron | 4 mg | + + + | dexamethasone (PF) injection 10 | 10 mg | | mg/mL | | + + + | Phenylephrine 100mcg/mL SYRINGE | 200 mcg | + + + | ropivacaine 0.5% | 20 mL | + + + | ceFAZolin (ANCEF, KEFZOL) 100 | 2 g | | mg/mL IV syringe 2 g | | + + + | tranexamic acid | 1,500 mg | + + + | dexmedetomidine (Bolus) | 20 mcg | + + + | magnesium sulfate | 2 g | + + + | HYDROmorphone | 0.4 mg | + + + | LR (Infusion) | 1,800 mL | + + + + + | Name | + + | N2O Flow Rate (L/Min) | + + | O2 Flow Rate (L/Min) | + + | Insp O2 | + + | Exp SEV | + + | Air Flow Rate (L/Min) | + + + + | No blood administrations on file. | + + +--------+ + + + | Type | Details | Placement | Removal | +--------+ + + + | Periph | 11/05/17; 1847; yes; Left; | 11/05/171847 by | 11/07/17 1000 by | | eral | Distal; Wrist; 20 gauge; site | Faisalkayla Brady | Milena Alba RN | | IV | symptomatic, catheter/device | JOO Murphy | | | | intact; 11/07/17; 1000 | | | +--------+ + + + | Periph | 11/05/171847; Right; Distal; | 11/05/171847 by | 11/11/17 104 by | | eral | Wrist; 20 gauge; distraction; no | Yogesh Brady | Rossi Bryan | | IV | longer indicated; healing within | JOO Murphy | JOO Bang | | | expectations; 11/11/17; 1049 | | | +--------+ + + + | Urethr | 11/05/171848; yes; required for | 11/05/171848 by | 11/08/17 06 by | | al | prolonged immobilization due to | Rachealyoliekayla Brady | Krystle Grady | | Cathet | unstable fractures; indwelling | JOO Murphy | JOO Putnam | | er | single lumen catheter; healing | | | | | within expectations; 11/08/17; | | | | | 0600 | | | +--------+ + + + | Airway | Placement Date: 11/06/17; | 11/06/17 1000 by | 11/06/17 1158 by | | | Placement Time: 1000 (created via | Tiesha Rios | Tiesha Rios | | | procedure documentation); Mask | MD Radha | MD Radha | | | Ventilation: EZ; Attempts: 1; | | | | | Airway Type: laryngeal mask; | | | | | Size: 4; Trauma: none; Placement | | | | | Check: bilateral chest rise, | | | | | breath sounds equal bilaterally; | | | | | Removal Date: 11/06/17; Removal | | | | | Time: 1158 | | | +--------+ + + + | Read | 11/06/17; 1221; Right; hip; | 11/06/17 1221 by | 11/11/17 1050 by | | only - | healing within expectations; | Robin Milligan RN | Rossi Bryan | | | 11/11/17; 1050 | | JOO Bang | | Incisi | | | | | on | | | | +--------+ + + + documented in this encounter Social History + +-------+ +--------+------+ | Tobacco [...] | + +--------+ + + + | ANE NERVE BLOCK | Routin | 11/06/2017 | | Results for this | | CATHETER NOTE | e | 10:21 AM | | procedure are in the | | | | PDT | | results section. | + +--------+ + + + | ANE NERVE BLOCK | Routin | 11/06/2017 | | Results for this | | CATHETER NOTE | e | 10:20 AM | | procedure are in the | | | | PDT | | results section. | + +--------+ + + + | ANE AIRWAY NOTE | Routin | 11/06/2017 | | Results for this | | | e | 10:19 AM | | procedure are in the | | | | PDT | | results section. | + +--------+ + + + documented in this encounter Results Anesthesia Perineural Note (11/06/2017 10:21 AM PDT) + + + | Narrative | Performed At | + + + | Tiesha Garcia MD 11/06/2017 10:24 Perineural | | | Procedure Note 11/06/2017 10:10 Nerve block: obturator | | | Laterality: right Provider requested procedure: recio | | | Indication: postoperative analgesia Preprocedure check: patient | | | identified, procedure and rescue equipment checked, preevaluation | | | including airway assessment complete, risks/benefits discussed, | | | consent obtained, timeout performed, reassessment prior to | | | procedure, monitors applied and supplemental oxygen applied Patient | | | position: supine Preparation: chlorhexidine/isopropyl alcohol Local | | | anesthetic infiltration volume in ml: 0 mL Technique: ultrasound | | | Radiology image stored in patient's chart: ultrasound Needle: | | | stimulating and insulated Needle size: 21 g Needle length: 4 in | | | Medication administered through: needle Negative findings: no blood | | | aspirated Total volume of local anesthetic solution administered: 10 | | | (Incremental injection in 3-4 mL increments with negative aspiration | | | each time.) mL Attempts: 1 Ease of procedure: easy Comments: | | | Block placed under GA due to patient's co-morbidities and | | | psychiatric comfort. Regional block placed for postoperative pain | | | control at request of patient and surgeon. Ultrasound utilized | | | throughout entirety of procedure for the purposes of directing the | | | needle to nerve proximity and watching spread of local anesthetic. | | | Positive level and "donut" sign. Ultrasound image in chart. | | | NIBP/SpO2 monitoring. Please see anesthesia record or | | | flowsheet for vital sign documentation and see anesthesia record or | | | MAR for all medication documentation. Performing provider: | | | TIESHA GARCIA Electronically Signed by: MD Josey Hollis date/time: | | | 11/06/2017 10:21 | | + + + + + | Procedure Note | + + | Tiesha Garcia MD - 11/06/2017 10:21 AM PDT Perineural Procedure | | Note11/06/2017 10:10Nerve block: obturatorLaterality: rightProvider requested procedure: | | hendersonIndication: postoperative analgesiaPreprocedure check: patient identified, | | procedure and rescue equipment checked, preevaluation including airway assessment | | complete, risks/benefits discussed, consent obtained, timeout performed, reassessment | | prior to procedure, monitors applied and supplemental oxygen appliedPatient position: | | supinePreparation: chlorhexidine/isopropyl alcoholLocal anesthetic infiltration volume | | in ml: 0 mLTechnique: ultrasoundRadiology image stored in patient's chart: | | ultrasoundNeedle: stimulating and insulatedNeedle size: 21 gNeedle length: 4 | | inMedication administered through: needleNegative findings: no blood aspiratedTotal | | volume of local anesthetic solution administered: 10 (Incremental injection in 3-4 mL | | increments with negative aspiration each time.) mLAttempts: 1Ease of procedure: | | easyComments: Block placed under GA due to patient's co-morbidities and psychiatric | | comfort. Regional block placed for postoperative pain control at request of patient and | | surgeon. Ultrasound utilized throughout entirety of procedure for the purposes of | | directing the needle to nerve proximity and watching spread of local anesthetic. | | Positive level and "donut" sign. Ultrasound image in chart. NIBP/SpO2 | | monitoring.Please see anesthesia record or flowsheet for vital sign documentation and | | see anesthesia record or MAR for all medication documentation.Performing provider: | | TIESHA GARCIA LElectronically Signed by: Tiesha Garcia MD | | ESig date/time: 11/06/2017 10:21 | |Ease of procedure: easy | | | |Comments: Block placed under GA due to patient's co-morbidities and psychiatric comfort. Re gional block placed for postoperative pain control at request of patient and surgeon. Ultra sound utilized throughout | |entirety of procedure for the purposes of directing the needle to nerve proximity and watch ing spread of local anesthetic. Positive level and "donut" sign. Ultrasound image in chart . NIBP/SpO2 monitoring. | | | | | |Please see anesthesia record or flowsheet for vital sign documentation and see anesthesia r ecord or MAR for all medication documentation. | | | | | |Performing provider: TIESHA GARCIA | | | | | | | |Electronically Signed by: Tiesha Garcia MD ESig date/time: 10:21 | + + Anesthesia Perineural Note (11/06/2017 10:20 AM PDT) + + + | Narrative | Performed At | + + + | Tiesha Garcia MD 11/06/2017 10:21 Perineural | | | Procedure Note 11/06/2017 10:10 Nerve block: femoral Laterality: | | | right Provider requested procedure: Bernabe Indication: | | | postoperative analgesia Preprocedure check: patient identified, | | | procedure and rescue equipment checked, preevaluation including | | | airway assessment complete, risks/benefits discussed, consent | | | obtained, timeout performed, reassessment prior to procedure, | | | monitors applied and supplemental oxygen applied Patient position: | | | supine Preparation: chlorhexidine/isopropyl alcohol Technique: | | | ultrasound Radiology image stored in patient's chart: ultrasound | | | Needle: stimulating and insulated Needle size: 21 g Needle length: 4 | | | in Medication administered through: needle Negative findings: no | | | blood aspirated Total volume of local anesthetic solution | | | administered: 0 (Incremental injection in 3-4 mL increments with | | | negative aspiration each time.) mL Attempts: 1 Ease of procedure: | | | easy Comments: Block placed under GA due to patient's | | | co-morbidities and psychiatric comfort. Regional block placed for | | | postoperative pain control at request of patient and surgeon. | | | Ultrasound utilized throughout entirety of procedure for the | | | purposes of directing the needle to nerve proximity and watching | | | spread of local anesthetic. Positive level and "donut" sign. | | | Ultrasound image in chart. NIBP/SpO2 monitoring. Please see | | | anesthesia record or flowsheet for vital sign documentation and see | | | anesthesia record or MAR for all medication documentation. | | | Performing provider: TIESHA GARCIA Electronically | | | Signed by: Tiesha Garcia MD | | | ESig date/time: 11/06/2017 10:20 | | + + + + + | Procedure Note | + + | Tiesha Garcia MD - 11/06/2017 10:20 AM PDT Perineural Procedure | | Note11/06/2017 10:10Nerve block: femoralLaterality: rightProvider requested procedure: | | HendersonIndication: postoperative analgesiaPreprocedure check: patient identified, | | procedure and rescue equipment checked, preevaluation including airway assessment | | complete, risks/benefits discussed, consent obtained, timeout performed, reassessment | | prior to procedure, monitors applied and supplemental oxygen appliedPatient position: | | supinePreparation: chlorhexidine/isopropyl alcoholTechnique: ultrasoundRadiology image | | stored in patient's chart: ultrasoundNeedle: stimulating and insulatedNeedle size: 21 | | gNeedle length: 4 inMedication administered through: needleNegative findings: no blood | | aspiratedTotal volume of local anesthetic solution administered: 0 (Incremental | | injection in 3-4 mL increments with negative aspiration each time.) mLAttempts: 1Ease of | | procedure: easyComments: Block placed under GA due to patient's co-morbidities and | | psychiatric comfort. Regional block placed for postoperative pain control at request of | | patient and surgeon. Ultrasound utilized throughout entirety of procedure for the | | purposes of directing the needle to nerve proximity and watching spread of local | | anesthetic. Positive level and "donut" sign. Ultrasound image in chart. NIBP/SpO2 | | monitoring.Please see anesthesia record or flowsheet for vital sign documentation and | | see anesthesia record or MAR for all medication documentation.Performing provider: | | TIESHA GARCIA LElectronically Signed by: Tiesha Garcia MD | | ESig date/time: 11/06/2017 10:20 | |Ease of procedure: easy | | | |Comments: Block placed under GA due to patient's co-morbidities and psychiatric comfort. Re gional block placed for postoperative pain control at request of patient and surgeon. Ultra sound utilized throughout | |entirety of procedure for the purposes of directing the needle to nerve proximity and watch ing spread of local anesthetic. Positive level and "donut" sign. Ultrasound image in chart . NIBP/SpO2 monitoring. | | | | | |Please see anesthesia record or flowsheet for vital sign documentation and see anesthesia r ecord or MAR for all medication documentation. | | | | | |Performing provider: TIESHA GARCIA | | | | | | | |Electronically Signed by: Tiesha Garcia MD ESinova date/time: 10:20 | + + Anesthesia Airway Note (11/06/2017 10:19 AM PDT) + + + | Narrative | Performed At | + + + | Tiesha Garcia MD 11/06/2017 10:20 Anesthesia Airway | | | Placement 11/06/2017 10:00 Preprocedure check: patient identified, | | | suction, airway equipment checked, oxygen, airway assessed and | | | patient reassessment prior to induction Mask ventilation: easy | | | Attempts: 1 Airway type: laryngeal mask Size: 4 Cuffed: cuffed | | | Route, reference point: center of mouth Tube secured with: adhesive | | | tape Trauma: none Tube placement verification: bilateral chest rise | | | and equal bilateral breath sounds Performing provider: RADHA | | | TIESHA Rios Electronically Signed by: Tiesha Garcia | | | ESig date/time: | | | 11/06/2017 10:19 | | + + + + + | Procedure Note | + + | Tiesha Garcia MD - 11/06/2017 10:19 AM PDT Anesthesia Airway | | Placement11/06/2017 10:00Preprocedure check: patient identified, suction, airway | | equipment checked, oxygen, airway assessed and patient reassessment prior to | | inductionMask ventilation: easyAttempts: 1Airway type: laryngeal maskSize: 4Cuffed: | | cuffedRoute, reference point: center of mouthTube secured with: adhesive tapeTrauma: | | noneTube placement verification: bilateral chest rise and equal bilateral breath | | soundsPerforming provider: TIESHA GARCIA LElectronically Signed by: Tiesha | | MD Josey Rendon date/time: 11/06/2017 10:19 | |Cuffed: cuffed | |Route, reference point: center of mouth | |Tube secured with: adhesive tape | |Trauma: none | |Tube placement verification: bilateral chest rise and equal bilateral breath sounds | |Performing provider: TIESHA GARCIA | | | | | |Electronically Signed by: MD Josey Hilliard date/t jennifer: 11/06/2017 10:19 | | | + + documented in this encounter Visit Diagnoses Not on filedocumented in this encounter Administered Medications + +--------+ +------+------+------+ | Medication Order | MAR | Action | Dose | Rate | Site | | | Action | Date | | | | + +--------+ +------+------+------+ | ceFAZolin (ANCEF, KEFZOL) 100 | Given | 11/07/19 | 2 g | | | | mg/mL IV syringe 2 g 2 g, | | 18 10:23 | | | | | Intravenous, Administer over 30 | | AM PDT | | | | | Minutes, Prior to Incision, | | | | | | | Starting 11/05/17 at 2320, For | | | | | | | 1 dose, Give within one hour | | | | | | | prior to incision., Pre-op, | | | | | | | Indications: Surgical Prophylaxis | | | | | | + +--------+ +------+------+------+ +---+---+ | | | +---+---+ + +-------+ +-------+---+---+ | dexamethasone (PF) 10 mg/mL | Given | 11/07/19 | 10 mg | | | | injection Intravenous, PRN, | | 18 10:27 | | | | | Starting 11/06/17 at 1027, | | AM PDT | | | | | Anesthesia Intra-op | | | | | | + +-------+ +-------+---+---+ +---+---+ | | | +---+---+ + +-------+ +--------+---+---+ | dexmedetomidine (PRECEDEX) in | Given | 11/07/19 | 20 mcg | | | | sodium chloride bolus infusion | | 18 10:41 | | | | | Intravenous, PRN, Starting Sun | | AM PDT | | | | | 11/06/17 at 1041, Anesthesia | | | | | | | Intra-op | | | | | | + +-------+ +--------+---+---+ +---+---+ | | | +---+---+ + +-------+ +--------+---+---+ | fentaNYL (PF) injection | Given | 11/07/19 | 25 mcg | | | | Intravenous, PRN, Pain, Starting | | 18 10:58 | | | | | 11/06/17 at 0958, Anesthesia | | AM PDT | | | | | Intra-op | | | | | | + +-------+ +--------+---+---+ +-------+ +--------+---+---+ | Given | 11/07/19 | 25 mcg | | | | | 18 10:41 | | | | | | AM PDT | | | | +-------+ +--------+---+---+ | Given | 11/07/19 | 50 mcg | | | | | 18 9:58 | | | | | | AM PDT | | | | +-------+ +--------+---+---+ +---+---+ | | | +---+---+ + +-------+ +--------+---+---+ | HYDROmorphone (DILAUDID) 2 | Given | 11/07/19 | 0.4 mg | | | | mg/mL injection Intravenous, | | 18 11:09 | | | | | PRN, Pain, Starting 11/06/17 | | AM PDT | | | | | at 1109, Anesthesia Intra-op | | | | | | + +-------+ +--------+---+---+ +---+---+ | | | +---+---+ + +---------+ +---+---+---+ | lactated ringers (LR) infusion | New Bag | 11/07/19 | | | | | Intravenous, CONTINUOUS PRN, | | 18 9:41 | | | | | Starting Tue11/06/17 at 0941, | | AM PDT | | | | | Anesthesia Intra-op | | | | | | + +---------+ +---+---+---+ +---+---+ | | | +---+---+ + +-------+ +-------+---+---+ | lidocaine (PF) 2% injection | Given | 11/07/19 | 40 mg | | | | Intravenous, PRN, Starting Tue | | 18 9:58 | | | | | 11/06/17 at 0958, Anesthesia | | AM PDT | | | | | Intra-op | | | | | | + +-------+ +-------+---+---+ +---+---+ | | | +---+---+ + +-------+ +-----+---+---+ | magnesium sulfate 500 mg/mL | Given | 11/07/19 | 2 g | | | | injection Intravenous, PRN, | | 18 10:46 | | | | | Starting 11/06/17 at 1046, | | AM PDT | | | | | Anesthesia Intra-op | | | | | | + +-------+ +-----+---+---+ +---+---+ | | | +---+---+ + +-------+ +------+---+---+ | midazolam (VERSED) 1 mg/mL | Given | 11/07/19 | 2 mg | | | | injection Intravenous, PRN, | | 18 9:50 | | | | | Anxiety, Starting [place] 11/06/17 at | | AM PDT | | | | | 0950, Anesthesia Intra-op | | | | | | + +-------+ +------+---+---+ +---+---+ | | | +---+---+ + +-------+ +------+---+---+ | ondansetron (ZOFRAN) injection | Given | 11/07/19 | 4 mg | | | | Intravenous, PRN, Nausea, | | 18 10:27 | | | | | Vomiting, Starting 11/06/17 at | | AM PDT | | | | | 1027, Anesthesia Intra-op | | | | | | + +-------+ +------+---+---+ +---+---+ | | | +---+---+ + +-------+ +---------+---+---+ | phenylephrine (LUL-SYNEPHRINE) | Given | 11/07/19 | 100 mcg | | | | 100 mcg/mL injection | | 18 10:53 | | | | | Intravenous, PRN, Starting Sun | | AM PDT | | | | | 11/06/17 at 1015, Anesthesia | | | | | | | Intra-op | | | | | | + +-------+ +---------+---+---+ +-------+ +---------+---+---+ | Given | 11/07/19 | 100 mcg | | | | | 18 10:15 | | | | | | AM PDT | | | | +-------+ +---------+---+---+ +---+---+ | | | +---+---+ + +-------+ +--------+---+---+ | propofol (DIPRIVAN) injection | Given | 11/07/19 | 150 mg | | | | Intravenous, PRN, Starting Sun | | 18 9:59 | | | | | 11/06/17 at 0959, Anesthesia | | AM PDT | | | | | Intra-op | | | | | | + +-------+ +--------+---+---+ +---+---+ | | | +---+---+ + +---------+ + +---------+---+ | propofol (DIPRIVAN) injection | New Bag | 11/07/19 | 25 | 9 mL/hr | | | Intravenous, CONTINUOUS PRN, | | 18 10:27 | mcg/kg/m | | | | Starting 11/06/17 at 1027, | | AM PDT | in | | | | Anesthesia Intra-op | | | | | | + +---------+ + +---------+---+ +---+---+ | | | +---+---+ + +-------+ +--------+---+---+ | ropivacaine (NAROPIN) 5 mg/mL | Given | 11/07/19 | 10 mLs | | | | (0.5%) injection PERINEURAL, | | 18 10:12 | | | | | PRN, Starting 11/06/17 at | | AM PDT | | | | | 1007, Anesthesia Intra-op | | | | | | + +-------+ +--------+---+---+ +-------+ +--------+---+---+ | Given | 11/07/19 | 10 mLs | | | | | 18 10:07 | | | | | | AM PDT | | | | +-------+ +--------+---+---+ +---+---+ | | | +---+---+ + +-------+ +--------+---+---+ | tranexamic acid (CYKLOKAPRON) | Given | 11/07/19 | 500 mg | | | | injection Intravenous, | | 18 11:30 | | | | | Administer over 15 Minutes, PRN, | | AM PDT | | | | | Starting 11/06/17 at 1023, | | | | | | | Anesthesia Intra-op | | | | | | + +-------+ +--------+---+---+ +-------+ + +---+---+ | Given | 11/07/19 | 1,000 mg | | | | | 18 10:23 | | | | | | AM PDT | | | | +-------+ + +---+---+ +---+---+ | | | +---+---+ documented in this encounter
--- OUTSIDE RECORDS SUMMARY | ~2019-11-19 | XMS | Encounter Summary ---
Demographics + + + | Address | [address] | | | [place] [address] | + + + | Home Phone | | + + + | Preferred Language | Unknown | + + + | Marital Status | | + + + | Evangelical Affiliation | Unknown | + + + | Race | White | + + + | Ethnic Group | Not or | + + + Author + + + | Author | [facility] | + + + | Organization | [facility] | + + + | Address | Unknown | + + + | Phone | Unavailable | + + + Support + + +---------+ + | Name | Relationship | Address | Phone | + + +---------+ + | Missy Quinonez | ECON | Unknown | | + + +---------+ + Care Team Providers + +------+ + | Care Puttier Name | Role | Phone | + [...] Endometriosis | | 2006 | Visit | [facility] | [address] | (Primary Dx) | | | | [address] [place], | | | | | [address] | [place] [address] | | | | | [facility] floor | [phone] | | | | | [place], [place] | | | | | | [address] | | | | | | [phone] | | | +--------+---------+ + + + [...] Reeves - 03/18/2006 11:50 AM PDT NEW RADIOLOGY PHYSICIAN VISIT Ethel Gomez is a 30 y.o. [...] This was performed by Dr. Delaney in [place]. She has had pain for 10 years. [...] children. 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 She does exercise. She drinks 1 alcoholic [...]
--- OUTSIDE RECORDS SUMMARY | ~2019-11-19 | XMS | Encounter Summary ---
Demographics + + + | Address | [address] | | | [place] [address] | + + + | Home Phone | | + + + | Preferred Language | Unknown | + + + | Marital Status | | + + + | Religion Affiliation | Unknown | + + + | Race | Unknown | + + + | Ethnic Group | Unknown | + + + Author + + + | Author | [facility] | | | and [place] | + + + | Organization | [facility] | | | and [place] [...] Team Providers + +------+ + | Care Contact Printer Dry Film Name | Role | Phone | + [...] | Specialty | Physical | Diagnoses | Bernabe, | | | | Services | Therapy | Closed | Ryan Rios, | | | | Required | | fracture of | [address] | | | | | | right hip, | [address] | | | | | | initial | [place], | | | | | | encounter | [place] [address] | | | | | | ([facility]) | Phone: | | | | | | | [phone] | | | | | | | Fax: | | | | | | | [phone] | | +--------+ + + + + + Reason for Visit +---------+ + | Reason | Comments | +---------+ + | Post Op | right total hip arthroplasty DOS 11/06/17 | +---------+ + Encounter Details +--------+---------+ + + + | Date | Type | Department | Care Team | Description | +--------+---------+ + + + | 01/13/ | Office | [facility] | Ryan Kidd | Closed fracture of | | 2018 | Visit | ORTHOPEDIC SURGERY | MD Gabriel [address] | right hip, initial | | | | [address] | [place] | encounter (HCC) | | | | [place], [place] | [address] | (Primary Dx) | | | | [address] | | | | | | [phone] | | | +--------+---------+ + + + [...] documented as of this encounter Progress Notes Ryan Kidd MD - 01/13/2018 11:00 AM LulyOlivia Gomez returns for follow-up of her r ight total hip joint arthroplasty performed on 11/06/17 for treatment of a subacute right fem oral neck fracture. She now comes to our office for her first follow-up visit and is braeden t by a friend. She notes that she continues to have intermittent pain in her right hip. Nataly cruz still uses a walker for ambulation intermittently and has sustained several falls post ope ratively. Exam: The right hip is examined. The incision is healed nicely with no evidence of drainag e or infection. Neurovascular function is intact to the patient's right foot. Imaging: X-rays of the right hip are reviewed which show a nicely placed total hip joint ar throplasty with good positioning and no evidence of loosening. Advice: Ethel appears to be doing reasonably well although still is having difficulty with some pain and weakness. We therefore will refer her to physical therapy in [place] at the [facility] for multimodality treatment. We have given her a prescription for tramadol to use as needed as a rescue pain medication. We have strongly advised her to discontinue use of alco hol and tobacco which are undoubtedly been slowing down her recovery. We will see her back for a clinical check in a month. 18 2:54 PM PDTdocumented in this encounter Plan of Treatment + + +--------+ + + | Name | Type | Priori | Associated Diagnoses | Order Schedule | | | | ty | | | + + +--------+ + + | * [facility] | Outpatient | Routin | Closed fracture of | Ordered: 01/13/2018 | | Therapy - AMB | Referral | e | right hip, initial | | | Referral | | | encounter ([facility]) | | + + +--------+ + + documented as of this encounter Visit Diagnoses + + | Diagnosis | + + | Closed fracture of right hip, initial encounter (HCC) - Primary | + + documented in this encounter"
--- OUTSIDE RECORDS SUMMARY | ~2019-11-19 | XMS | Encounter Summary ---
Demographics + + + | Address | [address] | | | [place] [address] | + + + | Home Phone | | + + + | Preferred Language | Unknown | + + + | Marital Status | | + + + | Episcopalian Affiliation | Unknown | + + + | Race | Unknown | + + + | Ethnic Group | Unknown | + + + Author + + + | Author | [facility] | | | and [place] | + + + | Organization | [facility] | | | and [place] [...] Team Providers + +------+ + | Care Coal Mill Operator Name | Role | Phone | [...] + + | 11/06/ | Anesthesia | [facility] | Radha, | | | 2018 | Event | MED CTR OR INTRA OP | Tiesha Rios MD | | | | | [address] | [address] | | | | | [place] | [place] | | | | | [address] | [address] | | | | | [phone] | | | +--------+ + + + [...] +----+---+ + + | | 1 | [place] | | | | 0 | 43-degrees | | | | 3 | | | | | 0 | | | +----+---+ + + | | 1 | First | | | | 0 | [address] | | | | 3 | | | | | 0 | | | +----+---+ + + | | 1 | [place] off | | | | 1 | [...] | | | | | Anxiety, Starting [place] 11/06/17 at | | AM PDT | [...]
--- OUTSIDE RECORDS SUMMARY | ~2019-11-19 | XMS | Encounter Summary ---
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 Family History: Notable for breast cancer [...] event of any recurrences. Sarina Chan M.D. [facility] / [id number] / [id number] / [id number] / cc: Antony Cowan M.D. [facility] [address] [place] [address] [address] [place], [place] [id number] signed by Interface, Screen Printing Loader Unloader In at 12/12/2005 3:05 AM PDTdocumented in this encounter Plan of Treatment Not on filedocumented as of this encounter Visit Diagnoses Not on filedocumented in this encounter"
--- OUTSIDE RECORDS SUMMARY | ~2019-11-19 | XMS | Encounter Summary ---
Demographics + + + | Address | [address] | | | [place] [address] | + + + | Home Phone | | + + + | Preferred Language | Unknown | + + + | Marital Status | | + + + | Restorationism Affiliation | Unknown | + + + | Race | Unknown | + + + | Ethnic Group | Unknown | + + + Author + + + | Author | [facility] | | | and [place] | + + + | Organization | [facility] | | | and [place] [...] Team Providers + +------+ + | Care Kiln Head House Operator Name | Role | Phone | [...] Services | Therapy | Right hip | [facility] | | | Required | | pain Status | MANA [place] | PHYSICAL | | | | | post total | [address] | [address]APY [address] | | | | | hip | St [place] | [facility] | | | | | replacement, | [place], [place] | [place], [place] | | | | | right | [address] | [address] | | | | | | Phone: | Phone: | | | | | | [phone] | [phone] | | | | | | Fax: | Fax: | | | | | | [phone] | [phone] | +--------+ + + + + + [...] post total hip | | | | [place], [place] | [place] [address] | replacement, right | | | | [address] | [phone] | | | | | [phone] | | | +--------+ + + + [...]
--- OUTSIDE RECORDS SUMMARY | ~2019-11-19 | XMS | Encounter Summary ---
Demographics + + + | Address | [address] | | | [place] [address] | + + + | Home Phone | | + + + | Preferred Language | Unknown | + + + | Marital Status | | + + + | Islam Affiliation | Unknown | + + + | Race | Unknown | + + + | Ethnic Group | Unknown | + + + Author + + + | Author | [facility] | | | and [place] | + + + | Organization | [facility] | | | and [...] Team Providers + +------+ + | Care Calciner Operator Helper Name | Role | Phone | + [...] | | NATHAN NANCE | [place] [address] | | | | | [place] [address] | | | | | | [phone] | | | +--------+ + + + [...]
--- OUTSIDE RECORDS SUMMARY | ~2019-11-19 | XMS | Encounter Summary ---
Demographics + + + | Address | [address] | | | [place] [address] | + + + | Home Phone | | + + + | Preferred Language | Unknown | + + + | Marital Status | | + + + | Cheondoism Affiliation | Unknown | + + + | Race | Unknown | + + + | Ethnic Group | Unknown | + + + Author + + + | Author | [facility] | | | and [place] | + + + | Organization | [facility] | | | [...] Team Providers + +------+ + | Care Piece Dye Worker Name | Role | Phone | + +------+ + | Yoandy Resendez MD | PCP | | + +------+ + Encounter Details +--------+ + + + + | Date | Type | Department | Care Team | Description | +--------+ + + + + | 12/29/ | Orders Only | [facility] | Leonard Jean Baptiste | Status post total | | 2018 | | ORTHOPEDIC SURGERY | [address] | hip replacement, | | | | [address] [facility] | [address] [place] | right (Primary Dx); | | | | [place], [place] | [place] [address] | Right hip pain | | | | [address] | [phone] | | | | | [phone] | | | +--------+ + + + [...] | Status post total hip replacement, right - Primary | + + | Right hip pain Pain in joint, pelvic region and thigh | + + documented in this encounter"
--- OUTSIDE RECORDS SUMMARY | ~2019-11-19 | XMS | Encounter Summary ---
Demographics + + + | Address | [address] | | | [place] [address] | + + + | Home Phone [...] + | Author | [facility] | | | and [place] | + + + | Organization | [facility] | | | and [...] Team Providers + +------+ + | Care Sales Correspondent Name | Role | Phone | + [...] [address] | | | | | [address] [facility] | [address] [place] | | | | | [place], [place] | [place] [address] | | | | | [address] | [phone] | | | | | [phone] | | | +--------+--------+ + + + [...]
--- OUTSIDE RECORDS SUMMARY | ~2019-11-19 | XMS | Encounter Summary ---
Demographics + + + | Address | [address] | | | [place] [address] | + + + | Home Phone | | + + + | Preferred Language | Unknown | + + + | Marital Status | | + + + | Oriental Orthodox Affiliation | Unknown | + + + | Race | Unknown | + + + | Ethnic Group | Unknown | + + + Author + + + | Author | [facility] | | | and [place] | + + + | Organization | [facility] | | | and [place] [...] Team Providers + +------+ + | Care Audograph Operator Name | Role | Phone | [...] | | | NISHA M[place]ARTHY | [place] | | | | | | [place], | [address] Phone: | | | | | | [place] [address] | [phone] | | | | | | Phone: | Fax: | | | | | | [phone] | [phone] | | | | | | Fax: | | | | | | | [phone] | | + +--------+ + + + + Encounter Details +--------+---------+ + + + | Date | Type | Department | Care Team | Description | +--------+---------+ + + + | 09/24/ | Office | [facility] | Leonard Jean Baptiste | Strain of lumbar | | 2019 | Visit | ORTHOPEDIC SURGERY | [address] | region, initial | | | | [address] | [address] [place] | encounter (Primary | | | | [place], [place] | [place] [address] | Dx); Greater | | | | [address] | [phone] | trochanteric | | | | [phone] | | bursitis of right | | [...] send her to [facility] [place] for pain reduction measures at both the [...] program. This note was dictated using the Recorded Future voice recognition system. Minor errors in grammar [...]
--- OUTSIDE RECORDS SUMMARY | ~2019-11-19 | XMS | Encounter Summary ---
Demographics + + + | Address | [address] | | | [place] [address] | + + + | Home Phone | | + + + | Preferred Language | Unknown | + + + | Marital Status | | + + + | Worship Affiliation | Unknown | + + + | Race | Unknown | + + + | Ethnic Group | Unknown | + + + Author + + + | Author | [facility] | | | and [place] | + + + | Organization | [facility] | | | and [place] | [...] Team Providers + +------+ + | Care Test Tech Name | Role | Phone | + +------+ + PCP | Unavailable | + +------+ + Encounter Details +--------+ + + + + | Date | Type | Department | Care Team | Description | +--------+ + + + + | 05/12/ | Hospital | [facility] | | | | 2005 | Encounter | MED CTR MP INTRA OP | | | | | | [address] | | | | | | [place] | | | | | | [address] | | | | | | [phone] | | | +--------+ + + + [...]
--- OUTSIDE RECORDS SUMMARY | ~2019-11-19 | XMS | Encounter Summary ---
Demographics + + + | Address | [address] | | | [place] [address] | + + + | Home Phone | | + + + | Preferred Language | Unknown | + + + | Marital Status | | + + + | Jain Affiliation | Unknown | + + + | Race | Unknown | + + + | Ethnic Group | Unknown | + + + Author + + + | Author | [facility] | | | and [place] | + + + | Organization | [facility] | | | and [place] | [...] Team Providers + +------+ + | Care Wound Care Coordinator Name | Role | Phone | + +------+ + | Yoandy Resendez MD | PCP | | + +------+ + Encounter Details +--------+ + + + + | Date | Type | Department | Care Team | Description | +--------+ + + + + | 11/05/ | Hospital | [facility] | Conversion | Arthralgia of hip, | | 2017 | Encounter | CONVERSION DEP 888 | Transaction, | unspecified | | | | YANNI MUNOZ | Provider Unknown | laterality | | | | [place] | [phone] | | | | | [address] | | | | | | [phone] | | | +--------+ + + + [...]
--- OUTSIDE RECORDS SUMMARY | ~2019-11-19 | XMS | Encounter Summary ---
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 Family History: Notable for breast cancer [...] event of any recurrences. Sarina Chan M.D. [facility] / [id number] / [id number] / [id number] / cc: Antony Cowan M.D. [facility], [facility] [address] [place] [address] [address] [place], [place] [id number] signed by Interface, Director Of Category Management In at 12/12/2005 3:05 AM PDTdocumented in this encounter Plan of Treatment Not on filedocumented as of this encounter Visit Diagnoses Not on filedocumented in this encounter"
--- OUTSIDE RECORDS SUMMARY | ~2019-11-19 | XMS | Encounter Summary ---
Demographics + + + | Address | [address] | | | [place] [address] | + + + | Home Phone [...] | Organization | [facility] | | | and [place] [...] Team Providers + +------+ + | Care Magnetometer Operator Name | Role | Phone | + +------+ + | Yoandy Resendez MD | PCP | | + +------+ + Encounter Details +--------+ + + + + | Date | Type | Department | Care Team | Description | +--------+ + + + + | 09/24/ | Hospital | [facility] | Leonard Jean Baptiste | Right hip pain; | | 2019 | Encounter | MED [facility] [address] [facility] | [address] | Status post total | | | | [address] [place] | [address] [place] | hip replacement, | | | | [place] | [place] [address] | right | | | | [address] | [phone] | | | | | [phone] | | | +--------+ + + + [...]
--- OUTSIDE RECORDS SUMMARY | ~2019-11-19 | XMS | Clinical Summary ---
Demographics + + + | Address | [address] | | | [place] [address] | + + + | Home Phone | | + + + | Preferred Language | Unknown | + + + | Marital Status | | + + + | Jew Affiliation | Unknown | + + + | Race | Unknown | + + + | Ethnic Group | Unknown | + + + Author + + + | Author | [facility] | | | and [place] | + + + | Organization | [facility] | | | and [place] [...] Team Providers + +------+ + | Care Legal Cashier Name | Role | Phone | + [...] 09/24/ | Office | Orthopedic Surgery | Leonard Jean Baptiste | Strain of [...] | + + + + | INFLUENZA, [id number], | 06/14/2009 | | | LIVE ATTENUATED [...] /N/A | | Ryan Rios MD at [facility] | | | | | | /[id number] | | [facility] | | | | | | 08 | | CENTER | | | | | | | + +--------+--------+ +--------+--------+--------+ | Liner Cocr Dl Mob 40mm D - | Generi | Right: | JORGE - | | 07/25/ | [id number] | | Sn/AImplanted: Qty: 1 on | c | Hip | ZIMM | | 2027 | 462 | | 11/06/2017 by Bernabe, | | | | | | /N/A | | Ryan Rios MD at [facility] | | | | | | /[id number] | | [facility] | | | | | | 0 | | CENTER | | | | | | | + +--------+--------+ +--------+--------+--------+ | Imp Hip Acet Lnr E-Ply | Generi | Right: | JORGE - | | 09/22/ | EP-200 | | [id number] - Sn/AImplanted: Qty: | c | Hip | ZIMM | | 2022 | 146 | | 1 on 11/06/2017 by | | | | | | /N/A | | Ryan Kidd MD at | | | | | | /[id number] | | [facility] | | | | | | 0 | | [facility] | | | | | | | [...] /N/A | | Ryan Rios MD at [facility] | | | | | | /[id number] | | [facility] | | | | | | 37 | | CENTER | | | | | | | + +--------+--------+ +--------+--------+--------+ | Imp Hip Fem Stem Actis Std | Generi | Right: | JJHCS DEPUY | | 10/24/ | [id number] | | [id number] - Sn/AImplanted: Qty: 1 | c | Hip | ORTHO - | | 2026 | 040 | | on 11/06/2017 by Bernabe, | | | DEPU | | | /N/A | | Ryan Rios MD at [facility] | | | | | | /[id number] | | [facility] | | | | | | [...] | [employer] | MOD[employer] | [id number] | | [phone] | | Medica | [...] Person | Self | [birth year] | | [address] | | | al/Fam | | 1976 | [phone] | [place] [address] | | | [place] | | | 4 (Home) | | + +--------+ +--------+ + + Advance Directives + + + + + | Type | Date Recorded | Patient | Explanation | | | | Cryptanalyst | | + + + + + | Power of | | | | | Bailer Operators Supervisor | | | | + + + [...]
--- OUTSIDE RECORDS SUMMARY | ~2019-11-19 | XMS | Encounter Summary ---
Demographics + + + | Address | [address] | | | [place] [address] | + + + | Home Phone | | + + + | Preferred Language | Unknown | + + + | Marital Status | | + + + | Alevism Affiliation | Unknown | + + + | Race | Unknown | + + + | Ethnic Group | Unknown | + + + Author + + + | Author | [facility] | | | and [place] | + + + | Organization | [facility] | | | and [...] Team Providers + +------+ + | Care Hot End Operator Name | Role | Phone | [...] | | NATHAN NANCE | [place] [address] | | | | | [place] [address] | | | | | | [phone] | | | +--------+ + + + [...] + documented in this encounter Results CT Cervical Spine wo Contrast (11/05/2017 6:55 [...]
--- OUTSIDE RECORDS SUMMARY | ~2019-11-19 | XMS | Encounter Summary ---
Demographics + + + | Address | [address] | | | [place] [address] | + + + | Home Phone | | + + + | Preferred Language | Unknown | + + + | Marital Status | | + + + | Yazidism Affiliation | Unknown | + + + | Race | Unknown | + + + | Ethnic Group | Unknown | + + + Author + + + | Author | [facility] | | | and [place] | + + + | Organization | [facility] | | [...] Team Providers + +------+ + | Care Cotton Farmer Name | Role | Phone | + [...] hip replacement, | | | | [address] [facility] | [address] [place] | right (Primary Dx); | | | | [place], [place] | [place] [address] | Right hip pain | | | | [address] | [phone] | | | | | [phone] | | | +--------+ + + + [...]
--- OUTSIDE RECORDS SUMMARY | ~2019-11-19 | XMS | Encounter Summary ---
Demographics + + + | Address | [address] | | | [place] [address] | + + + | Home Phone | | + + + | Preferred Language | Unknown | + + + | Marital Status | | + + + | Presybeterian Affiliation | Unknown | + + + | Race | Unknown | + + + | Ethnic Group | Unknown | + + + Author + + + | Author | [facility] | | | and [place] | + + + | Organization | [facility] | | | and [...] Team Providers + +------+ + | Care Manager Psychiatry Name | Role | Phone | + +------+ + | Yoandy Resendez MD | PCP | | + +------+ + Encounter Details +--------+ + + + + | Date | Type | Department | Care Team | Description | +--------+ + + + + | 01/13/ | Hospital | [facility] | Leonard Jean Baptiste | Status post total | | 2018 | Encounter | MED [facility] [address] | [address] | hip replacement, | | | | [address] [place] | [address] [place] | right; Right hip | | | | [place], [place] | [place] [address] | pain | | | | [address] | [phone] | | | | | [phone] | | | +--------+ + + + [...]
--- OUTSIDE RECORDS SUMMARY | ~2019-11-19 | XMS | Encounter Summary ---
Demographics + + + | Address | [address] | | | [place] [address] | + + + | Home Phone | | + + + | Preferred Language | Unknown | + + + | Marital Status | | + + + | Restoration Affiliation | Unknown | + + + | Race | Unknown | + + + | Ethnic Group | Unknown | + + + Author + + + | Author | [facility] | | | and [place] | + + + | Organization | [facility] | | | and [...] Team Providers + +------+ + | Care Director Automotive Name | Role | Phone | + [...] | | | | | encounter | [place] [address] | | | | | | ([facility]) | Phone: | | | | | | | [phone] | | | | | | | Fax: | | | | | | | [phone] | | +--------+ + + + + + Reason for Visit +---------+ + | Reason | Comments | +---------+ + | Post Op | right total hip arthroplasty DOS 11/06/17 | +---------+ + Encounter Details +--------+---------+ + + + | Date | Type | Department | Care Team | Description | +--------+---------+ + + + | 01/13/ | Office | [facility] | Ryan Kidd | Closed fracture of | | 2018 | Visit | ORTHOPEDIC SURGERY | MD Gabriel [address] | right hip, initial | | | | [address] | [place] | encounter (HCC) | | | | [place], [place] | [address] | (Primary Dx) | | | | [address] | | | | | | [phone] | | | +--------+---------+ + + + [...] will refer her to physical therapy in [place] at the [facility] for multimodality treatment. We have [...] | | Referral | | | encounter ([facility]) | | + + +--------+ + + documented as of this encounter Visit Diagnoses + + | Diagnosis | + + | Closed fracture of right hip, initial encounter (HCC) - Primary | + + documented in this encounter"
--- OUTSIDE RECORDS SUMMARY | ~2019-11-19 | XMS | Encounter Summary ---
Demographics + + + | Address | [address] | | | [place] [address] | + + + | Home Phone | | + + + | Preferred Language | Unknown | + + + | Marital Status | | + + + | Advent Affiliation | Unknown | + + + | Race | Unknown | + + + | Ethnic Group | Unknown | + + + Author + + + | Author | [facility] | | | and [place] | + + + | Organization | [facility] | | | and [place] [...] Team Providers + +------+ + | Care Sow Farm Barn Technician Name | Role | Phone | + [...] | | NATHAN NANCE | [place] [address] | | | | | [place] [address] | | | | | | [phone] | | | +--------+ + + + [...]
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
[2019-11-19] MEDS ORDERED: KEPPRA500 MG PO (21:20)
[2019-11-19] MEDS ORDERED: CHLORDIAZEPOXID25 MG PO (21:20)
--- NOTE | 2019-11-22 13:07 | EKG ---
[facility] [address] [facility] [place] [address] Signed Normal sinus rhythm Possible Left atrial enlargement Borderline ECG When compared with ECG of 04-APR-2019 08:27, T wave amplitude has increased in Lateral leads Confirmed by JOURDAN MALHOTRA MD ([id number]) on 11/22/2019 1:07:48 PM Electronically Signed By: JOURDAN MALHOTRA MD 11/22/19 1307 PATIENT NAME: RIVERA CAMILO Electrocardiogram DATE OF : 75 PHYSICIAN: JOURDAN MALHOTRA MD REPORT #: [id number] REPORT IS CONFIDENTIAL AND NOT TO BE RELEASED WITHOUT AUTHORIZATION
== END 2019-11-19 21:47 | disposition home or self-care (01) ==
LOC: ED 18:30
DX: G40.909 Epilepsy, unspecified, not intractable, without status epilepticus (principal); R55 Syncope and collapse; I10 Essential (primary) hypertension; F17.200 Nicotine dependence, unspecified, uncomplicated; Z79.899 Other long term (current) drug therapy; V89.2XXA Person injured in unspecified motor-vehicle accident, traffic, initial encounter
CPT/HCPCS: 70450; 71045; 80053; 81001; 84484; 85025; 93005; 93010; 96361; 96365; 96366; 96375; 99285-25; G0480; J1953; J2060; J7030

== ENCOUNTER 2021-09-23 11:42 | Inpatient (IN) | payer OTHER ==
[~2021-09-23] VITALS: Ht 162.6 cm; Wt 66.6 kg
[~2021-09-23 11:42] MED LIST changes: +CHLORDIAZEPOXID25 MG PO; +KEPPRA500 MG PO
--- OUTSIDE RECORDS SUMMARY | 2021-09-23 11:50 | XMS ---
PreManage Notification: RIVERA CAMILO Security Tailor Helper Events No recent Security Events currently on file CRITERIA MET - Group Notification CARE PROVIDERS RANDY VARELA Internal Medicine Current PHONE: [phone] JOURDAN MALHOTRA Internal Medicine 03/06/2018-Current PHONE: [phone] Leonard Jean Baptiste Physician Electric Engine Mechanic: Surgical 11/21/2019-Current PHONE: [phone] Chrissie has no Care Guidelines for this patient. Care History Medical/Surgical 04/05/2019 [facility] CASE MANAGEMENT REFERRAL MADE- PATIENT HAS [facility] AND NO PCP. E.D. VISIT COUNT (12 MO.) 1 LEN[facility] Slater TOTAL 1 NOTE: Visits indicate total known visits. ED/UCC VISIT TRACKING (12 MO.) 09/23/2021 11:43 [facility] Goins OR TYPE: Emergency COMPLAINT: - ABDOMINAL PAIN, VOMITING INPATIENT VISIT TRACKING (12 MO.) No inpatient visits to display in this time frame [email or web address]
[2021-09-23] MEDS ORDERED: METOPROLOL SUC100 MG PO (12:09)
[2021-09-23] MEDS ORDERED: KEPPRA750 MG PO (16:36)
[2021-09-23] MEDS ORDERED: TRAZODONE HCL50 MG PO (18:08)
[2021-09-25] MEDS ORDERED: CHLORHEXIDINE473 ML MM (10:27)
[2021-09-25] MEDS ORDERED: TYLENOL325 MG PO (10:28)
[2021-09-25] MEDS ORDERED: MULTI VITAMIN1 EACH PO (10:28)
[2021-10-01] MEDS ORDERED: GABAPENTIN300 MG PO (13:21)
[2021-10-01] MEDS ORDERED: OXYCODONE HCL10 MG PO (13:21)
== END 2021-10-01 15:29 | disposition home or self-care (01) | DRG 439 ==
LOC: ED 11:42 → CCU 16:12 → MS 09-29 13:55
PROVIDERS: ADMIT Internal Medicine; ATTEND Internal Medicine
PROC: 02H633Z Insertion of Infusion Device into Right Atrium, Percutaneous Approach (ICD-10-PCS; principal; 2021-09-23)
DX: K85.21 Alcohol induced acute pancreatitis with uninfected necrosis (principal); K86.3 Pseudocyst of pancreas; R18.8 Other ascites; J98.11 Atelectasis; Z20.822 Contact with and (suspected) exposure to COVID-19; E87.6 Hypokalemia; E83.42 Hypomagnesemia; F10.20 Alcohol dependence, uncomplicated; I10 Essential (primary) hypertension; G40.909 Epilepsy, unspecified, not intractable, without status epilepticus; G47.00 Insomnia, unspecified; F17.200 Nicotine dependence, unspecified, uncomplicated; Z90.710 Acquired absence of both cervix and uterus; Z79.899 Other long term (current) drug therapy
CPT/HCPCS: 36415; 36569; 71045; 74018; 74177; 80048; 80053; 80061; 81001; 83690; 83735; 85025; 86140; 87088; 96375; 96376; 99285-25; A9270; C1751; C9803; J0780; J1170; J1650; J1940; J1953; J2185; J2270; J2405; J2550; J3411; J3475; J3480; J7030; J7120; J7121; Q0177; Q9967; U0003